=== PATIENT | female | born 1945 | race Caucasian/White ===

== ENCOUNTER → 2016-06-16 | Outpatient (CLI) | payer MEDICARE, OTHER ==
[~2016-06-16] MED LIST: ACHD5005 PO; BARIUM SUSPENSION 2.1% (VANILLA SILQ) 450 ML PO ONE; CALC-250 PO; CATHETER FLUSH 10 ML SYR IV PRN; CHOL100045 PO; CIPR500T4 PO; CYAN250010 PO; FOLI1TAB6 PO; HYDR-3454 PO; HYDR-3583 PO; HYDR-3729 PO; HYDR-757 PO; IBP800T PO; IOHEXOL 350 MG/ML 100 ML (OMNIPAQUE 350) VIAL IV ONE; MULT-608 PO; NITR-65 PO; NS 100 ML (IVPB) BAG IV ONE; OMEP20CA6 PO; PNT40TEC PO; POTA99TA15 PO; POTA99TA21 PO; ROSU10TA12; ROSU5TAB PO; SIME125C PO; SIMV10TA3 PO; SIMV20TA3 PO; THYR16.2 PO; TRM50T PO; VITA200C60 PO
--- OUTSIDE RECORDS SUMMARY | 2016-06-16 12:43 | XMS REPORT | Continuity of Care Document ---
Author Author [facility] Organization [facility] Address Unknown Phone Unavailable Care Team Providers Care Front End Ui Developer Name Role Phone PCP Unavailable Source Comments Some departments are not documenting in the electronic medical record. If you do not see the information that you expected, contact Release of Information in the Health Information Management department at [phone] for further assistance in locating additional records.[facility] Active Allergies and Adverse Reactions Not on File Current Medications Not on file Active Problems Not on file Social History Tobacco Use Types Packs/Day Years Used Date Never Assessed Plan of Care Date Type Specialty Providers Description 09/05/2016 Appointment Endocrinology Belen Guerrier MD [address] [facility] [address] [place] [address] [phone] (Fax) Health Maintenance Due Date Last Done Comments Hepatitis C Screening 1945 Physical (Comprehensive) 1954 Exam Pertussis Vaccine 1958 Tetanus Vaccine 1964 Breast Cancer Screening 1987 Colorectal Cancer 1997 Screening Shingles Vaccine 2007 Osteoporosis Screening 2012 Prevnar/Pneumovax (#1) 2012 Influenza Vaccine 12/31/2015 Results from Last 3 Months Not on file
--- NOTE | 2016-06-16 15:24 | Diagnostic Imaging Report ---
PROCEDURE: CT abdomen and pelvis with contrast. TECHNIQUE: Multiple contiguous axial images were obtained through the abdomen and pelvis after administration of intravenous contrast. INDICATION: History of colon polyps with previous partial colectomy as well as hysterectomy. Comparison with 06/15/2015. FINDINGS: The lung bases are clear. Liver appears normal. The gallbladder is absent. Bile ducts are normal. Pancreas and spleen are normal. The adrenal glands are normal. The kidneys appear normal. There is normal enhancement of the abdominal organs and vessels following IV contrast. Mild atherosclerotic change of the aorta. Oral contrast is present in the stomach. Very little contrast is seen in the small bowel. No evidence of small bowel obstruction. There has been partial small bowel resection. The appendix is normal. There is normal stool and gas pattern within the colon. There are diverticula along the descending and sigmoid colon without evidence of diverticulitis. No intra-abdominal adenopathy of pathologic size. No free air or free fluid. IMPRESSION: Postoperative changes as described with no significant changes having occurred since previous exam. Dictated by: Dictated on workstation # [id number]
--- NOTE | 2016-06-16 18:11 | Diagnostic Imaging Report ---
PROCEDURE: US Thyroid. TECHNIQUE: Multiple real-time grayscale images were obtained of the thyroid in various projections. INDICATION: Left thyroid nodule. FINDINGS: The right thyroid lobe is 4 x 1.4 x 1.4 cm. The left lobe is 4.3 x 1.4 x 1.5 cm. In the upper pole of the left thyroid lobe there is a nodule measuring 1 x 0.6 x 0.9 cm with mild peripheral vascularity. No other nodule is seen. IMPRESSION: Nonspecific 1 cm upper left thyroid lobe solid nodule seen. Follow-up study in six months is suggested. Dictated by: Dictated on workstation # [id number]
== END ==
LOC: RAD 12:39
PROVIDERS: ATTEND Internal Medicine Hematology & Oncology
DX: K57.30 Diverticulosis of large intestine without perforation or abscess without bleeding (principal); D48.7 Neoplasm of uncertain behavior of other specified sites; Z98.0 Intestinal bypass and anastomosis status; E04.1 Nontoxic single thyroid nodule
CPT/HCPCS: 74177; 76536

== ENCOUNTER 2016-06-23 14:16 | Outpatient (RCR) | payer MEDICARE, OTHER ==
--- OUTSIDE RECORDS SUMMARY | 2016-06-02 12:55 | XMS REPORT | Continuity of Care Document ---
Author Author [facility] Organization [facility] Address Unknown Phone Unavailable Care Team Providers Care Genetic Counselor Name Role Phone PCP Unavailable Source Comments Some departments are not documenting in the electronic medical record. If you do not see the information that you expected, contact Release of Information in the Health Information Management department at [phone] for further assistance in locating additional records.[facility] Active Allergies and Adverse Reactions Not on File Current Medications Not on file Active Problems Not on file Social History Tobacco Use Types Packs/Day Years Used Date Never Assessed Plan of Care Date Type Specialty Providers Description 09/05/2016 Appointment Endocrinology Belen Guerrier MD [address] [facility] [address] [place] [address] [phone] (Fax) Health Maintenance Due Date Last Done Comments Hepatitis C Screening 1945 Physical (Comprehensive) 1954 Exam Pertussis Vaccine 1958 Tetanus Vaccine 1964 Breast Cancer Screening 1987 Colorectal Cancer 1997 Screening Shingles Vaccine 2007 Osteoporosis Screening 2012 Prevnar/Pneumovax (#1) 2012 Influenza Vaccine 12/31/2015 Results from Last 3 Months Not on file
[2016-06-02 13:06] LABS: BASOPHILS % (AUTO) 0 % (0-10); EOSINOPHILS # (AUTO) 0.2 10^3/uL (0.0-0.3); EOSINOPHILS % (AUTO) 4 % (0-10); LYMPHOCYTES % (AUTO) 41 % (12-44); MEAN CORPUSCULAR HEMOGLOBIN 30 PG (25-34); MEAN CORPUSCULAR HGB CONC 34 G/DL (32-36); MEAN CORPUSCULAR VOLUME 89 FL (80-99); MEAN PLATELET VOLUME 9.2 FL (7.4-10.4); MONOCYTES # (AUTO) 0.4 X 10^3 (0.0-1.0); MONOCYTES % (AUTO) 8 % (0-12); NEUTROPHILS # (AUTO) 2.4 X 10^3 (1.8-7.8); NEUTROPHILS % (AUTO) 47 % (42-75); PLATELET COUNT 202 10^3/uL (130-400)
[2016-06-02 13:40] LABS: ALANINE AMINOTRANSFERASE 19 U/L (0-55); ALBUMIN 4.1 G/DL (3.2-4.5); ANION GAP 7 MMOL/L (5-14); ASPARTATE AMINO TRANSFERASE 27 U/L (5-34); BILIRUBIN,TOTAL 0.4 MG/DL (0.1-1.0); BLOOD UREA NITROGEN 20 MG/DL (7-18); BUN/CREATININE RATIO 26; CALCIUM 8.9 MG/DL (8.5-10.1); CARBON DIOXIDE 27 MMOL/L (21-32); CHLORIDE 104 MMOL/L (98-107); CREATININE SERUM 0.76 MG/DL (0.60-1.30); GFR ESTIMATED > 60; GLUCOSE 87 MG/DL (70-105); POTASSIUM 4.1 MMOL/L (3.6-5.0); SODIUM 138 MMOL/L (135-145); TOTAL PROTEIN 6.8 G/DL (6.4-8.2)
== END 2016-08-31 | disposition home or self-care (01) ==
LOC: ONC 14:16
PROVIDERS: ATTEND Internal Medicine Hematology & Oncology
DX: D48.1 Neoplasm of uncertain behavior of connective and other soft tissue (principal); E04.1 Nontoxic single thyroid nodule; K27.7 Chronic peptic ulcer, site unspecified, without hemorrhage or perforation; Z86.010 Personal history of colon polyps; Z79.899 Other long term (current) drug therapy
CPT/HCPCS: 36415; 80053; 84439; 84443; 85025; 99213

== ENCOUNTER → 2016-06-23 | Outpatient (CLI) | payer MEDICARE, OTHER ==
[~2016-06-23] MED LIST changes: -BARIUM SUSPENSION 2.1% (VANILLA SILQ) 450 ML PO ONE; -CATHETER FLUSH 10 ML SYR IV PRN; -IOHEXOL 350 MG/ML 100 ML (OMNIPAQUE 350) VIAL IV ONE; -NS 100 ML (IVPB) BAG IV ONE
--- OUTSIDE RECORDS SUMMARY | 2016-06-23 15:16 | XMS REPORT | Continuity of Care Document ---
Author Author [facility] Organization [facility] Address Unknown Phone Unavailable Care Team Providers Care Data Entry Technician Name Role Phone PCP Unavailable Source Comments Some departments are not documenting in the electronic medical record. If you do not see the information that you expected, contact Release of Information in the Health Information Management department at [phone] for further assistance in locating additional records.[facility] Active Allergies and Adverse Reactions Not on File Current Medications Not on file Active Problems Not on file Social History Tobacco Use Types Packs/Day Years Used Date Never Assessed Plan of Care Date Type Specialty Providers Description 09/05/2016 Appointment Endocrinology Belen Guerrier MD [address] [facility] [address] [place] [address] [phone] (Fax) Health Maintenance Due Date Last Done Comments Hepatitis C Screening 1945 Physical (Comprehensive) 1954 Exam Pertussis Vaccine 1958 Tetanus Vaccine 1964 Breast Cancer Screening 1987 Colorectal Cancer 1997 Screening Shingles Vaccine 2007 Osteoporosis Screening 2012 Prevnar/Pneumovax (#1) 2012 Influenza Vaccine 12/31/2015 Results from Last 3 Months Not on file
--- NOTE | 2016-06-23 16:12 | Diagnostic Imaging Report ---
Lumbar spine. INDICATION: Fell, back pain. FINDINGS: AP, lateral and spot lateral views were obtained. The lateral view shows the vertebral body heights and alignment to be similar to the prior MRI lumbar spine exam of 09/05/2014. There is no fracture or acute bony abnormality evident. There may be somewhat greater narrowing of disc spaces at L1-L2, L2-L3, and L3-L4 than noted on the previous study. The other intervertebral disc spaces are fairly well maintained. There are six lumbar type vertebrae. This is a developmental variant. There is no sign of a paraspinal mass. There is mild symmetrical sclerosis of the sacroiliac joints. There is no paraspinal mass visualized. IMPRESSION: There is no evidence for an acute bony abnormality. If clinical concern regarding an acute abnormality persists, then a repeat MRI lumbar spine exam would be recommended for further evaluation. Dictated by: Dictated on workstation # [id number]
--- NOTE | 2016-06-23 16:17 | Diagnostic Imaging Report ---
EXAMINATION: Thoracic spine. INDICATION: Fell, back pain. TECHNIQUE: AP, lateral, and swimmer's views were obtained. FINDINGS: The AP view does show that there is mild dextroscoliosis of the thoracic spine. This appearance is similar to the CTA chest exam of 04/13/2015. 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 These findings also seem similar to the prior exam. There is no fracture or acute bony abnormality identified. There is no evidence for a paraspinal mass either. IMPRESSION: 1. There is no evidence for an acute bony abnormality. 2. If clinical concern regarding an underlying abnormality persists, then MRI would be recommended for further evaluation. Dictated by: Dictated on workstation # [id number]
== END ==
LOC: RAD 15:14
PROVIDERS: ATTEND Nurse Practitioner Family
DX: M54.5 Low back pain (principal)
CPT/HCPCS: 72072; 72100

== ENCOUNTER → 2016-11-16 | Outpatient (CLI) | payer MEDICARE, OTHER | LOC: RAD 15:52 | PROVIDERS: ATTEND Nurse Practitioner Family | DX: Z12.31 Encounter for screening mammogram for malignant neoplasm of breast (principal) | CPT/HCPCS: 77067 ==

== ENCOUNTER → 2016-12-21 | Outpatient (CLI) | payer MEDICARE, OTHER ==
--- NOTE | 2016-12-21 10:13 | Diagnostic Imaging Report ---
PROCEDURE: US Thyroid. TECHNIQUE: Multiple Real-time grayscale images were obtained of the thyroid in various projections. INDICATION: Thyroid nodule. FINDINGS: The thyroid ultrasound exam performed on 06/05/2015 noted a 1.3 x 0.7 cm nodule in the superior pole of the left lobe of the thyroid. The I-123 thyroid uptake exam on 12/16/2015 showed normal uptake. On the subsequent thyroid ultrasound exam performed on 06/16/2016, the nodule measured 1.0 x 0.6 x 0.9 cm. That finding is again evident on this study and now measures 1.1 x 0.7 x 1.0 cm. The stable appearance of this nodule does suggest that it is not related to an aggressive neoplastic process. The other smaller hypoechoic areas within the left lobe seen previously are unchanged as well. The right lobe is homogeneous. The thyroid gland itself is not enlarged with the right lobe measuring 3.8 x 1.2 x 1.4 cm and the left lobe estimated to be 3.9 x 1.4 x 1.6 cm (normal gland size 4-5 x 2 x 2 cm or less). IMPRESSION: 1. The nodule in the superior pole of the left lobe seems stable. Most likely, this is a benign process. If further study is desired, then a followup ultrasound exam in 1 year would be recommended. 2. The overall appearance of the thyroid gland has not significantly changed. No new abnormality has developed. Dictated by: Dictated on workstation # [id number]
== END ==
LOC: RAD 09:02
PROVIDERS: ATTEND Internal Medicine Hematology & Oncology
DX: E04.1 Nontoxic single thyroid nodule (principal)
CPT/HCPCS: 76536

== ENCOUNTER → 2017-05-09 | Outpatient (CLI) | payer MEDICARE, OTHER ==
--- NOTE | 2017-05-09 19:08 | Diagnostic Imaging Report ---
INDICATION: Fall with right knee pain AP, oblique and lateral views of the right knee are obtained. There is diffuse osseous demineralization. There is a mildly depressed fracture involving the lateral tibial plateau. No other definite fracture or dislocation is seen. 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 IMPRESSION: Mildly depressed fracture involving the lateral tibial plateau without other acute abnormality seen. Dictated by: Dictated on workstation # [id number]
== END ==
LOC: RAD 18:09
PROVIDERS: ATTEND Nurse Practitioner Family
DX: S82.141A Displaced bicondylar fracture of right tibia, initial encounter for closed fracture (principal); W19.XXXA Unspecified fall, initial encounter
CPT/HCPCS: 73562

== ENCOUNTER 2017-05-22 23:25 | Emergency (ER) | payer MEDICARE, OTHER ==
[~2017-05-22] VITALS: Ht 165.1 cm; Wt 70.3 kg
--- OUTSIDE RECORDS SUMMARY | 2017-05-22 23:34 | XMS REPORT | Continuity of Care Document ---
Author Author [facility] Organization [facility] Address Unknown Phone Unavailable Care Team Providers Care Child & Adolescent Psychiatrist Name Role Phone [employer] Unavailable Unavailable Problems Medications Allergies, Adverse Reactions, Alerts Immunizations Results Vital Signs Encounters Location Location Details Encounter Type Encounter Number Reason For Visit Attending Provider ADM Date DC Date Status Source OUTPATIENT [id number] JOVANI SERNA 09/05/2016 09/05/2016 Active [facility] Divya RUSSELL Active [facility] Procedures Plan of Care Social History Assessment and Plan Family History Advance Directives Functional Status
--- OUTSIDE RECORDS SUMMARY | 2017-05-22 23:34 | XMS REPORT | Clinical Summary ---
Author Author [facility] Organization [facility] Address Unknown Phone Unavailable Care Team Providers Care Mixed Crop [employer] Livestock Farm Worker Name Role Phone PCP Unavailable Source Comments Some departments are not documenting in the electronic medical record. If you do not see the information that you expected, contact Release of Information in the Health Information Management department at [phone] for further assistance in locating additional records.[facility] Allergies Active Allergy Reactions Severity Noted Date Comments Penicillins HIVES Medium 09/05/2016 Sulfa (Sulfonamide HIVES Medium 09/05/2016 Antibiotics) Current Medications Prescription Sig. Disp. Refills Start End Date Status Date CALCIUM CARBONATE/VITAMIN Take by mouth. Active D3 (CALCIUM + D PO) MULTIVITAMIN PO Take by mouth. Active simvastatin (ZOCOR) 20 mg Take 20 mg by mouth at Active tablet bedtime daily. POTASSIUM (POTASSIMIN PO) Take by mouth. Active cholecalciferol (VITAMIN Take 1,000 Units by mouth Active D-3) 1,000 units tablet daily. magnesium oxide (MAG-OX) Take 400 mg by mouth Active 400 mg tablet daily. UBIDECARENONE (COQ-10 PO) Take by mouth. Active Active Problems No known active problems Family History Medical History Relation Name Comments Arthritis-rheumatoid Daughter Thyroid Disease Daughter Heart Disease Father Hypertension Father Osteoporosis Father Stroke Father Cancer Mother Hypertension Sister Relation Name Status Comments Daughter Alive Father Mother Sister Alive Social History Tobacco Use Types Packs/Day Years Used Date Never Smoker Smokeless Tobacco: Never Used Alcohol Use Drinks/Week oz/Week Comments No Sex Assigned at Date Recorded Not on file Last Filed Vital Signs Vital Sign Reading Time Taken Blood Pressure 144/75 09/05/2016 1:01 PM CDT Pulse 74 09/05/2016 1:01 PM CDT Temperature - - Respiratory Rate - - Oxygen Saturation - - Inhaled Oxygen - - Concentration Weight 71.5 kg (157 lb 11.2 oz) 09/05/2016 1:01 PM CDT Height 164.6 cm (5' 4.8") 09/05/2016 1:01 PM CDT Body Mass Index 26.4 09/05/2016 1:01 PM CDT Plan of Treatment Health Maintenance Due Date Last Done Comments HEPATITIS C SCREENING 1945 PHYSICAL (COMPREHENSIVE) 1952 EXAM PERTUSSIS VACCINE 1958 TETANUS VACCINE 1964 BREAST CANCER SCREENING 1987 COLORECTAL CANCER 1997 SCREENING SHINGLES VACCINE 2007 OSTEOPOROSIS SCREENING 2012 PREVNAR/PNEUMOVAX (#1) 2012 INFLUENZA VACCINE 11/29/2016 Results Not on filefrom Last 3 Months
--- OUTSIDE RECORDS SUMMARY | 2017-05-22 23:36 | XMS REPORT | CCD ---
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 Respiratory No snoring 09/10/2013 Respiratory No wheezing 09/10/2013 Gastrointestinal No hemorrhoids 2013 Gastrointestinal No abdominal pain 2013 Gastrointestinal No constipation 2013 Gastrointestinal No diarrhea 09/10/2013 Gastrointestinal No gastroesophageal reflux 09/10/2013 Gastrointestinal No melena 09/10/2013 Gastrointestinal No nausea 09/10/2013 Gastrointestinal No vomiting 09/10/2013 Genitourinary/Nephrology No dysuria 09/10 Genitourinary/Nephrology No nocturia Genitourinary/Nephrology No urinary incontinence 09/10/2013 Dermatologic No rash 09/10/2013 Dermatologic No scar 09/10/2013 Neurologic No dizziness 09/10/2013 Neurologic No headache 09/10/2013 Neurologic No neck pain 09/10/2013 Neurologic No syncope 09/10/2013 Psychiatric No anxiety 09/10/2013 Psychiatric No depression 09/10/2013 Constitutional No recent illness 2013 Constitutional No chills 05/27/2013 Constitutional No fatigue 05/27/2013 Constitutional No fever 05/27/2013 Constitutional No insomnia 05/27/2013 Constitutional No malaise 05/27/2013 Eyes No blindness 05/27/2013 Eyes No vision change 05/27/2013 Ears/Nose/Throat/Neck No dental pain Ears/Nose/Throat/Neck No dizziness 2013 Ears/Nose/Throat/Neck No dysphagia 2013 Ears/Nose/Throat/Neck No headache 2013 Ears/Nose/Throat/Neck No hearing loss Ears/Nose/Throat/Neck No nasal allergies 05/27/2013 Ears/Nose/Throat/Neck No sore throat Ears/Nose/Throat/Neck No postnasal drip 05/27/2013 Ears/Nose/Throat/Neck No sinus congestion 05/27/2013 Cardiovascular No chest pain/pressure Cardiovascular No dyspnea 05/27/2013 Cardiovascular No edema 05/27/2013 Cardiovascular No exercise intolerance Cardiovascular No fatigue 05/27/2013 Cardiovascular No near-syncope/dizziness 05/27/2013 Respiratory No chest tightness 2013 Respiratory No cigarette smoking 2013 Respiratory No cough 05/27/2013 Respiratory No dyspnea 05/27/2013 Respiratory No pedal edema 05/27/2013 Respiratory No snoring 05/27/2013 Respiratory No wheezing 05/27/2013 Gastrointestinal No hemorrhoids 2013 Gastrointestinal No abdominal pain 2013 Gastrointestinal No constipation 2013 Gastrointestinal No diarrhea 05/27/2013 Gastrointestinal No gastroesophageal reflux 05/27/2013 Gastrointestinal No melena 05/27/2013 Gastrointestinal No nausea 05/27/2013 Gastrointestinal No vomiting 05/27/2013 Genitourinary/Nephrology No dysuria 05/27 Genitourinary/Nephrology No nocturia Genitourinary/Nephrology No urinary incontinence 05/27/2013 Dermatologic No rash 05/27/2013 Dermatologic No scar 05/27/2013 Neurologic No dizziness 05/27/2013 Neurologic No headache 05/27/2013 Neurologic No neck pain 05/27/2013 Neurologic No syncope 05/27/2013 Psychiatric No anxiety 05/27/2013 Psychiatric No depression 05/27/2013 Constitutional No recent illness 2012 Constitutional No chills 03/20/2013 Constitutional No fatigue 03/20/2013 Constitutional No fever 03/20/2013 Constitutional No insomnia 03/20/2013 Constitutional No malaise 03/20/2013 Psychiatric No anxiety 03/20/2013 Psychiatric No depression 03/20/2013 Dermatologic No rash 03/20/2013 Dermatologic No scar 03/20/2013 Genitourinary/Nephrology No dysuria 03/20 Genitourinary/Nephrology No nocturia Genitourinary/Nephrology No urinary incontinence 03/20/2013 Gastrointestinal No hemorrhoids 2012 Gastrointestinal No abdominal pain 2012 Gastrointestinal No constipation 2012 Gastrointestinal No diarrhea 03/20/2013 Gastrointestinal No gastroesophageal reflux 03/20/2013 Gastrointestinal No melena 03/20/2013 Gastrointestinal No nausea 03/20/2013 Gastrointestinal No vomiting 03/20/2013 Respiratory No chest tightness 2012 Respiratory No cigarette smoking 2012 Respiratory No cough 03/20/2013 Respiratory No dyspnea 03/20/2013 Respiratory No pedal edema 03/20/2013 Respiratory No snoring 03/20/2013 Respiratory No wheezing 03/20/2013 Cardiovascular No chest pain/pressure Cardiovascular No dyspnea 03/20/2013 Cardiovascular No edema 03/20/2013 Cardiovascular No exercise intolerance Cardiovascular No fatigue 03/20/2013 Cardiovascular No near-syncope/dizziness 03/20/2013 Ears/Nose/Throat/Neck No dental pain Ears/Nose/Throat/Neck No dizziness 2012 Ears/Nose/Throat/Neck No dysphagia 2012 Ears/Nose/Throat/Neck No headache 2012 Ears/Nose/Throat/Neck No hearing loss Ears/Nose/Throat/Neck No nasal allergies 03/20/2013 Ears/Nose/Throat/Neck No sore throat Ears/Nose/Throat/Neck No postnasal drip 03/20/2013 Ears/Nose/Throat/Neck No sinus congestion 03/20/2013 Eyes No blindness 03/20/2013 Eyes No vision change 03/20/2013 Neurologic No dizziness 03/20/2013 Neurologic No headache 03/20/2013 Neurologic No neck pain 03/20/2013 Neurologic No syncope 03/20/2013 Physical Exam Exam Name System Name Item Name Status Result Effective Dates Notes Full Exam - Orthopedics Constitutional general appearance Overall: well nourished 05/17/2017 None Full Exam - Orthopedics Constitutional general appearance Overall: well developed 05/17/2017 None Full Exam - Orthopedics Constitutional general appearance Overall: in no acute distress 05/17/2017 None Full Exam - Orthopedics Eyes conjunctiva/ eyelids Overall: conjunctiva clear 05/17/2017 None Full Exam - Orthopedics Eyes conjunctiva/ eyelids Overall: eyelids normal 05/17/2017 None Full Exam - Orthopedics Ears/Nose/Throat lips/teeth/gingiva Overall: benign lips 05/17/2017 None Full Exam - Orthopedics Ears/Nose/Throat oral cavity/pharynx/larynx Overall: oral mucosa clear 05/17/2017 None Full Exam - Orthopedics Respiratory respiratory effort/rhythm Overall: no retractions 05/17/2017 None Full Exam - Orthopedics Respiratory respiratory effort/rhythm Overall: normal rate 05/17/2017 None Full Exam - Orthopedics Psychiatric orientation/consciousness Overall: oriented to person, place and time 05/17/2017 None Full Exam - Orthopedics Psychiatric mood and affect Overall: normal mood and affect 05/17/2017 None Full Exam - Orthopedics Psychiatric appearance Overall: well-groomed, good eye contact 05/17/2017 None Full Exam - Orthopedics MS: head/neck insp & palp - H/N Overall: head atraumatic 05/17/2017 None Full Exam - Orthopedics MS: right lower extremity insp & palp - RLE Knee: joint tenderness 05/17/2017 None Full Exam - Orthopedics MS: right lower extremity range of motion - RLE Knee: pain with flexion 05/17/2017 None Full Exam - Orthopedics MS: right lower extremity range of motion - RLE Knee: pain with extension 05/17/2017 None Full Exam - Orthopedics Integument insp & palp - right upper extremity Hand inspection: erythema 05/17/2017 Dry, peeling, cracked hands Full Exam - Orthopedics Constitutional general appearance Overall: well nourished 12/22/2016 None Full Exam - Orthopedics Constitutional general appearance Overall: well developed 12/22/2016 None Full Exam - Orthopedics Constitutional general appearance Overall: in no acute distress 12/22/2016 None Full Exam - Orthopedics Eyes conjunctiva/ eyelids Overall: conjunctiva clear 12/22/2016 None Full Exam - Orthopedics Eyes conjunctiva/ eyelids Overall: eyelids normal 12/22/2016 None Full Exam - Orthopedics Ears/Nose/Throat lips/teeth/gingiva Overall: benign lips 12/22/2016 None Full Exam - Orthopedics Ears/Nose/Throat oral cavity/pharynx/larynx Overall: oral mucosa clear 12/22/2016 None Full Exam - Orthopedics Respiratory respiratory effort/rhythm Overall: no retractions 12/22/2016 None Full Exam - Orthopedics Respiratory respiratory effort/rhythm Overall: normal rate 12/22/2016 None Full Exam - Orthopedics MS: Bilateral Upper Extremities insp & palp - UE Shoulders: normal appearance 12/22/2016 None Full Exam - Orthopedics Psychiatric orientation/consciousness Overall: oriented to person, place and time 12/22/2016 None Full Exam - Orthopedics Psychiatric mood and affect Overall: normal mood and affect 12/22/2016 None Full Exam - Orthopedics Psychiatric appearance Overall: well-groomed, good eye contact 12/22/2016 None Full Exam - Orthopedics MS: left upper extremity range of motion - LUE Shoulder: pain with flexion 12/22/2016 None Full Exam - Orthopedics MS: left upper extremity range of motion - LUE Shoulder: pain with extension 12/22/2016 None Full Exam - Orthopedics Constitutional general appearance Overall: well nourished 09/07/2016 None Full Exam - Orthopedics Constitutional general appearance Overall: well developed 09/07/2016 None Full Exam - Orthopedics Constitutional general appearance Overall: in no acute distress 09/07/2016 None Full Exam - Orthopedics Eyes conjunctiva/ eyelids Overall: conjunctiva clear 09/07/2016 None Full Exam - Orthopedics Eyes conjunctiva/ eyelids Overall: eyelids normal 09/07/2016 None Full Exam - Orthopedics Ears/Nose/Throat lips/teeth/gingiva Overall: benign lips 09/07/2016 None Full Exam - Orthopedics Ears/Nose/Throat oral cavity/pharynx/larynx Overall: oral mucosa clear 09/07/2016 None Full Exam - Orthopedics Respiratory respiratory effort/rhythm Overall: no retractions 09/07/2016 None Full Exam - Orthopedics Respiratory respiratory effort/rhythm Overall: normal rate 09/07/2016 None Full Exam - Orthopedics Psychiatric orientation/consciousness Overall: oriented to person, place and time 09/07/2016 None Full Exam - Orthopedics Psychiatric mood and affect Overall: normal mood and affect 09/07/2016 None Full Exam - Orthopedics Psychiatric appearance Overall: well-groomed, good eye contact 09/07/2016 None Full Exam - Orthopedics MS: Bilateral Upper Extremities insp & palp - UE Shoulders: normal appearance 09/07/2016 None Full Exam - Orthopedics MS: Bilateral Upper Extremities range of motion - UE Shoulders: pain with flexion 09/07/2016 None Full Exam - Dermatology Constitutional general appearance Overall: well nourished 08/15/2016 None Full Exam - Dermatology Constitutional general appearance Overall: well developed 08/15/2016 None Full Exam - Dermatology Constitutional general appearance Overall: in no acute distress 08/15/2016 None Full Exam - Dermatology Eyes conjunctiva/ eyelids Overall: clear conjunctiva bilaterally 08/15/2016 None Full Exam - Dermatology Eyes conjunctiva/ eyelids Overall: normal eyelids 08/15/2016 None Full Exam - Dermatology Ears/Nose/Throat lips/teeth/gingiva Overall: benign lips 08/15/2016 None Full Exam - Dermatology Respiratory respiratory effort/rhythm Overall: no retractions 08/15/2016 None Full Exam - Dermatology Respiratory respiratory effort/rhythm Overall: normal rate 08/15/2016 None Full Exam - Dermatology Integument insp & palp - right lower extremity Location: on the calf 08/15/2016 None Full Exam - Dermatology Integument insp & palp - right lower extremity Lesion: papule 08/15/2016 None Full Exam - Dermatology Integument insp & palp - right lower extremity Color: erythematous 08/15/2016 None Full Exam - Dermatology Integument insp & palp - right lower extremity Appearance: tender 08/15/2016 None Full Exam - Dermatology Psychiatric orientation Overall: oriented to person, place and time 08/15/2016 None Full Exam - Dermatology Psychiatric mood and affect Overall: normal mood and affect 08/15/2016 None Full Exam - Orthopedics Constitutional general appearance Overall: well nourished 06/30/2016 None Full Exam - Orthopedics Constitutional general appearance Overall: well developed 06/30/2016 None Full Exam - Orthopedics Constitutional general appearance Overall: in no acute distress 06/30/2016 None Full Exam - Orthopedics Eyes conjunctiva/ eyelids Overall: conjunctiva clear 06/30/2016 None Full Exam - Orthopedics Eyes conjunctiva/ eyelids Overall: eyelids normal 06/30/2016 None Full Exam - Orthopedics Ears/Nose/Throat lips/teeth/gingiva Overall: benign lips 06/30/2016 None Full Exam - Orthopedics Ears/Nose/Throat oral cavity/pharynx/larynx Overall: oral mucosa clear 06/30/2016 None Full Exam - Orthopedics Respiratory respiratory effort/rhythm Overall: no retractions 06/30/2016 None Full Exam - Orthopedics Respiratory respiratory effort/rhythm Overall: normal rate 06/30/2016 None Full Exam - Orthopedics Psychiatric orientation/consciousness Overall: oriented to person, place and time 06/30/2016 None Full Exam - Orthopedics Psychiatric mood and affect Overall: normal mood and affect 06/30/2016 None Full Exam - Orthopedics Psychiatric appearance Overall: well-groomed, good eye contact 06/30/2016 None Full Exam - Orthopedics MS: head/neck insp & palp - H/N Overall: head atraumatic 06/30/2016 None Full Exam - Orthopedics Constitutional general appearance Overall: well nourished 06/07/2016 None Full Exam - Orthopedics Constitutional general appearance Overall: well developed 06/07/2016 None Full Exam - Orthopedics Constitutional general appearance Overall: in no acute distress 06/07/2016 None Full Exam - Orthopedics Eyes conjunctiva/ eyelids Overall: conjunctiva clear 06/07/2016 None Full Exam - Orthopedics Eyes conjunctiva/ eyelids Overall: eyelids normal 06/07/2016 None Full Exam - Orthopedics Ears/Nose/Throat lips/teeth/gingiva Overall: benign lips 06/07/2016 None Full Exam - Orthopedics Ears/Nose/Throat oral cavity/pharynx/larynx Overall: oral mucosa clear 06/07/2016 None Full Exam - Orthopedics Respiratory respiratory effort/rhythm Overall: no retractions 06/07/2016 None Full Exam - Orthopedics Respiratory respiratory effort/rhythm Overall: normal rate 06/07/2016 None Full Exam - Orthopedics Psychiatric orientation/consciousness Overall: oriented to person, place and time 06/07/2016 None Full Exam - Orthopedics Psychiatric mood and affect Overall: normal mood and affect 06/07/2016 None Full Exam - Orthopedics Psychiatric appearance Overall: well-groomed, good eye contact 06/07/2016 None Full Exam - Orthopedics MS: spine/rib/pelvis insp & palp - S/R/P Thoracic/lumbar muscles palpation: tender left parathoracic 06/07/2016 None Full Exam - Orthopedics MS: spine/rib/pelvis insp & palp - S/R/P Thoracic/lumbar muscles palpation: tender right parathoracic 06/07/2016 None Full Exam - Orthopedics MS: spine/rib/pelvis insp & palp - S/R/P Thoracic/lumbar muscles palpation: tender left paralumbar 06/07/2016 None Full Exam - Orthopedics MS: spine/rib/pelvis insp & palp - S/R/P Thoracic/lumbar muscles palpation: tender right paralumbar 06/07/2016 None Full Exam - Orthopedics Constitutional general appearance Overall: well nourished 02/25/2016 None Full Exam - Orthopedics Constitutional general appearance Overall: well developed 02/25/2016 None Full Exam - Orthopedics Constitutional general appearance Overall: in no acute distress 02/25/2016 None Full Exam - Orthopedics Eyes conjunctiva/ eyelids Overall: conjunctiva clear 02/25/2016 None Full Exam - Orthopedics Ears/Nose/Throat lips/teeth/gingiva Overall: benign lips 02/25/2016 None Full Exam - Orthopedics Ears/Nose/Throat oral cavity/pharynx/larynx Overall: oral mucosa clear 02/25/2016 None Full Exam - Orthopedics Respiratory respiratory effort/rhythm Overall: no retractions 02/25/2016 None Full Exam - Orthopedics Respiratory respiratory effort/rhythm Overall: normal rate 02/25/2016 None Full Exam - Orthopedics MS: right lower extremity insp & palp - RLE Lower leg: tenderness 02/25/2016 None Full Exam - Orthopedics MS: right lower extremity insp & palp - RLE Lower leg: swelling 02/25/2016 None Full Exam - Orthopedics MS: right lower extremity range of motion - RLE Knee: pain with extension 02/25/2016 None Full Exam - Orthopedics Neurological orientation Overall: alert 02/25/2016 None Full Exam - Orthopedics Neurological orientation Overall: oriented to person, place and time 02/25/2016 None Full Exam - Orthopedics Constitutional general appearance Overall: well nourished 02/03/2015 None Full Exam - Orthopedics Constitutional general appearance Overall: well developed 02/03/2015 None Full Exam - Orthopedics Constitutional general appearance Overall: in no acute distress 02/03/2015 None Full Exam - Orthopedics Psychiatric orientation/consciousness Overall: oriented to person, place and time 02/03/2015 None Full Exam - Orthopedics MS: right upper extremity insp & palp - RUE Forearm: deformity 02/03/2015 None Full Exam - Orthopedics MS: right upper extremity insp & palp - RUE Forearm: swelling 02/03/2015 None Full Exam - Orthopedics MS: right upper extremity range of motion - RUE Overall: full range of motion in shoulder 02/03/2015 None Full Exam - Orthopedics MS: right upper extremity range of motion - RUE Overall: full range of motion in elbow 02/03/2015 None Full Exam - Orthopedics MS: right upper extremity range of motion - RUE Overall: full range of motion in wrist 02/03/2015 None Full Exam - Orthopedics MS: right upper extremity range of motion - RUE Overall: full range of motion in fingers 02/03/2015 None Full Exam - Orthopedics MS: right upper extremity range of motion - RUE Overall: symmetric range of motion 02/03/2015 None Full Exam - Orthopedics MS: right upper extremity stability - RUE Overall: shoulder, elbow, wrist stable 02/03/2015 None Full Exam - Orthopedics MS: right upper extremity strength & tone - RUE Overall: full shoulder muscles strength 02/03/2015 None Full Exam - Orthopedics MS: right upper extremity strength & tone - RUE Overall: full upper arm strength 02/03/2015 None Full Exam - Orthopedics MS: right upper extremity strength & tone - RUE Overall: full lower arm strength 02/03/2015 None Full Exam - General Constitutional general appearance Overall: well nourished 08/25/2014 None Full Exam - General Constitutional general appearance Overall: well developed 08/25/2014 None Full Exam - General Constitutional general appearance Overall: in no acute distress 08/25/2014 None Full Exam - General Respiratory auscultation Right upper lung field: a normal exam 08/25/2014 None Full Exam - General Respiratory auscultation Right middle lung field: a normal exam 08/25/2014 None Full Exam - General Respiratory auscultation Right lower lung field: a normal exam 08/25/2014 None Full Exam - General Respiratory auscultation Left lower lung field: a normal exam 08/25/2014 None Full Exam - General Respiratory auscultation Overall: breath sounds clear bilaterally 08/25/2014 None Full Exam - General Respiratory auscultation Left upper lung field: a normal exam 08/25/2014 None Full Exam - General Respiratory auscultation Diffuse: a normal exam 08/25/2014 None Full Exam - General Cardiovascular auscultation of heart Overall: no murmurs 08/25/2014 None Full Exam - General Cardiovascular auscultation of heart Overall: regular rate 08/25/2014 None Full Exam - General Cardiovascular auscultation of heart Overall: normal heart sounds 08/25/2014 None Full Exam - General Cardiovascular auscultation of heart S1: a normal exam 08/25/2014 None Full Exam - General Cardiovascular auscultation of heart S2: a normal exam 08/25/2014 None Full Exam - General Cardiovascular auscultation of heart Rhythm: regular rhythm 08/25/2014 None Full Exam - General Cardiovascular auscultation of heart Rate: regular rate 08/25/2014 None Full Exam - General Abdomen abdominal exam Overall: normal bowel sounds 08/25/2014 None Full Exam - General Musculoskeletal spine , ribs and pelvis Sacroiliac joints: tender left sacroiliac joint 08/25/2014 None Full Exam - General Ears/Nose/Throat otoscopic exam Right tympanic membrane: a normal exam 08/25/2014 None Full Exam - General Ears/Nose/Throat otoscopic exam Right external auditory canal: a normal exam 08/25/2014 None Full Exam - General Ears/Nose/Throat otoscopic exam Right external auditory canal: nontender 08/25/2014 None Full Exam - General Ears/Nose/Throat otoscopic exam Left external auditory canal: a normal exam 08/25/2014 None Full Exam - General Ears/Nose/Throat otoscopic exam Left external auditory canal: nontender 08/25/2014 None Full Exam - General Ears/Nose/Throat otoscopic exam Overall: tympanic membranes clear 08/25/2014 None Full Exam - General Ears/Nose/Throat otoscopic exam Overall: external auditory canals clear 08/25/2014 None Full Exam - General Ears/Nose/Throat otoscopic exam [place]: a normal exam 08/25/2014 None Full Exam - General Ears/Nose/Throat otoscopic exam Left tympanic membrane: a normal exam 08/25/2014 None Full Exam - General Psychiatric orientation/consciousness Overall: oriented to person, place and time 08/25/2014 None Full Exam - General Psychiatric orientation/consciousness Level of consciousness: alert 08/25/2014 None Full Exam - General 1994 Constitutional general appearance Development: well developed 06/11/2014 None Full Exam - General 1994 Constitutional general appearance Development: appears stated age 0206/11/2014 None Full Exam - General 1994 Constitutional general appearance Development: appears older than stated age 0206/11/2014 None Full Exam - General 1994 Constitutional general appearance Overall: well developed 06/11/2014 None Full Exam - General 1994 Constitutional general appearance Overall: in no acute distress 06/11/2014 None Full Exam - General 1994 Constitutional general appearance Overall: well nourished 06/11/2014 None Full Exam - General 1994 Constitutional general appearance Hygiene/Attention to Grooming: good hygiene 06/11/2014 None Full Exam - General 1994 Eyes conjunctiva /eyelids Overall: conjunctiva clear 06/11/2014 None Full Exam - General 1994 Eyes conjunctiva /eyelids Overall: cornea clear 06/11/2014 None Full Exam - General 1994 Eyes conjunctiva /eyelids Overall: eyelids normal 06/11/2014 None Full Exam - General 1994 Eyes pupils and irises Overall: pupils equal, round, reactive to light and accomodation 06/11/2014 None Full Exam - General 1994 Ears/Nose/Throat lips/teeth/gingiva Overall: benign lips 06/11/2014 None Full Exam - General 1994 Ears/Nose/Throat oral cavity/pharynx/larynx Overall: oral mucosa clear 06/11/2014 None Full Exam - General 1994 Ears/Nose/Throat oral cavity/pharynx/larynx Overall: oropharyngeal mucosa clear 06/11/2014 None Full Exam - General 1994 Ears/Nose/Throat oral cavity/pharynx/larynx Overall: hypopharynx benign 06/11/2014 None Full Exam - General 1994 Ears/Nose/Throat oral cavity/pharynx/larynx Overall: no masses 06/11/2014 None Full Exam - General 1994 Respiratory auscultation Overall: breath sounds clear bilaterally 06/11/2014 None Full Exam - General 1994 Respiratory respiratory effort/rhythm Overall: no retractions 06/11/2014 None Full Exam - General 1994 Respiratory respiratory effort/rhythm Overall: normal rate 06/11/2014 None Full Exam - General 1994 Cardiovascular extremities Overall: no clubbing 06/11/2014 None Full Exam - General 1994 Cardiovascular auscultation of heart Overall: regular rate 06/11/2014 None Full Exam - General 1994 Cardiovascular auscultation of heart Overall: normal heart sounds 06/11/2014 None Full Exam - General 1994 Abdomen abdominal exam Overall: no tenderness 06/11/2014 None Full Exam - General 1994 Abdomen abdominal exam Overall: normal bowel sounds 06/11/2014 None Full Exam - General 1994 Musculoskeletal digits and nails Digits: a normal exam 06/11/2014 None Full Exam - General 1994 Musculoskeletal spine, ribs and pelvis Posture: a normal exam 06/11/2014 tender to palpation over the chest wall on right and lower chest anteriorly as well as posterior right flank Full Exam - General 1994 Integument inspection of skin Overall: few scattered moles, no gross abnormalities 06/11/2014 None Full Exam - General 1994 Neurologic deep tendon reflexes Overall: deep tendon reflexes intact 06/11/2014 None Full Exam - General 1994 Neurologic cranial nerves Overall: crainial nerves 2 - 12 grossly intact 06/11/2014 None Full Exam - General 1994 Psychiatric orientation/consciousness Overall: oriented to person, place and time 06/11/2014 None Full Exam - General 1994 Psychiatric mood and affect Overall: normal mood and affect 06/11/2014 None Full Exam - General 1994 Psychiatric mood and affect Mood: happy 06/11/2014 None Full Exam - General 1994 Constitutional general appearance Overall: well developed 03/04/2014 None Full Exam - General 1994 Constitutional general appearance Overall: in no acute distress 03/04/2014 None Full Exam - General 1994 Constitutional general appearance Overall: well nourished 03/04/2014 None Full Exam - General 1994 Psychiatric orientation/consciousness Overall: oriented to person, place and time 03/04/2014 None Full Exam - General 1994 Musculoskeletal lower extremity Inspection - knee: redness 03/04/2014 None Full Exam - General 1994 Musculoskeletal lower extremity Palpation - knee: warm 03/04/2014 None Full Exam - General 1994 Musculoskeletal lower extremity Palpation - knee: small effusion 03/04/2014 None Full Exam - General 1994 Musculoskeletal lower extremity ROM - knee: pain with flexion 03/04/2014 None Full Exam - General 1994 Constitutional general appearance Overall: well developed 01/27/2014 None Full Exam - General 1994 Constitutional general appearance Overall: in no acute distress 01/27/2014 None Full Exam - General 1994 Constitutional general appearance Overall: well nourished 01/27/2014 None Full Exam - General 1994 Respiratory auscultation Overall: breath sounds clear bilaterally 01/27/2014 None Full Exam - General 1994 Respiratory respiratory effort/rhythm Overall: normal rate 01/27/2014 None Full Exam - General 1994 Respiratory respiratory effort/rhythm Overall: no retractions 01/27/2014 None Full Exam - General 1994 Cardiovascular extremities Overall: no clubbing 01/27/2014 None Full Exam - General 1994 Cardiovascular auscultation of heart Overall: regular rate 01/27/2014 None Full Exam - General 1994 Cardiovascular auscultation of heart Overall: normal heart sounds 01/27/2014 None Full Exam - General 1994 Cardiovascular auscultation of heart Overall: no murmurs 01/27/2014 None Full Exam - General 1994 Psychiatric orientation/consciousness Overall: oriented to person, place and time 01/27/2014 None Full Exam - General 1994 Integument inspection of skin Location: right hand 01/27/2014 palm Full Exam - General 1994 Integument inspection of skin Dermatitis: erythema 01/27/2014 erythema noted to palm and pads of all 5 fingers-slight blistering of digits 1 and 2. Skin intact Full Exam - General 1994 Constitutional general appearance Development: well developed 01/16/2014 None Full Exam - General 1994 Constitutional general appearance Development: appears stated age 0901/16/2014 None Full Exam - General 1994 Constitutional general appearance Development: appears older than stated age 0901/16/2014 None Full Exam - General 1994 Constitutional general appearance Overall: well developed 01/16/2014 None Full Exam - General 1994 Constitutional general appearance Overall: in no acute distress 01/16/2014 None Full Exam - General 1994 Constitutional general appearance Overall: well nourished 01/16/2014 None Full Exam - General 1994 Constitutional general appearance Hygiene/Attention to Grooming: good hygiene 01/16/2014 None Full Exam - General 1994 Eyes conjunctiva /eyelids Overall: conjunctiva clear 01/16/2014 None Full Exam - General 1994 Eyes conjunctiva /eyelids Overall: cornea clear 01/16/2014 None Full Exam - General 1994 Eyes conjunctiva /eyelids Overall: eyelids normal 01/16/2014 None Full Exam - General 1994 Eyes pupils and irises Overall: pupils equal, round, reactive to light and accomodation 01/16/2014 None Full Exam - General 1994 Ears/Nose/Throat otoscopic exam Overall: external auditory canals clear 01/16/2014 None Full Exam - General 1994 Ears/Nose/Throat otoscopic exam Overall: tympanic membranes clear 01/16/2014 None Full Exam - General 1994 Ears/Nose/Throat lips/teeth/gingiva Overall: benign lips 01/16/2014 None Full Exam - General 1994 Ears/Nose/Throat lips/teeth/gingiva Overall: normal dentition 01/16/2014 None Full Exam - General 1994 Ears/Nose/Throat oral cavity/pharynx/larynx Overall: oral mucosa clear 01/16/2014 None Full Exam - General 1994 Ears/Nose/Throat oral cavity/pharynx/larynx Overall: oropharyngeal mucosa clear 01/16/2014 None Full Exam - General 1995 Ears/Nose/Throat oral cavity/pharynx/larynx Overall: hypopharynx benign 01/16/2014 None Full Exam - General 1994 Ears/Nose/Throat oral cavity/pharynx/larynx Overall: no masses 01/16/2014 None Full Exam - General 1994 Respiratory auscultation Overall: breath sounds clear bilaterally 01/16/2014 None Full Exam - General 1994 Respiratory respiratory effort/rhythm Overall: no retractions 01/16/2014 None Full Exam - General 1994 Respiratory respiratory effort/rhythm Overall: normal rate 01/16/2014 None Full Exam - General 1994 Cardiovascular extremities Overall: no clubbing 01/16/2014 None Full Exam - General 1994 Cardiovascular auscultation of heart Overall: regular rate 01/16/2014 None Full Exam - General 1994 Cardiovascular auscultation of heart Overall: normal heart sounds 01/16/2014 None Full Exam - General 1994 Abdomen abdominal exam Overall: normal bowel sounds 01/16/2014 None Full Exam - General 1994 Integument inspection of skin Overall: few scattered moles, no gross abnormalities 01/16/2014 None Full Exam - General 1994 Neurologic deep tendon reflexes Overall: deep tendon reflexes intact 01/16/2014 None Full Exam - General 1994 Neurologic cranial nerves Overall: crainial nerves 2 - 12 grossly intact 01/16/2014 None Full Exam - General 1994 Psychiatric orientation/consciousness Overall: oriented to person, place and time 01/16/2014 None Full Exam - General 1994 Psychiatric mood and affect Overall: normal mood and affect 01/16/2014 None Full Exam - General 1994 Psychiatric mood and affect Mood: happy 01/16/2014 None Full Exam - General 1994 Abdomen abdominal exam Upper quadrant: tender to palpation 01/16/2014 None Full Exam - General 1994 Abdomen abdominal exam Lower quadrant: non-tender to palpation 01/16/2014 None Full Exam - Orthopedics Constitutional general appearance Overall: well nourished 11/21/2013 None Full Exam - Orthopedics Constitutional general appearance Overall: well developed 11/21/2013 None Full Exam - Orthopedics Constitutional general appearance Overall: in no acute distress 11/21/2013 None Full Exam - Orthopedics Constitutional general appearance Overall: normal body habitus 11/21/2013 None Full Exam - Orthopedics Psychiatric orientation/consciousness Overall: oriented to person, place and time 11/21/2013 None Full Exam - Orthopedics MS: left upper extremity insp & palp - LUE Wrist: tender 11/21/2013 None Full Exam - Orthopedics MS: left upper extremity insp & palp - LUE Wrist: nodule 11/21/2013 None Full Exam - General 1994 Constitutional general appearance Development: well developed 09/10/2013 None Full Exam - General 1994 Constitutional general appearance Development: appears stated age 0509/10/2013 None Full Exam - General 1994 Constitutional general appearance Development: appears older than stated age 0509/10/2013 None Full Exam - General 1994 Constitutional general appearance Overall: well developed 09/10/2013 None Full Exam - General 1994 Constitutional general appearance Overall: in no acute distress 09/10/2013 None Full Exam - General 1994 Constitutional general appearance Overall: well nourished 09/10/2013 None Full Exam - General 1994 Constitutional general appearance Hygiene/Attention to Grooming: good hygiene 09/10/2013 None Full Exam - General 1994 Eyes conjunctiva /eyelids Overall: conjunctiva clear 09/10/2013 None Full Exam - General 1994 Eyes conjunctiva /eyelids Overall: cornea clear 09/10/2013 None Full Exam - General 1994 Eyes conjunctiva /eyelids Overall: eyelids normal 09/10/2013 None Full Exam - General 1994 Eyes pupils and irises Overall: pupils equal, round, reactive to light and accomodation 09/10/2013 None Full Exam - General 1994 Ears/Nose/Throat lips/teeth/gingiva Overall: benign lips 09/10/2013 None Full Exam - General 1994 Ears/Nose/Throat oral cavity/pharynx/larynx Overall: oral mucosa clear 09/10/2013 None Full Exam - General 1994 Ears/Nose/Throat oral cavity/pharynx/larynx Overall: oropharyngeal mucosa clear 09/10/2013 None Full Exam - General 1994 Ears/Nose/Throat oral cavity/pharynx/larynx Overall: hypopharynx benign 09/10/2013 None Full Exam - General 1994 Ears/Nose/Throat oral cavity/pharynx/larynx Overall: no masses 09/10/2013 None Full Exam - General 1994 Respiratory auscultation Overall: breath sounds clear bilaterally 09/10/2013 None Full Exam - General 1994 Respiratory respiratory effort/rhythm Overall: no retractions 09/10/2013 None Full Exam - General 1994 Respiratory respiratory effort/rhythm Overall: normal rate 09/10/2013 None Full Exam - General 1994 Cardiovascular extremities Overall: no clubbing 09/10/2013 None Full Exam - General 1994 Cardiovascular auscultation of heart Overall: regular rate 09/10/2013 None Full Exam - General 1994 Cardiovascular auscultation of heart Overall: normal heart sounds 09/10/2013 None Full Exam - General 1994 Abdomen abdominal exam Overall: no tenderness 09/10/2013 None Full Exam - General 1994 Abdomen abdominal exam Overall: normal bowel sounds 09/10/2013 None Full Exam - General 1994 Musculoskeletal digits and nails Digits: a normal exam 09/10/2013 None Full Exam - General 1994 Musculoskeletal spine, ribs and pelvis Posture: a normal exam 09/10/2013 tender to palpation over the chest wall on right and lower chest anteriorly as well as posterior right flank Full Exam - General 1994 Integument inspection of skin Overall: few scattered moles, no gross abnormalities 09/10/2013 None Full Exam - General 1994 Neurologic deep tendon reflexes Overall: deep tendon reflexes intact 09/10/2013 None Full Exam - General 1994 Neurologic cranial nerves Overall: crainial nerves 2 - 12 grossly intact 09/10/2013 None Full Exam - General 1994 Psychiatric orientation/consciousness Overall: oriented to person, place and time 09/10/2013 None Full Exam - General 1994 Psychiatric mood and affect Overall: normal mood and affect 09/10/2013 None Full Exam - General 1994 Psychiatric mood and affect Mood: happy 09/10/2013 None Full Exam - General 1994 Abdomen abdominal exam Skin: presence of a scar 09/10/2013 irritation in umbilicus, foulsmelling Full Exam - General 1994 Constitutional general appearance Development: well developed 05/27/2013 None Full Exam - General 1994 Constitutional general appearance Development: appears stated age 0105/27/2013 None Full Exam - General 1994 Constitutional general appearance Development: appears older than stated age 0105/27/2013 None Full Exam - General 1994 Constitutional general appearance Overall: well developed 05/27/2013 None Full Exam - General 1994 Constitutional general appearance Overall: in no acute distress 05/27/2013 None Full Exam - General 1994 Constitutional general appearance Overall: well nourished 05/27/2013 None Full Exam - General 1994 Constitutional general appearance Hygiene/Attention to Grooming: good hygiene 05/27/2013 None Full Exam - General 1994 Eyes conjunctiva /eyelids Overall: conjunctiva clear 05/27/2013 None Full Exam - General 1994 Eyes conjunctiva /eyelids Overall: cornea clear 05/27/2013 None Full Exam - General 1994 Eyes conjunctiva /eyelids Overall: eyelids normal 05/27/2013 None Full Exam - General 1994 Eyes pupils and irises Overall: pupils equal, round, reactive to light and accomodation 05/27/2013 None Full Exam - General 1994 Ears/Nose/Throat lips/teeth/gingiva Overall: benign lips 05/27/2013 None Full Exam - General 1994 Ears/Nose/Throat oral cavity/pharynx/larynx Overall: oral mucosa clear 05/27/2013 None Full Exam - General 1995 Ears/Nose/Throat oral cavity/pharynx/larynx Overall: oropharyngeal mucosa clear 05/27/2013 None Full Exam - General 1995 Ears/Nose/Throat oral cavity/pharynx/larynx Overall: hypopharynx benign 05/27/2013 None Full Exam - General 1994 Ears/Nose/Throat oral cavity/pharynx/larynx Overall: no masses 05/27/2013 None Full Exam - General 1994 Respiratory auscultation Overall: breath sounds clear bilaterally 05/27/2013 None Full Exam - General 1994 Respiratory respiratory effort/rhythm Overall: no retractions 05/27/2013 None Full Exam - General 1994 Respiratory respiratory effort/rhythm Overall: normal rate 05/27/2013 None Full Exam - General 1994 Cardiovascular extremities Overall: no clubbing 05/27/2013 None Full Exam - General 1994 Cardiovascular auscultation of heart Overall: regular rate 05/27/2013 None Full Exam - General 1994 Cardiovascular auscultation of heart Overall: normal heart sounds 05/27/2013 None Full Exam - General 1994 Abdomen abdominal exam Overall: no tenderness 05/27/2013 None Full Exam - General 1994 Abdomen abdominal exam Overall: normal bowel sounds 05/27/2013 None Full Exam - General 1994 Musculoskeletal digits and nails Digits: a normal exam 05/27/2013 None Full Exam - General 1994 Integument inspection of skin Overall: few scattered moles, no gross abnormalities 05/27/2013 None Full Exam - General 1994 Neurologic deep tendon reflexes Overall: deep tendon reflexes intact 05/27/2013 None Full Exam - General 1994 Neurologic cranial nerves Overall: crainial nerves 2 - 12 grossly intact 05/27/2013 None Full Exam - General 1994 Psychiatric orientation/consciousness Overall: oriented to person, place and time 05/27/2013 None Full Exam - General 1994 Psychiatric mood and affect Overall: normal mood and affect 05/27/2013 None Full Exam - General 1994 Psychiatric mood and affect Mood: happy 05/27/2013 None Full Exam - General 1994 Musculoskeletal spine, ribs and pelvis Posture: a normal exam 05/27/2013 tender to palpation over the chest wall on right and lower chest anteriorly as well as posterior right flank Full Exam - General 1994 Constitutional general appearance Overall: well nourished 03/20/2013 None Full Exam - General 1994 Constitutional general appearance Overall: well developed 03/20/2013 None Full Exam - General 1994 Constitutional general appearance Overall: in no acute distress 03/20/2013 None Full Exam - General 1994 Psychiatric mood and affect Mood: happy 03/20/2013 None Full Exam - General 1994 Eyes pupils and irises Overall: pupils equal, round, reactive to light and accomodation 03/20/2013 None Full Exam - General 1994 Psychiatric orientation/consciousness Overall: oriented to person, place and time 03/20/2013 None Full Exam - General 1994 Psychiatric mood and affect Overall: normal mood and affect 03/20/2013 None Full Exam - General 1994 Constitutional general appearance Development: appears older than stated age 1103/20/2013 None Full Exam - General 1994 Constitutional general appearance Development: appears stated age 1103/20/2013 None Full Exam - General 1995 Constitutional general appearance Development: well developed 03/20/2013 None Full Exam - General 1994 Constitutional general appearance Hygiene/Attention to Grooming: good hygiene 03/20/2013 None Full Exam - General 1995 Eyes conjunctiva /eyelids Overall: conjunctiva clear 03/20/2013 None Full Exam - General 1994 Eyes conjunctiva /eyelids Overall: cornea clear 03/20/2013 None Full Exam - General 1994 Eyes conjunctiva /eyelids Overall: eyelids normal 03/20/2013 None Full Exam - General 1995 Ears/Nose/Throat otoscopic exam Overall: external auditory canals clear 03/20/2013 None Full Exam - General 1994 Ears/Nose/Throat otoscopic exam Overall: tympanic membranes clear 03/20/2013 None Full Exam - General 1995 Ears/Nose/Throat lips/teeth/gingiva Overall: benign lips 03/20/2013 None Full Exam - General 1995 Ears/Nose/Throat lips/teeth/gingiva Overall: normal dentition 03/20/2013 None Full Exam - General 1995 Ears/Nose/Throat oral cavity/pharynx/larynx Overall: hypopharynx benign 03/20/2013 None Full Exam - General 1995 Ears/Nose/Throat oral cavity/pharynx/larynx Overall: no masses 03/20/2013 None Full Exam - General 1995 Ears/Nose/Throat oral cavity/pharynx/larynx Overall: oral mucosa clear 03/20/2013 None Full Exam - General 1995 Ears/Nose/Throat oral cavity/pharynx/larynx Overall: oropharyngeal mucosa clear 03/20/2013 None Full Exam - General 1994 Respiratory auscultation Overall: breath sounds clear bilaterally 03/20/2013 None Full Exam - General 1994 Respiratory respiratory effort/rhythm Overall: no retractions 03/20/2013 None Full Exam - General 1994 Respiratory respiratory effort/rhythm Overall: normal rate 03/20/2013 None Full Exam - General 1994 Cardiovascular extremities Overall: no clubbing 03/20/2013 None Full Exam - General 1994 Cardiovascular auscultation of heart Overall: normal heart sounds 03/20/2013 None Full Exam - General 1994 Cardiovascular auscultation of heart Overall: regular rate 03/20/2013 None Full Exam - General 1994 Abdomen abdominal exam Overall: no tenderness 03/20/2013 None Full Exam - General 1994 Abdomen abdominal exam Overall: normal bowel sounds 03/20/2013 None Full Exam - General 1994 Integument inspection of skin Overall: few scattered moles, no gross abnormalities 03/20/2013 None Full Exam - General 1994 Neurologic deep tendon reflexes Overall: deep tendon reflexes intact 03/20/2013 None Full Exam - General 1994 Neurologic cranial nerves Overall: crainial nerves 2 - 12 grossly intact 03/20/2013 None Full Exam - General 1994 Musculoskeletal digits and nails Digits: a normal exam 03/20/2013 None Full Exam - General 1994 Musculoskeletal upper extremity Inspection - wrist: a normal exam 03/20/2013 None Full Exam - General 1994 Musculoskeletal upper extremity Inspection - wrist: nodule 03/20/2013 None Full Exam - General 1994 Musculoskeletal upper extremity Palpation - wrist: tender 03/20/2013 None Full Exam - General 1994 Musculoskeletal upper extremity Palpation - wrist: positive Tinel's test 03/20/2013 with ganglion cyst noted immediatelly below the thenar eminence, wasting of the thenar and hypothenar eminences noted Full Exam - General 1994 Musculoskeletal upper extremity Palpation - shoulder: tenderness @ subacromial space 03/20/2013 None Full Exam - General 1994 Musculoskeletal upper extremity Palpation - shoulder: tenderness @ bicipital groove 03/20/2013 None Full Exam - General 1994 Musculoskeletal upper extremity Palpation - shoulder: pain with resisted internal rotation 03/20/2013 None Full Exam - General 1994 Musculoskeletal upper extremity Palpation - shoulder: pain with resisted external rotation 03/20/2013 None Full Exam - General 1994 Musculoskeletal upper extremity ROM - shoulder: crepitus 03/20/2013 right greater than left Procedures Procedure Codes Date TRIAMCINOLONE ACET INJ NOS CPT-4: J3301 12/22/2016 DRAIN/INJECT JOINT/BURSA CPT-4: 21019 12/22/2016 TRIAMCINOLONE ACET INJ NOS CPT-4: J3301 09/07/2016 DRAIN/INJECT JOINT/BURSA CPT-4: 84999 09/07/2016 INJECT TRIGGER POINTS 3/> CPT-4: 33506 06/07/2016 THER/PROPH/DIAG INJ SC/IM CPT-4: 12432 06/07/2016 TRIAMCINOLONE ACET INJ NOS CPT-4: J3301 06/07/2016 URINALYSIS NONAUTO W/O SCOPE CPT-4: 64468 12/22/2015 KETOROLAC TROMETHAMINE INJ CPT-4: J1885 09/10/2013 THER/PROPH/DIAG INJ SC/IM CPT-4: 52582 09/10/2013 THER/PROPH/DIAG INJ SC/IM CPT-4: 05036 03/20/2013 TRIAMCINOLONE ACET INJ NOS CPT-4: J3301 03/20/2013 PRESCRIP TRANSMIT VIA ERX SY CPT-4: G8553 03/20/2013 Vital Signs Date Vital 05/17/2017 Blood Pressure 1: 130/84 Code : 8480-6 BMI: 28.3 Code : 80138-6 Heart Rate 1 : 67 bpm Height: 5'3" SpO2: 97% Weight: 160 lbs 12/22/2016 Blood Pressure 1: 134/70 Code : 8480-6 BMI: 27.6 Code : 50010-7 Heart Rate 1 : 71 bpm Height: 5'3" SpO2: 98% Weight: 156 lbs 09/07/2016 Blood Pressure 1: 158/72 Code : 8480-6 BMI: 28.0 Code : 50760-8 Heart Rate 1 : 89 bpm Height: 5'3" SpO2: 97% Weight: 158 lbs 08/15/2016 Blood Pressure 1: 136/82 Code : 8480-6 BMI: 27.3 Code : 70046-5 Heart Rate 1 : 83 bpm Height: 5'3" SpO2: 97% Weight: 154 lbs 06/30/2016 Blood Pressure 1: 136/80 Code : 8480-6 BMI: 26.0 Code : 26219-6 Heart Rate 1 : 74 bpm Height: 5'3" SpO2: 97% Weight: 147 lbs 06/07/2016 Blood Pressure 1: 138/84 Code : 8480-6 BMI: 25.7 Code : 37612-4 Heart Rate 1 : 78 bpm Height: 5'3" SpO2: 98% Weight: 145 lbs 02/25/2016 Blood Pressure 1: 122/74 Code : 8480-6 BMI: 25.2 Code : 40374-4 Heart Rate 1 : 82 bpm Height: 5'3" SpO2: 96% Weight: 142 lbs 02/03/2015 Blood Pressure 1: 158/86 Code : 8480-6 BMI: 27.6 Code : 77616-2 Heart Rate 1 : 73 bpm Height: 5'3" SpO2: 97% Weight: 156 lbs 08/25/2014 Blood Pressure 1: 122/78 Code : 8480-6 BMI: 26.9 Code : 04501-2 Heart Rate 1 : 78 bpm Height: 5'3" SpO2: 97% Weight: 152 lbs 06/11/2014 Blood Pressure 1: 128/74 Code : 8480-6 BMI: 26.2 Code : 02780-8 Heart Rate 1 : 70 bpm Height: 5'3" Weight: 148 lbs 03/04/2014 Blood Pressure 1: 120/60 Code : 8480-6 BMI: 24.6 Code : 91289-9 Heart Rate 1 : 68 bpm Height: 5'3" Weight: 139 lbs 01/27/2014 Blood Pressure 1: 138/76 Code : 8480-6 Heart Rate 1: 77 bpm SpO2: 97% 01/16/2014 Blood Pressure 1: 112/78 Code : 8480-6 BMI: 25.0 Code : 47775-5 Heart Rate 1 : 98 bpm Height: 5'3" SpO2: 98% Temperature: 36.6 (C) / 97.8 (F) Weight: 141 lbs 11/21/2013 Blood Pressure 1: 132/82 Code : 8480-6 BMI: 26.4 Code : 27584-5 Heart Rate 1 : 80 bpm Height: 5'3" Weight: 149 lbs 09/10/2013 Blood Pressure 1: 158/80 Code : 8480-6 BMI: 26.4 Code : 93118-5 Heart Rate 1 : 76 bpm Height: 5'3" Weight: 149 lbs 05/27/2013 Blood Pressure 1: 102/70 Code : 8480-6 BMI: 26.7 Code : 69408-9 Heart Rate 1 : 84 bpm Height: 5'3" Weight: 151 lbs 03/20/2013 Blood Pressure 1: 126/76 Code : 8480-6 BMI: 27.6 Code : 18873-5 Heart Rate 1 : 72 bpm Height: 5'3" Weight: 156 lbs Functional Status No Functional Status data History of Present Illness Symptom Name Status Result Effective Date Notes shoulder pain Location diffusely 05/17/2017 both arms shoulder pain Quality aching 05/17/2017 None shoulder pain Quality constant 05/17/2017 None shoulder pain Quality sharp 05/17/2017 None shoulder pain Quality stabbing 05/17/2017 None shoulder pain Onset and Resolution sudden in onset 05/17/2017 None shoulder pain Onset of Symptom 2 months ago 05/17/2017 None shoulder pain Frequency of Episodes daily 05/17/2017 None shoulder pain Exacerbating Factors exertion 05/17/2017 None shoulder pain Exacerbating Factors lifting 05/17/2017 None shoulder pain Exacerbating Factors pulling 05/17/2017 None shoulder pain Exacerbating Factors activity 05/17/2017 None shoulder pain Pertinent Findings stiffness 05/17/2017 None shoulder pain Pertinent Findings swelling 05/17/2017 None knee pain Location on the right 05/17/2017 None knee pain Quality acute 05/17/2017 None knee pain Quality tenderness 05/17/2017 None knee pain Quality sharp pain 05/17/2017 None rash Location-Major on the fingers 05/17/2017 None rash Location-Extremities on the left thumb 05/17/2017 None rash Location-Extremities on the right thumb 05/17/2017 None rash Location-Extremities on the left (_ ) finger 05/17/2017 None rash Location-Extremities on the right (_ ) finger 05/17/2017 None rash Quality acute None rash Quality flaking 05/17/2017 None rash Quality peeling 05/17/2017 None rash Quality painful 05/17/2017 None rash Quality uncomfortable 05/17/2017 None rash Triggers no known triggers 05/17/2017 None rash Pertinent Findings tenderness 05/17/2017 None shoulder pain Location deep 12/22/2016 None shoulder pain Quality aching 12/22/2016 None shoulder pain Quality constant 12/22/2016 None shoulder pain Quality sharp 12/22/2016 None shoulder pain Onset and Resolution ongoing 12/22/2016 None shoulder pain Pertinent Findings stiffness 12/22/2016 None shoulder pain Pertinent Findings swelling 12/22/2016 None shoulder pain Pertinent Findings limited range of motion 12/22/2016 None shoulder pain Location diffusely 09/07/2016 both arms shoulder pain Quality aching 09/07/2016 None shoulder pain Quality sharp 09/07/2016 None shoulder pain Quality stabbing 09/07/2016 None shoulder pain Quality constant 09/07/2016 None shoulder pain Onset and Resolution sudden in onset 09/07/2016 None shoulder pain Onset of Symptom 2 months ago 09/07/2016 None shoulder pain Frequency of Episodes daily 09/07/2016 None shoulder pain Exacerbating Factors exertion 09/07/2016 None shoulder pain Exacerbating Factors lifting 09/07/2016 None shoulder pain Exacerbating Factors pulling 09/07/2016 None shoulder pain Exacerbating Factors activity 09/07/2016 None shoulder pain Pertinent Findings stiffness 09/07/2016 None shoulder pain Pertinent Findings swelling 09/07/2016 None skin lesion Onset and Resolution sudden in onset 08/15/2016 None skin lesion Onset of Symptom 2 months ago 08/15/2016 None skin lesion Location right lower leg 08/15/2016 None skin lesion Quality firm 08/15/2016 None skin lesion Quality raised 08/15/2016 None skin lesion Quality red 08/15/2016 None back pain Location thoracic spine 06/30/2016 None back pain Quality aching

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
[2017-05-23] MEDS ORDERED: NS IV 1000 ML 1,000 ML IV ONE (00:53)
[2017-05-23 01:07] LABS: BILIRUBIN,URINE NEGATIVE (NEGATIVE); CLARITY,URINE VERY CLOUDY; COLOR,URINE YELLOW; GLUCOSE, URINE (UA) NEGATIVE (NEGATIVE); KETONES,URINE 1+ (NEGATIVE); LEUKOCYTE ESTERASE ,URINE 3+ (NEGATIVE); NITRITE,URINE NEGATIVE (NEGATIVE); PH,URINE 5 (5-9); PROTEIN,URINE 2+ (NEGATIVE); UROBILINOGEN,URINE 1 MG/DL (NORMAL)
[2017-05-23 01:09] LABS: BACTERIA,URINE FEW /HPF; WBC,URINE >100 /HPF
[2017-05-23 01:10] LABS: AMORPHOUS SEDIMENT,UR LARGE AMOR URATES /LPF; CALCIUM OXALATE CRYSTALS,UR MODERATE /LPF
[2017-05-23 01:30] LABS: HEMATOCRIT 45 % (35-52); HEMOGLOBIN 13.8 G/DL (11.5-16.0); MEAN CORPUSCULAR HEMOGLOBIN 29 PG (25-34); MEAN CORPUSCULAR HGB CONC 31 G/DL (32-36); MEAN CORPUSCULAR VOLUME 96 FL (80-99); MEAN PLATELET VOLUME 10.2 FL (7.4-10.4); NEUTROPHILS % (AUTO) 85 % (42-75); PLATELET COUNT 244 10^3/uL (130-400); RED BLOOD COUNT 4.71 10^6/uL (4.35-5.85); RED CELL DISTRIBUTION WIDTH 14.1 % (10.0-14.5); WHITE BLOOD COUNT 11.2 10^3/uL (4.3-11.0)
[2017-05-23 01:31] LABS: BASOPHILS % (AUTO) 0 % (0-10); EOSINOPHILS # (AUTO) 0.1 10^3/uL (0.0-0.3); EOSINOPHILS % (AUTO) 1 % (0-10); LYMPHOCYTES % (AUTO) 9 % (12-44); MONOCYTES # (AUTO) 0.5 X 10^3 (0.0-1.0); MONOCYTES % (AUTO) 5 % (0-12); NEUTROPHILS # (AUTO) 9.6 X 10^3 (1.8-7.8)
[2017-05-23 01:39] LABS: PROTHROMBIN TIME PATIENT 12.8 SEC (12.2-14.7)
--- NOTE | 2017-05-23 01:44 | ED GU-Female ---
General Chief Complaint: Abdominal/GI Problems Stated Complaint: RT SIDE ABD PAIN Nursing Triage Note: PT REPORTS RUQ ABDOMINAL PAIN STARTING AT 1900 TODAY. PT REPORTS N/V/D. Nursing Sepsis Screen: No Definite Risk Source: patient Exam Limitations: no limitations History of Present Illness Date Seen by Provider: May 23, 2017 Time Seen by Provider: 01:20 Initial Comments Here with report of right upper quadrant and right flank pain. Actually reports it's more the right flank. Also notes frequency of urination and incontinence rapid onset of needing to urinate. Denies diarrhea. States this is been going on for a few days but getting worse. She has been trying to drink plenty of fluids but she is not eating very well. Timing/Duration: yesterday, getting worse Severity/Quality: moderate, aching Location: right flank Activities at Onset: none Modifying Factors: Improves With Urinating Associated Symptoms: abdominal pain, dysuria, No fever/chills, No lower back pain, No nausea/vomiting, urinary frequency Allergies and Home Medications Allergies Coded Allergies: Sulfa (Sulfonamide Antibiotics) (Verified Allergy, Unknown, 07/08/09) oxytetracycline (Verified Allergy, Unknown, 07/08/09) penicillin G (Verified Allergy, Unknown, 07/08/09) Home Medications Cholecalciferol 5,000 Unit Capsule, 5,000 UNIT PO DAILY, (Reported) Ciprofloxacin HCl 500 Mg Tablet, 500 MG PO Q12H, #10 Ref 0 Prescribed by: ALYSON TAYLOR on 06/25/15 0947 Cyanocobalamin (Vitamin B-12) 2,500 Mcg Tablet, 2,500 MCG PO DAILY, (Reported) Hydrocodone/Acetaminophen 1 Each Tablet, 1 EACH PO Q4H PRN for ABDOMINAL PAIN, # 30 Prescribed by: ALYSON TAYLOR on 06/25/15 0948 Multivitamin/Iron/Folic Acid 1 Each Tablet, 1 TAB PO DAILY, (Reported) Potassium Gluconate 99 Mg Tablet, 99 MG PO DAILY, (Reported) Simvastatin 20 Mg Tablet, 20 MG PO DAILY, (Reported) Thyroid,Pork 16.25 Mg Tablet, 16.25 MG PO DAILY, (Reported) Vitamin E (Dl,Tocopheryl Acet) 200 Unit Capsule, 200 UNIT PO DAILY, (Reported) Constitutional: see HPI, No chills, No fever EENTM: no symptoms reported Respiratory: no symptoms reported Cardiovascular: no symptoms reported Gastrointestinal: see HPI, abdominal pain, No nausea, No vomiting Genitourinary: frequency, pain Musculoskeletal: no symptoms reported Skin: no symptoms reported All Other Systemes Reviewed Negative Unless Noted: Yes Past Kgbxjtj-Jbeepe-Exmgav Hx Patient Social History Alcohol Use: Denies Use Recreational Drug Use: No Smoking Status: Never a Smoker 2nd Hand Smoke Exposure: No Recent Foreign Travel: No Contact w/Someone Who Travel: No Recent Infectious Disease Expo: No Recent Hopitalizations: Yes Immunizations Up To Date Tetanus Booster (TDap): Less than 5yrs Seasonal Allergies Seasonal Allergies: No Surgeries History of Surgeries: Yes (RIGHT KNEE ARTH. HIATAL HERNIA REPAIR, BLADDER TIE UP X2, COLON RESECTION) Surgeries: Abdominal, Adenoidectomy, Bladder Surgery, Gallbladder, Hysterectomy , Orthopedic, Tonsillectomy Respiratory History of Respiratory Disorde: No (ASTHMA A CHILD) Cardiovascular History of Cardiac Disorders: No Cardiac Disorders: High Cholesterol Neurological History of Neurological Disord: No Reproductive System Hx Reproductive Disorders: No Sexually Transmitted Disease: No HIV/AIDS: No Genitourinary History of Genitourinary Disor: Yes Genitourinary Disorders: UTI-Chronic Gastrointestinal History of Gastrointestinal Di: Yes (ULCERS, HX OF COLON RESECTION) Gastrointestinal Disorders: Gastroesophageal Reflux, Hiatal Hernia, Ulcer Musculoskeletal History of Musculoskeletal Dis: Yes Musculoskeletal Disorders: Arthritis Endocrine History of Endocrine Disorders: No HEENT Loss of Vision: Denies Hearing Impairment: Denies Cancer History of Cancer: Yes Cancer: Skin Psychosocial History of Psychiatric Problem: No Integumentary History of Skin or Integumenta: Yes (SKIN CANCER) Blood Transfusions History of Blood Disorders: No Family Medical History Family Medial History: Cancer 03 MOTHER (ALL OVER) Cancer of colon 03 MOTHER Family history: Arthritis 03 FATHER 03 MOTHER Family history: Cardiovascular disease 03 FATHER 09 SISTER Family history: Diabetes mellitus 03 FATHER Family history: Gastrointestinal disease 03 FATHER 03 MOTHER Family history: Hypertension 03 FATHER 09 SISTER Myocardial infarction 03 FATHER No Family History of: Abdominal aortic aneurysm Alcoholism Congenital heart disease Congestive heart failure Family history: Alzheimer's disease Family history: Asthma Family history: Breast disease Family history: Thyroid disorder Hereditary disease History of - respiratory disease Kidney disease Prostate cancer Psychotic disorder Seizure disorder Stroke Physical Exam Vital Signs Vital Sign - Last 12Hours 05/23/17 00:25 Temp 98.4 Pulse 79 Resp 18 B/P (MAP) 131/71 (91) Pulse Ox 94 Capillary Refill : Less Than 3 Seconds General Appearance: WD/WN, no apparent distress HEENT: PERRL/EOMI, pharynx normal Neck: full range of motion, supple Cardiovascular: regular rate, rhythm, no murmur Respiratory: lungs clear, normal breath sounds Gastrointestinal: normal bowel sounds, soft, No guarding, No rebound, tenderness (mild suprapubic and right-sided) Back: normal inspection, no vertebral tenderness, CVA tenderness (R), No CVA tenderness (L) Extremities: normal range of motion, non-tender Neurologic/Psychiatric: alert, oriented x 3 Skin: normal color, warm/dry Focused Exam Evaluation Lactate Level Laboratory Tests 05/23/17 01:10: Lactic Acid Level 0.88 Lactic Acid Level Laboratory Tests Test 05/23/17 01:10 Lactic Acid Level 0.88 MMOL/L (0.50-2.00) Progress/Results/Core Measures Suspected Sepsis Recent Fever Within 48 Hours: No Infection Criteria Present: None New/Unexplained Altered Menta: No Sepsis Screen: No Definite Risk Sepsis Diagnosis: SIRS Temperature:98.4 Pulse: 79 Respiratory Rate: 18 Laboratory Tests 05/23/17 01:10: White Blood Count 11.2H Blood Pressure 131 /71 Mean: 91 Laboratory Tests 05/23/17 01:10: Lactic Acid Level 0.88 Laboratory Tests 05/23/17 01:10: Creatinine 0.79, INR Comment 1.0, Platelet Count 244, Total Bilirubin 0.4 Results/Orders Lab Results Laboratory Tests Test 05/23/17 00:45 05/23/17 01:10 Range/Units Urine Color YELLOW Urine Clarity VERY CLOUDY H Urine pH 5 5-9 Urine Specific [place] 1.030 H 1.016-1.022 Urine Protein 2+ H NEGATIVE Urine Glucose (UA) NEGATIVE NEGATIVE Urine Ketones 1+ H NEGATIVE Urine Nitrite NEGATIVE NEGATIVE Urine Bilirubin NEGATIVE NEGATIVE Urine Urobilinogen 1 NORMAL MG/DL Urine Leukocyte Esterase 3+ H NEGATIVE Urine RBC (Auto) 2+ H NEGATIVE Urine RBC 10-25 H /HPF Urine WBC >100 H /HPF Urine Crystals PRESENT H /LPF Urine Calcium Oxalate Crystals MODERATE H /LPF Urine Amorphous Sediment LARGE JASON URATES H /LPF Urine Bacteria FEW H /HPF Urine Casts NONE /LPF Urine Mucus NEGATIVE /LPF Urine Culture Indicated YES White Blood Count 11.2 H 4.3-11.0 10^3/uL Red Blood Count 4.71 4.35-5.85 10^6/uL Hemoglobin 13.8 11.5-16.0 G/DL Hematocrit 45 35-52 % Mean Corpuscular Volume 96 80-99 FL Mean Corpuscular Hemoglobin 29 25-34 PG Mean Corpuscular Hemoglobin Concent 31 L 32-36 G/DL Red Cell Distribution Width 14.1 10.0-14.5 % Platelet Count 244 130-400 10^3/uL Mean Platelet Volume 10.2 7.4-10.4 FL Neutrophils (%) (Auto) 85 H 42-75 % Lymphocytes (%) (Auto) 9 L 12-44 % Monocytes (%) (Auto) 5 0-12 % Eosinophils (%) (Auto) 1 0-10 % Basophils (%) (Auto) 0 0-10 % Neutrophils # (Auto) 9.6 H 1.8-7.8 X 10^3 Lymphocytes # (Auto) 1.0 1.0-4.0 X 10^3 Monocytes # (Auto) 0.5 0.0-1.0 X 10^3 Eosinophils # (Auto) 0.1 0.0-0.3 10^3/uL Basophils # (Auto) 0.0 0.0-0.1 10^3/uL Prothrombin Time 12.8 12.2-14.7 SEC INR Comment 1.0 0.8-1.4 Activated Partial Thromboplast Time 32 24-35 SEC Sodium Level 142 135-145 MMOL/L Potassium Level 3.8 3.6-5.0 MMOL/L Chloride Level 109 H 98-107 MMOL/L Carbon Dioxide Level 21 21-32 MMOL/L Anion Gap 12 5-14 MMOL/L Blood Urea Nitrogen 17 7-18 MG/DL Creatinine 0.79 0.60-1.30 MG/DL Estimat Glomerular Filtration Rate > 60 BUN/Creatinine Ratio 22 Glucose Level 156 H 70-105 MG/DL Lactic Acid Level 0.88 0.50-2.00 MMOL/L Calcium Level 9.2 8.5-10.1 MG/DL Total Bilirubin 0.4 0.1-1.0 MG/DL Aspartate Amino Transf (AST/SGOT) 27 5-34 U/L Alanine Aminotransferase (ALT/SGPT) 23 0-55 U/L Alkaline Phosphatase 90 40-136 U/L Total Protein 6.8 6.4-8.2 GM/DL Albumin 4.0 3.2-4.5 GM/DL My Orders Orders - ELIA PRASAD MD Cbc With Automated Diff (05/23/17 00:53) Comprehensive Metabolic Panel (05/23/17 00:53) Lactic Acid Analyzer (05/23/17 00:53) Blood Culture (05/23/17 00:53) Sputum Culture (05/23/17 00:53) Ua Culture If Indicated (05/23/17 00:53) Protime With Inr (05/23/17 00:53) Partial Thromboplastin Time (05/23/17 00:53) Chest 1 View, Ap/Pa Only (05/23/17 00:53) O2 (05/23/17 00:53) Saline Lock/Iv-Start (05/23/17 00:53) Vital Signs Adult Sepsis Patie Q1H (05/23/17 00:53) Remove Rings In Anticipation O (05/23/17 00:53) Ns Iv 1000 Ml (Sodium Chloride 0.9%) (05/23/17 00:53) Urine Culture (05/23/17 00:45) Ceftriaxone Injection (Rocephin Injectio (05/23/17 02:00) Ct Abdomen/Pelvis W (05/23/17 02:04) Iohexol Injection (Omnipaque 350 Mg/Ml 1 (05/23/17 02:15) Ns (Ivpb) (Sodium Chloride 0.9% Ivpb Bag (05/23/17 02:15) Medications Given in ED Current Medications Medications Dose Ordered Sig/Ady Route Start Time Stop Time Status Last Admin Dose Admin Ceftriaxone Sodium 1000 mg/ Dextrose/Water 50 ml @ 100 mls/hr ONCE ONCE IV 05/23/17 02:00 05/23/17 02:29 DC 05/23/17 02:10 100 MLS/HR Iohexol 100 ml ONCE ONCE IV 05/23/17 02:15 05/23/17 02:16 DC 05/23/17 02:58 100 ML Sodium Chloride 80 ml ONCE ONCE IV 05/23/17 02:15 05/23/17 02:16 DC 05/23/17 02:58 80 ML Sodium Chloride 1,000 ml @ 0 mls/hr Q0M ONCE IV 05/23/17 00:53 05/23/17 00:54 DC 05/23/17 01:06 0 MLS/HR Vital Signs/I&O Vital Sign - Last 12Hours 05/23/17 00:25 Temp 98.4 Pulse 79 Resp 18 B/P (MAP) 131/71 (91) Pulse Ox 94 Capillary Refill : Less Than 3 Seconds Blood Pressure Mean: 91 Progress Note : Progress Note Seen and evaluated. IV, labs, chest x-ray, normal saline 1 L bolus, blood cultures and lactic acid ordered. UA ordered. Monitor patient. UTI noted. Rocephin 1 g IV. We will get CT abdomen and pelvis do to history of recurrent colon tumors. Monitor patient. 0420: CT results noted. Question partial small bowel obstruction. In talking with the patient, she states her pain is improved currently and she is still passing gas and had bowel movement after arrival here. Findings may be related to previous surgery and/or current bladder infection. She would like to go home. We will try outpatient therapy for the urinary tract infection with clear liquid diet and having her follow up with her primary care doctor. She would prefer this that it's reasonable to try. Discharged home with return precautions. Patient verbalize understanding instructions and agreement with plan. Diagnostic Imaging Diagonstic Imaging: CT Plain Films/CT/US/NM/MRI: abdomen, pelvis Comments Partial small bowel obstruction. Reviewed: Reviewed [place] Study, Reviewed by Me Departure Impression Impression: Primary Impression: UTI (urinary tract infection) Qualified Codes: N30.00 - Acute cystitis without hematuria Additional Impression: Right sided abdominal pain Disposition: HOME, SELF-CARE Condition: Improved Departure-Patient Inst. Decision time for Depature: 04:26 Referrals: HINA DICKENS MD (PCP/Family) Primary Care Physician Patient Instructions: Urinary Tract Infection, Adult (DC), Acute Abdomen ( Belly Pain), Adult (DC) Add. Discharge Instructions: All discharge instructions reviewed with patient and/or family. Voiced understanding. Take medications as directed. Follow-up with your doctor this week for recheck and further evaluation. Clear liquid diet for 24 hours and then advance as tolerated. Return for worse pain, fever, vomiting, weakness, rhythm problems or other concerns as needed. Scripts Cephalexin (Cephalexin) 500 Mg Tablet 500 MG PO BID, #14 TAB 0 Refills Prov: ELIA PRASAD MD 05/23/17 Copy Copies To 1: HINA DICKENS MD, TIMOTHY D MD May 23, 2017 01:44
[2017-05-23 01:49] LABS: ALANINE AMINOTRANSFERASE 23 U/L (0-55); ALKALINE PHOSPHATASE 90 U/L (40-136); BILIRUBIN,TOTAL 0.4 MG/DL (0.1-1.0); BUN/CREATININE RATIO 22; CALCIUM 9.2 MG/DL (8.5-10.1); CARBON DIOXIDE 21 MMOL/L (21-32); CHLORIDE 109 MMOL/L (98-107); CREATININE SERUM 0.79 MG/DL (0.60-1.30); GFR ESTIMATED > 60; GLUCOSE 156 MG/DL (70-105); POTASSIUM 3.8 MMOL/L (3.6-5.0); SODIUM 142 MMOL/L (135-145); TOTAL PROTEIN 6.8 GM/DL (6.4-8.2)
[2017-05-23] MEDS ORDERED: cefTRIAXone INJECTION 1,000 MG in D5W 50 ML IVPB SOLUTION 50 ML IV ONE (02:00)
[2017-05-23] MEDS ORDERED: IOHEXOL 350 MG/ML 100 ML (OMNIPAQUE 350) VIAL IV ONE (02:15)
[2017-05-23] MEDS ORDERED: NS 100 ML (IVPB) BAG IV ONE (02:15)
[2017-05-23] MEDS ORDERED: CEPH500T PO (04:28)
[2017-05-23 04:37] VITALS: BP 131/71
--- NOTE | 2017-05-23 08:11 | Diagnostic Imaging Report ---
INDICATION: Right-sided abdominal pain for one day. Time of exam: 1:21 AM Comparison is made prior study from 04/13/2015. Heart size is stable. Lungs are clear. No infiltrates are detected. No effusion or pneumothorax is seen. There is a calcified granuloma in the right upper lobe. IMPRESSION: Stable chest. No acute cardiopulmonary process is detected. Dictated by: Dictated on workstation # [id number]
--- NOTE | 2017-05-23 08:41 | Diagnostic Imaging Report ---
PROCEDURE: CT abdomen and pelvis with contrast. TECHNIQUE: Multiple contiguous axial images were obtained through the abdomen and pelvis after administration of intravenous contrast. INDICATION: Right lower quadrant abdominal pain 2 days. History of multiple prior abdominal surgeries. Correlation study: 06/16/2016 FINDINGS: Small right lower lobe bulla formation. No basilar infiltrate. Heart size is normal. Mild wall thickening low esophagus. Liver slightly low-attenuation may reflect mild fatty infiltration without focal lesion. Gallbladder is absent with clips in the fossa. Spleen with a few calcified granulomas. Pancreas and adrenal glands are unremarkable. Abdominal aorta normal in contour with major vessels patent. Kidneys normal in enhancement. No obstruction. Stomach is relatively collapsed. Small bowel demonstrates area of moderate dilatation with air-fluid levels particularly right and left lower quadrants. Surgical changes noted with anastomotic sutures in the left lower quadrant. Colon diverticulosis without definitive evidence for acute diverticulitis. Small amount of perihepatic as well as pelvic fluid. No abscess. Appendix not identified. Urinary bladder is unremarkable. Uterus is absent. Osseous structures demonstrate no acute findings. Leftward curvature noted. IMPRESSION: 1. Findings compatible with likely high degree partial small bowel obstruction. Abdominal and pelvic fluid without evidence for abscess formation. Rather extensive colonic diverticulosis without definitive evidence for diverticulitis. A preliminary report was provided by [email or web address]. Dictated by: Dictated on workstation # [id number]
== END 2017-05-23 04:38 | disposition home or self-care (01) ==
LOC: EDUNIT# 23:25 → ER 23:29
DX: N39.0 Urinary tract infection, site not specified (principal); J45.909 Unspecified asthma, uncomplicated; E78.00 Pure hypercholesterolemia, unspecified; K21.9 Gastro-esophageal reflux disease without esophagitis; Z85.828 Personal history of other malignant neoplasm of skin; Z87.19 Personal history of other diseases of the digestive system; Z90.710 Acquired absence of both cervix and uterus; Z90.49 Acquired absence of other specified parts of digestive tract; Z82.49 Family history of ischemic heart disease and other diseases of the circulatory system; Z80.0 Family history of malignant neoplasm of digestive organs
CPT/HCPCS: 36415; 71045; 74177; 80053; 81000; 83605; 85025; 85610; 85730; 87040; 87088; 87186; 96361; 96365

== ENCOUNTER → 2017-10-20 | Outpatient (CLI) | payer MEDICARE, OTHER ==
[~2017-10-20] MED LIST changes: +CEPH500T PO
--- NOTE | 2017-10-20 13:50 | Diagnostic Imaging Report ---
INDICATION: Left wrist pain. FINDINGS: Three views of the left wrist show narrowing of the radiocarpal joint consistent with chronic degenerative change. There is widening of the scapholunate joint space with the capitate wedged between the scaphoid and lunate. 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 There is joint space narrowing of the radiocarpal joint on the scaphoid side of the joint. Dictated by: Dictated on workstation # [id number]
--- NOTE | 2017-10-20 13:53 | Diagnostic Imaging Report ---
INDICATION: Left hand pain FINDINGS: Three views of the left hand show no fracture, dislocation or other acute abnormalities. There is some joint space narrowing of the interphalangeal joints of the fingers. IMPRESSION: Osteoarthritis with mild joint space narrowing of the interphalangeal joints of the fingers. Dictated by: Dictated on workstation # [id number]
== END ==
LOC: RAD 13:21
PROVIDERS: ATTEND Nurse Practitioner Family
DX: S69.82XA Other specified injuries of left wrist, hand and finger(s), initial encounter (principal); M19.042 Primary osteoarthritis, left hand
CPT/HCPCS: 73110; 73130

== ENCOUNTER → 2018-06-04 | Outpatient (CLI) | payer MEDICARE, OTHER ==
--- NOTE | 2018-06-04 14:20 | Diagnostic Imaging Report ---
Indication: Routine screening. Comparison is made prior mammogram from 11/16/2016 and 10/14/2015. 2-D and 3-D bilateral screening mammography was performed with CAD. Scattered fibroglandular densities are identified bilaterally. Parenchymal density appears to be stable. There is a small density in the outer right breast mid depth appearing more prominent than prior studies, additional views are recommended. Left breast appears stable. No suspicious calcifications are seen. Axillae are unremarkable. Impression: BI-RADS 0 Right breast density. Additional views including spot compression and rolled CC views are recommended for further evaluation. Dictated by: Dictated on workstation # [id number]
== END ==
LOC: RAD 10:19
PROVIDERS: ATTEND Nurse Practitioner Family
DX: Z12.31 Encounter for screening mammogram for malignant neoplasm of breast (principal); R92.8 Other abnormal and inconclusive findings on diagnostic imaging of breast
CPT/HCPCS: 77067

== ENCOUNTER → 2018-06-04 | Outpatient (CLI) | payer MEDICARE, OTHER ==
[~2018-06-04] MED LIST changes: +BARIUM SUSPENSION 2.1% (VANILLA SILQ) 450 ML PO ONE; +CATHETER FLUSH 10 ML SYR IV PRN; +IOHEXOL 350 MG/ML 100 ML (OMNIPAQUE 350) VIAL IV ONE; +NS 100 ML (IVPB) BAG IV ONE; +RECEIVED CONTRAST (Hold Metformin) IV SCH
--- NOTE | 2018-06-04 10:58 | Diagnostic Imaging Report ---
PROCEDURE: CT abdomen and pelvis with and without contrast. TECHNIQUE: Precontrast acquisitions were acquired through the abdomen and pelvis. Multiple contiguous axial images were obtained through the abdomen and pelvis after the administration of intravenous contrast. DATE: June 04, 2018. COMPARISON: CT abdomen and pelvis May 23, 2017. INDICATION: 73-year-old female, history of desmoid tumor of the abdomen. FINDINGS: The visualized portions of the lung bases are clear. The heart is not enlarged. There is no identified pericardial effusion. The liver is normal in size and contour. There is no identified liver lesion. The main, right, and left portal veins are patent. The patient is status post cholecystectomy. There is no identified intrahepatic or extrahepatic bile duct dilation. The main pancreatic duct is not abnormally dilated. Unremarkable appearance of the pancreatic parenchyma. The spleen is normal in size. There are splenic calcifications most likely relating to sequela of prior granulomatous disease. The adrenal glands are unremarkable. Unremarkable appearance of the renal parenchyma. The urinary collecting systems are not distended. There is no identified renal or ureteral stone. There is a very small amount of gas within the urinary bladder which may relate to recent catheterization. The urinary bladder is otherwise unremarkable in appearance. There is diverticulosis without evidence of acute diverticulitis. The intestinal tract is not distended. There are no findings to suggest acute appendicitis. There are surgical clips within the right anterior and upper abdomen. There are also surgical clips in the central mesentery and associated with small bowel. There is no free intraperitoneal air, drainable fluid collection, or free pelvic fluid. There is no identified mesenteric mass. There are atherosclerotic calcifications. There is a left external iliac calcification on axial image 73 which may relate to a calcified lymph node. There is no identified abnormally enlarged lymph node in the abdomen or pelvis which is specifically meeting CT size criteria for adenopathy. There are multilevel degenerative changes of the spine. There is a T8 benign vertebral body hemangioma. There is no identified acute bony abnormality. IMPRESSION: CT ABDOMEN AND PELVIS. 1. No residual or recurrent mass within the abdomen raising concern for active malignancy. 2. Unchanged partially calcified left external iliac chain lymph node. No lymph node in the abdomen or pelvis which meets CT size criteria for adenopathy. Dictated by: Dictated on workstation # [id number]
== END ==
LOC: RAD 10:17
PROVIDERS: ATTEND Internal Medicine Hematology & Oncology
DX: D48.7 Neoplasm of uncertain behavior of other specified sites (principal)
CPT/HCPCS: 74178

== ENCOUNTER 2018-06-11 08:33 | Outpatient (RCR) | payer MEDICARE, OTHER ==
[2018-06-01 12:57] LABS: BASOPHILS % (AUTO) 0 % (0-10); EOSINOPHILS # (AUTO) 0.2 10^3/uL (0.0-0.3); EOSINOPHILS % (AUTO) 3 % (0-10); HEMATOCRIT 44 % (35-52); HEMOGLOBIN 14.5 G/DL (11.5-16.0); LYMPHOCYTES # (AUTO) 2.1 X 10^3 (1.0-4.0); LYMPHOCYTES % (AUTO) 31 % (12-44); MEAN CORPUSCULAR HEMOGLOBIN 30 PG (25-34); MEAN CORPUSCULAR HGB CONC 33 G/DL (32-36); MEAN CORPUSCULAR VOLUME 90 FL (80-99); MEAN PLATELET VOLUME 9.5 FL (7.4-10.4); MONOCYTES # (AUTO) 0.5 X 10^3 (0.0-1.0); MONOCYTES % (AUTO) 7 % (0-12); NEUTROPHILS % (AUTO) 59 % (42-75); PLATELET COUNT 278 10^3/uL (130-400); RED CELL DISTRIBUTION WIDTH 14.5 % (10.0-14.5); WHITE BLOOD COUNT 6.8 10^3/uL (4.3-11.0)
[2018-06-01 13:19] LABS: ALANINE AMINOTRANSFERASE 30 U/L (0-55); ALBUMIN 4.3 GM/DL (3.2-4.5); ALKALINE PHOSPHATASE 94 U/L (40-136); BILIRUBIN,TOTAL 0.5 MG/DL (0.1-1.0); BUN/CREATININE RATIO 26; CALCIUM 9.8 MG/DL (8.5-10.1); CARBON DIOXIDE 22 MMOL/L (21-32); CHLORIDE 108 MMOL/L (98-107); CREATININE SERUM 0.89 MG/DL (0.60-1.30); GFR ESTIMATED > 60; GLUCOSE 97 MG/DL (70-105); POTASSIUM 4.5 MMOL/L (3.6-5.0); SODIUM 142 MMOL/L (135-145); TOTAL PROTEIN 7.1 GM/DL (6.4-8.2)
[~2018-06-11 08:33] MED LIST changes: -BARIUM SUSPENSION 2.1% (VANILLA SILQ) 450 ML PO ONE; -CATHETER FLUSH 10 ML SYR IV PRN; -IOHEXOL 350 MG/ML 100 ML (OMNIPAQUE 350) VIAL IV ONE; -NS 100 ML (IVPB) BAG IV ONE; -RECEIVED CONTRAST (Hold Metformin) IV SCH
== END 2018-08-30 | disposition home or self-care (01) ==
LOC: ONC 08:33
PROVIDERS: ATTEND Internal Medicine Hematology & Oncology
DX: D48.7 Neoplasm of uncertain behavior of other specified sites (principal); E78.5 Hyperlipidemia, unspecified; K27.7 Chronic peptic ulcer, site unspecified, without hemorrhage or perforation; Z86.39 Personal history of other endocrine, nutritional and metabolic disease; Z80.8 Family history of malignant neoplasm of other organs or systems; Z79.899 Other long term (current) drug therapy
CPT/HCPCS: 80053; 84443; 85025; 99213

== ENCOUNTER → 2018-06-13 | Outpatient (CLI) | payer MEDICARE, OTHER ==
--- NOTE | 2018-06-13 20:14 | Diagnostic Imaging Report ---
INDICATION: Right breast density. Patient presents for additional views. COMPARISON: Correlation is made with recent screening study from 06/04/2018. EXAMINATION: Unilateral right 2D and 3D diagnostic mammography was performed including spot compression CC, rolled CC and 90 degree lateral views. FINDINGS: The area of density in the outer right breast on the CC view appears to resolve with additional views. This most likely represented superimposed tissue. No mass or suspicious calcifications are seen. IMPRESSION: BI-RADS 1. Additional views fail to demonstrate a discrete mass. The patient may return to routine annual screening mammography. ACR BI-RADS Category 1: Negative. Result letter will be mailed to the patient. Note: At least 10% of breast cancer is not imaged by mammography. Dictated by: Dictated on workstation # [id number]
== END ==
LOC: RAD 12:38
PROVIDERS: ATTEND Family Medicine
DX: R92.2 Inconclusive mammogram (principal)

== ENCOUNTER → 2018-07-24 | Outpatient (CLI) | payer MEDICARE, OTHER ==
--- NOTE | 2018-07-24 12:30 | Diagnostic Imaging Report ---
INDICATION: Back pain. COMPARISON: 06/23/2016 FINDINGS: Frontal and lateral views of the thoracic spine were obtained. Visualization of the upper thoracic spine is limited on the lateral projection. Alignment and vertebral heights are maintained. There is no fracture or destructive process. There are no large paraspinal masses. There is S-shaped scoliotic deformity of the thoracolumbar spine. Mild multilevel degenerative changes are also noted. Limited views of the lungs are clear. IMPRESSION: 1. No acute fracture or dislocation of the thoracic spine. 2. S Shaped scoliotic deformity with mild multilevel degenerative changes. Dictated by: Dictated on workstation # [id number]
== END ==
LOC: RAD 11:49
PROVIDERS: ATTEND Nurse Practitioner Family
DX: M47.814 Spondylosis without myelopathy or radiculopathy, thoracic region (principal); M41.84 Other forms of scoliosis, thoracic region
CPT/HCPCS: 72072

== ENCOUNTER 2018-08-01 09:48 | Outpatient (RCR) | payer OTHER | END 2018-08-01 12:21 | disposition home or self-care (01) | PROVIDERS: ATTEND Orthopaedic Surgery Sports Medicine | DX: M17.11 Unilateral primary osteoarthritis, right knee (principal) ==

== ENCOUNTER → 2018-09-10 | Outpatient (CLI) | payer MEDICARE, OTHER ==
--- NOTE | 2018-09-10 15:04 | Diagnostic Imaging Report ---
INDICATION: Fall and ulnar-sided pain. Time of exam 1:05 p.m. Three views of the left wrist were obtained. FINDINGS: There is significant chronic changes of the carpus. There is sclerosis and volume loss of the navicular consistent with prior history of osteonecrosis. There appears to be remodeling of the distal radius at the radiocarpal joint. Significant widening of the scapholunate space is identified with proximal migration of the capitate. This is consistent with a SLAC wrist. Benign calcification adjacent to the ulnar styloid is noted. No fractures are seen. Metacarpals are intact. IMPRESSION: Chronic carpal findings, as described. There are findings of osteonecrosis with volume loss of the scaphoid. 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 No acute bony abnormality is detected. Dictated by: Dictated on workstation # [id number]
== END ==
LOC: RAD 12:58
PROVIDERS: ATTEND Nurse Practitioner Family
DX: M87.9 Osteonecrosis, unspecified (principal); M19.032 Primary osteoarthritis, left wrist; W19.XXXA Unspecified fall, initial encounter
CPT/HCPCS: 73110

== ENCOUNTER → 2019-01-02 | Outpatient (CLI) | payer MEDICARE, OTHER ==
--- NOTE | 2019-01-02 12:48 | Diagnostic Imaging Report ---
INDICATION: Fall, complaining of buttock pain and back pain. TIME OF EXAM: 10:53 a.m. Three views of the lumbar spine were obtained. FINDINGS: There is normal lumbar lordotic curvature. Minimal anterolisthesis of L4 on L5 is noted. Vertebral body heights are well maintained. There appears to be a chronic superior endplate fracture involving the L2 vertebral body, similar to examination from 06/23/2016. Generalized degenerative disc disease is seen with variable disc space narrowing and marginal spurring. There is lower lumbar facet arthropathy noted. Multiple surgical clips in the right and left abdomen are noted. IMPRESSION: Lumbar spondylosis and chronic changes. No acute bony abnormality is detected. Dictated by: Dictated on workstation # [id number]
--- NOTE | 2019-01-02 12:49 | Diagnostic Imaging Report ---
Indication: Fall with buttock pain. Time of exam 10:53 AM Sacrococcygeal alignment appears normal. No fracture is seen. Sacral arcuate lines are intact. SI joints and symphysis are not widened. Impression: No acute bony abnormality is detected. Dictated by: Dictated on workstation # [id number]
== END ==
LOC: RAD 10:41
PROVIDERS: ATTEND Nurse Practitioner Family
DX: Z04.3 Encounter for examination and observation following other accident (principal); M47.816 Spondylosis without myelopathy or radiculopathy, lumbar region; M25.559 Pain in unspecified hip
CPT/HCPCS: 72100; 72220

== ENCOUNTER → 2019-01-10 | Outpatient (CLI) | payer MEDICARE, OTHER ==
--- NOTE | 2019-01-10 13:10 | Diagnostic Imaging Report ---
PROCEDURE: MRI lumbar spine. TECHNIQUE: Multiplanar, multisequence MRI of the lumbar spine was performed without contrast. INDICATION: Low back pain. Fall 2 months ago. COMPARISON: Lumbar spine radiographs 01/02/2019. FINDINGS: Grade 1 retrolisthesis of L1 on L2. Alignment is otherwise unremarkable. Vertebral body heights preserved. Normal bone marrow signal. No abnormal signal in the conus which terminates at L2. Normal morphology of the cauda equina. No acute findings in the visualized abdomen or pelvis. L1-L2: Small annular disc bulge results in no spinal canal or lateral recess narrowing. Facet arthropathy results in mild right neural foraminal narrowing. L2-L3: No spinal canal or lateral recess narrowing. Mild facet arthropathy and bilateral neural foraminal narrowing. L3-L4: No spinal canal, lateral recess or neural foraminal narrowing. L4-L5: No spinal canal, lateral recess or neural foraminal narrowing. Mild facet arthropathy. L5-S1: No spinal canal, lateral recess or neural foraminal narrowing. IMPRESSION: 1. Mild spondylotic changes result in no high-grade neural impingement. 2. No acute osseous or ligamentous findings. Dictated by: Dictated on workstation # [id number]
== END ==
LOC: RAD 12:20
PROVIDERS: ATTEND Nurse Practitioner Family
DX: M47.816 Spondylosis without myelopathy or radiculopathy, lumbar region (principal)
CPT/HCPCS: 72148

== ENCOUNTER 2019-01-22 19:15 | Emergency (ER) | payer MEDICARE, OTHER ==
[~2019-01-22] VITALS: Ht 162 cm; Wt 77.0 kg
--- NOTE | 2019-01-22 19:30 | ED Fall/Injury ---
General Stated Complaint: FALL/L ANKLE AND R ARM INJ Source: patient Exam Limitations: no limitations History of Present Illness Date Seen by Provider: Jan 22, 2019 Time Seen by Provider: 19:28 Initial Comments To ER per private vehicle from home with reports of a fall. She been feeling fine all day, she sat down the table to have a cup of coffee, upon standing had numbness in her leg from the knee distally. She tried to bear weight on her leg gave out, she has since twisted the left ankle and now has pain and swelling, pain to the left shoulder and pain to the dorsal right forearm. Did not hit her head. She still has persistent numbness only from the knee distally on the left. States she has a long history of sciatica. This numbness was not present when she sat down at the table to have coffee. Occurred: just prior to arrival Severity: moderate Injuries/Pain Location: upper extremity, lower extremity Loss of Consciousness: no loss of consciousness Associated Symptoms (Fall): Denies Symptoms Allergies and Home Medications Allergies Coded Allergies: Sulfa (Sulfonamide Antibiotics) (Verified Allergy, Unknown, 07/08/09) oxytetracycline (Verified Allergy, Unknown, 07/08/09) penicillin G (Verified Allergy, Unknown, 07/08/09) Home Medications Cephalexin 500 Mg Tablet, 500 MG PO BID Prescribed by: ELIA PRASAD on 05/23/17 0428 Cholecalciferol 5,000 Unit Capsule, 5,000 UNIT PO DAILY, (Reported) Ciprofloxacin HCl 500 Mg Tablet, 500 MG PO Q12H Prescribed by: ALYSON TAYLOR on 06/25/15 0947 Cyanocobalamin (Vitamin B-12) 2,500 Mcg Tablet, 2,500 MCG PO DAILY, (Reported) Hydrocodone/Acetaminophen 1 Each Tablet, 1 EACH PO Q4H PRN for ABDOMINAL PAIN Prescribed by: ALYSON TAYLOR on 06/25/15 0948 Multivitamin/Iron/Folic Acid 1 Each Tablet, 1 TAB PO DAILY, (Reported) Potassium Gluconate 99 Mg Tablet, 99 MG PO DAILY, (Reported) Simvastatin 20 Mg Tablet, 20 MG PO DAILY, (Reported) Thyroid,Pork 16.25 Mg Tablet, 16.25 MG PO DAILY, (Reported) Vitamin E (Dl,Tocopheryl Acet) 200 Unit Capsule, 200 UNIT PO DAILY, (Reported) Patient Home Medication List Home Medication List Reviewed: Yes Review of Systems Review of Systems Constitutional: see HPI Eyes: No Symptoms Reported Ears, Nose, Mouth, Throat: no symptoms reported Respiratory: no symptoms reported Cardiovascular: no symptoms reported Genitourinary: no symptoms reported Musculoskeletal: see HPI Skin: no symptoms reported Psychiatric/Neurological: No Symptoms Reported Past Qhqfdzx-Wbgjiv-Cmhzzn Hx Patient Social History 2nd Hand Smoke Exposure: No Recent Foreign Travel: No Contact w/Someone Who Travel: No Recent Hopitalizations: Yes Immunizations Up To Date Tetanus Booster (TDap): Less than 5yrs Seasonal Allergies Seasonal Allergies: No Past Medical History Surgeries: Yes (RIGHT KNEE ARTH. HIATAL HERNIA REPAIR, BLADDER TIE UP X2, COLON RESECTION) Abdominal, Adenoidectomy, Bladder Surgery, Gallbladder, Hysterectomy, Orthopedic, Tonsillectomy Respiratory: No (ASTHMA A CHILD) Cardiac: No High Cholesterol Neurological: No Reproductive Disorders: No Sexually Transmitted Disease: No HIV/AIDS: No Genitourinary: Yes UTI-Chronic Gastrointestinal: Yes (ULCERS, HX OF COLON RESECTION) Gastroesophageal Reflux, Hiatal Hernia, Ulcer Musculoskeletal: Yes Arthritis Endocrine: No Loss of Vision: Denies Hearing Impairment: Denies Cancer: Yes Skin Psychosocial: No Integumentary: Yes (SKIN CANCER) Blood Disorders: No Family Medical History Cancer 03 MOTHER (ALL OVER) Cancer of colon 03 MOTHER Family history: Arthritis 03 FATHER 03 MOTHER Family history: Cardiovascular disease 03 FATHER 09 SISTER Family history: Diabetes mellitus 03 FATHER Family history: Gastrointestinal disease 03 FATHER 03 MOTHER Family history: Hypertension 03 FATHER 09 SISTER Myocardial infarction 03 FATHER No Family History of: Abdominal aortic aneurysm Alcoholism Congenital heart disease Congestive heart failure Family history: Alzheimer's disease Family history: Asthma Family history: Breast disease Family history: Thyroid disorder Hereditary disease History of - respiratory disease Kidney disease Prostate cancer Psychotic disorder Seizure disorder Stroke Physical Exam Vital Signs Vital Signs - First Documented 01/22/19 19:32 Temp 36.9 Pulse 78 Resp 16 B/P (MAP) 178/100 (126) Pulse Ox 98 Capillary Refill : Height, Weight, BMI Height: 5'5.00" Weight: 155lbs. 0.5oz. [id number]; 25.74 BMI Method:Stated General Appearance: WD/WN, no apparent distress Respiratory: no respiratory distress, no accessory muscle use Gastrointestinal: normal bowel sounds, non tender, soft Extremities: normal range of motion, non-tender, other (circumferential swelling around the left ankle mostly over the lateral malleolus. There is a hematoma without a break in the skin overlying the proximal dorsal right forearm) Neurologic/Psychiatric: alert, normal mood/affect, oriented x 3 Skin: normal color, warm/dry [place] Coma Score Best Eye Response: (4) Open Spontaneously Best Verbal Response: (5) Oriented Best Motor Response: (6) Obeys Commands Ruben Total: 15 Progress/Results/Core Measures Results/Orders My Orders Orders - STEFFANIE MARTINEZ APRN Ankle, Left, 3 Views (01/22/19 19:27) Tibia/Fibula, Left, 2 Views (01/22/19 19:27) Hydrocodone/Apap 5/325 Tablet (Lortab 5 (01/22/19 19:45) Shoulder, Left, 3 Views (01/22/19 19:43) Forearm, Right, 2 Views (01/22/19 20:03) Rx-Hydrocodone/Apap 5-325 Mg (Rx-Vicodin (01/22/19 21:00) Medications Given in ED Current Medications Medications Dose Ordered Sig/Ady Route Start Time Stop Time Status Last Admin Dose Admin Acetaminophen/ Hydrocodone Bitart 1 ea Q4H PRN PO 01/22/19 21:00 01/22/19 21:06 DC 01/22/19 21:02 1 EA Acetaminophen/ Hydrocodone Bitart 1 tab ONCE ONCE PO 01/22/19 19:45 01/22/19 19:46 DC 01/22/19 19:47 1 TAB Vital Signs/I&O 01/22/19 01/22/19 19:32 20:53 Temp 36.9 36.9 Pulse 78 78 Resp 16 16 B/P (MAP) 178/100 (126) 178/100 Pulse Ox 98 98 Diagnostic Imaging Diagonstic Imaging: Xray Comments NAME: LUCY SANCHEZ [facility] REC#: [id number] PT STATUS: REG ER : 1945 PHYSICIAN: STEFFANIE MARTINEZ APRN ADMIT DATE: 01/22/19/ER Draft Date of Exam:01/22/19 ANKLE, LEFT, 3 VIEWS INDICATION: Left ankle injury COMPARISON: None FINDINGS: 3 views of the left ankle demonstrate an avulsion fracture of the tip of the fibula. There is moderate soft tissue swelling. The ankle mortise appears intact. No foreign body. IMPRESSION: Age-indeterminate avulsion fracture of the distal fibula with associated soft tissue swelling. Dictated on workstation # [id number] Dict: 01/22/192031 Trans: 01/22/192035 [facility] [id number] Interpreted by: STEVE VITALE Electronically signed by: Departure Impression Primary Impression: Avulsion fracture of ankle Qualified Codes: S82.892A - Other fracture of left lower leg, initial encounter for closed fracture Disposition: HOME, SELF-CARE Condition: Stable Departure-Patient Inst. Decision time for Depature: 20:39 Referrals: HINA DICKENS MD (PCP/Family) Primary Care Physician Patient Instructions: Avulsion Fracture (DC) Add. Discharge Instructions: 1. Wear the brace when you're up moving around 2. Go home and elevate the foot as much as possible for the next 1 week. Tylenol and ibuprofen for pain control. Keep the Joce wrap in place. Ice pack at 20 minute intervals for the next 2-3 days. Crutches as needed for pain with weightbearing when walking STEFFANIE MARTINEZ APRN Jan 22, 2019 19:30
[2019-01-22] MEDS ORDERED: HYDROcodone/APAP 5 MG/325 MG (LORTAB) TAB PO ONE (19:45)
--- NOTE | 2019-01-22 20:37 | Diagnostic Imaging Report ---
INDICATION: Left ankle injury COMPARISON: None FINDINGS: 3 views of the left ankle demonstrate an avulsion fracture of the tip of the fibula. There is moderate soft tissue swelling. The ankle mortise appears intact. No foreign body. IMPRESSION: Age-indeterminate avulsion fracture of the distal fibula with associated soft tissue swelling. Dictated by: Dictated on workstation # [id number]
--- NOTE | 2019-01-22 20:38 | Diagnostic Imaging Report ---
INDICATION: Left leg injury COMPARISON: None FINDINGS: Multiple views of the left tibia-fibula demonstrate age indeterminant avulsion fracture of the fibula tip. Ankle mortise is intact. The remainder of the tibia and fibula are unremarkable. The knee is unremarkable. IMPRESSION: Age-indeterminate distal fibula avulsion fracture Dictated by: Dictated on workstation # [id number]
--- NOTE | 2019-01-22 20:42 | Diagnostic Imaging Report ---
INDICATION: Forearm injury, hematoma COMPARISON: None FINDINGS: Two views of the right forearm demonstrate soft tissue thickening, likely hematoma. There is no underlying fracture or dislocation. No joint effusion is seen. The visualized wrist and elbow are intact. IMPRESSION: No acute fracture or dislocation. Dictated by: Dictated on workstation # [id number]
--- NOTE | 2019-01-22 20:44 | Diagnostic Imaging Report ---
INDICATION: Left shoulder injury COMPARISON: None FINDINGS: 3 views of the left shoulder demonstrate no fracture or dislocation. No osseous lesion is seen. Degenerative joint disease is present. IMPRESSION: No fractures Dictated by: Dictated on workstation # [id number]
[2019-01-22 20:53] VITALS: BP 178/100
[2019-01-22] MEDS ORDERED: RX-HYDROCODONE/APAP 5/325 MG #4 TAB PK PO PRN (21:00)
== END 2019-01-22 21:06 | disposition home or self-care (01) ==
LOC: EDUNIT# 19:15 → ER 19:16
DX: S82.832A Other fracture of upper and lower end of left fibula, initial encounter for closed fracture (principal); J45.909 Unspecified asthma, uncomplicated; E78.00 Pure hypercholesterolemia, unspecified; K21.9 Gastro-esophageal reflux disease without esophagitis; R40.2142 Coma scale, eyes open, spontaneous, at arrival to emergency department; R40.2252 Coma scale, best verbal response, oriented, at arrival to emergency department; R40.2362 Coma scale, best motor response, obeys commands, at arrival to emergency department; Z85.828 Personal history of other malignant neoplasm of skin; Z87.440 Personal history of urinary (tract) infections; Z80.49 Family history of malignant neoplasm of other genital organs; Z88.2 Allergy status to sulfonamides; Z88.0 Allergy status to penicillin; Z88.1 Allergy status to other antibiotic agents; Z90.89 Acquired absence of other organs; Z90.710 Acquired absence of both cervix and uterus; Z80.0 Family history of malignant neoplasm of digestive organs; Z82.49 Family history of ischemic heart disease and other diseases of the circulatory system; W18.39XA Other fall on same level, initial encounter
CPT/HCPCS: 73030; 73090; 73590; 73610

== ENCOUNTER → 2019-02-05 | Outpatient (CLI) | payer MEDICARE, OTHER ==
--- NOTE | 2019-02-05 10:59 | Diagnostic Imaging Report ---
INDICATION: Screening for osteoporosis. COMPARISON: None FINDINGS: There are no prior studies available for comparison. The bone mineral density of hips and spine was measured. The T score for the spine is -2.2. This indicates severe osteopenia. The total T score for the left hip is -1.8 and for the right hip -2.0. These values also fall within the range of osteopenia. However, the T score for the left femoral neck is -2.5 and for the right femoral neck -2.9. These T scores indicate osteoporosis. AP Spine L1-L4: [BMD (g/cm2): 0.938] [T-Score: -2.2] [Z-Score: -0.6] [BMD Previous: 1.046] [BMD % Change: -10.3] LT Hip Neck: [BMD (g/cm2): 0.657] [T-Score: -2.5] [Z-Score: -0.9] LT Hip Total: [BMD (g/cm2):0.785] [T-Score:-1.8] [Z-Score: -0.3] [BMD Previous: 0.877] [BMD % Change: -10.5] RT Hip Neck: [BMD (g/cm2):0.641] [T-Score:-2.9] [Z-Score:-1.2] RT Hip Total: [BMD (g/cm2):0.754] [T-score:-2.0] [Z-Score:-0.6] [BMD Previous:0.811] [BMD % Change:-7.0] *Indicates significant change from prior examination based on 95% confidence level. World Health Organization criteria for BMD interpretation classify patients as Normal (T-score at or above -1.0), Osteopenic (T-score between -1.0 and -2.5) or Osteoporotic (T-score at or below -2.5). LIMITATIONS AND MODIFICATION: None. FRACTURE RISK (FRAX SCORE): The ten year probability of (%): Major Osteoporotic Fracture: [18.5] Hip Fracture: [6.1] IMPRESSION: 1. The T score for the lumbar spine indicates severe osteopenia. The total hip score for each hip falls within the range of osteopenia as well. 2. However, there is osteoporosis of both femoral necks. 3. See below National Osteoporosis Foundation guidelines on when to potentially initiate pharmacologic therapy. Based on the National Osteoporosis Foundation Guidelines, pharmacologic treatment should be initiated in any of the following, unless clinical conditions suggest otherwise: * Any patient with prior fragility fracture of the hip or vertebrae. A spine fracture indicates 5X risk for subsequent spine fracture and 2X risk for subsequent hip fracture. * Osteoporosis (T-score <-2.5). * Postmenopausal women and men age 50 and older with low bone mass/osteopenia (T-score between -1.0 and -2.5) by DXA and 10-year major osteoporotic fracture greater than 20% or a 10-year probability of hip fracture greater than 3%. These fracture risks are supplied above in the FRAX score, if applicable. * Clinician judgement and/or patient preferences may indicate treatment for people with 10-year fracture probabilities above or below these levels. Dictated by: Dictated on workstation # [id number]
== END ==
LOC: RAD 09:46
PROVIDERS: ATTEND Nurse Practitioner Family
DX: Z13.820 Encounter for screening for osteoporosis (principal); M81.0 Age-related osteoporosis without current pathological fracture; M85.89 Other specified disorders of bone density and structure, multiple sites
CPT/HCPCS: 77080

== ENCOUNTER → 2019-02-21 | Outpatient (CLI) | payer MEDICARE, OTHER ==
--- NOTE | 2019-02-21 10:23 | Diagnostic Imaging Report ---
INDICATION: LT ANKLE HEEL PAIN ANKLE FX COMPARISON: 01/22/2019. FINDINGS: 3 views of the left ankle were obtained. There is no acute fracture or dislocation. No focal osseous lesions are seen. The surrounding soft tissue structures are unremarkable. There are no radiopaque foreign bodies. IMPRESSION: 1. No acute fracture or dislocation in the left ankle. Dictated by: Dictated on workstation # [id number]
--- NOTE | 2019-02-21 10:42 | Diagnostic Imaging Report ---
EXAMINATION: Left heel INDICATION: Heel pain PA and lateral views were obtained. There is no fracture, dislocation or acute bony abnormality evident. The prominent calcaneal spur seen on the prior exam of 01/22/2019 is again evident and no different. The soft tissues are unremarkable. IMPRESSION: There is no evidence for an acute bony abnormality. Dictated by: Dictated on workstation # [id number]
== END ==
LOC: RAD 09:29
PROVIDERS: ATTEND Nurse Practitioner Family
DX: M25.572 Pain in left ankle and joints of left foot (principal)
CPT/HCPCS: 73610; 73650

== ENCOUNTER 2019-03-11 08:52 | Outpatient (CLI) | payer MEDICARE, OTHER ==
[~2019-03-11] VITALS: Ht 160 cm; Wt 77.0 kg
[2019-03-11] MEDS ORDERED: DENOSUMAB 60 MG/1 ML (PROLIA) SQ ONE (09:15)
[2019-03-11 09:30] VITALS: BP 153/73
== END 2019-03-11 09:30 | disposition home or self-care (01) ==
LOC: SDC 08:52
PROVIDERS: ATTEND Nurse Practitioner Family
DX: M80.80XA Other osteoporosis with current pathological fracture, unspecified site, initial encounter for fracture (principal)
CPT/HCPCS: 96372

== ENCOUNTER → 2019-03-11 | Outpatient (CLI) | payer MEDICARE, OTHER ==
--- NOTE | 2019-03-11 08:54 | Diagnostic Imaging Report ---
PROCEDURE: MR imaging of the brain without contrast. TECHNIQUE: Multiplanar, multisequence MR imaging of the brain was performed without contrast. INDICATION: Memory loss. COMPARISON: No prior studies are available for comparison. FINDINGS: The ventricles and sulci are appropriate for the patient's age. There are moderate periventricular and subcortical white matter signal abnormalities noted, likely on the basis of chronic microvascular ischemia. No diffusion restriction is identified to suggest acute ischemia. The normal expected flow-voids within the carotid siphons are noted. No acute intra-axial or extra-axial hemorrhage is detected. The corpus callosum is unremarkable. The sella and parasellar structures are unremarkable. IMPRESSION: Changes of chronic microvascular ischemia. No acute intracranial process is detected. Dictated by: Dictated on workstation # [id number]
== END ==
LOC: RAD 07:52
PROVIDERS: ATTEND Nurse Practitioner Family
DX: I67.82 Cerebral ischemia (principal); R41.3 Other amnesia
CPT/HCPCS: 70551

== ENCOUNTER 2019-03-30 00:40 | Emergency (ER) | payer MEDICARE, OTHER ==
[~2019-03-30] VITALS: Ht 162 cm; Wt 81.0 kg
--- NOTE | 2019-03-30 00:58 | ED General ---
General Stated Complaint: POSS STROKE Source of Information: Patient (POOR HISTORIAN), Old Records History of Present Illness Date Seen by Provider: Mar 30, 2019 Time Seen by Provider: 00:40 Initial Comments PT ARRIVES VIA POV FROM HOME, DAUGHTER BROUGHT HER DAUGHTER "THOUGHT SHE MIGHT BE HAVING A STROKE" PT STATES SHE WAS SMELLING A CANDLE AND "THE SMELL--IT JUST GOT TO ME" STATES SHE FELT WEAK AND SHAKEY ALL OVER STATE BOTH HER HANDS AND HER LIPS WENT NUMB THEN STATES "THEY WEREN'T NUMB-THEY WERE KNOTTED UP--MY LEGS AND MY HANDS" --STATES WAS BILATERAL AND SYMPTOMS WERE SAME ON BOTH SIDES C/O SLIGHT DIZZINESS C/O NAUSEA AND VOMITED X 1 PRIOR TO ARRIVAL. SLIGHT NAUSEA NOW. NO ABDOMINAL PAIN NO CHEST PAIN NO SHORTNESS OF BREATH NO VISION CHANGES C/O SLIGHT HEADACHE STATES SHE IS NOT SURE WHEN THIS STARTED --THINKS IT MIGHT HAVE BEEN AROUND 10:00 PM TONIGHT. ON REVIEW OF CHART, PT HAD MRI OF BRAIN 03/11/19 FOR DX OF MEMORY LOSS. FINDINGS WERE NO ACUTE PROCESS, BUT CHRONIC MICROVASCULAR ISCHEMIC CHANGES FAMILY REPORTS THAT SYMPTOMS BEGAN A WEEK OR TWO AGO SUBJECTIVE FEVER AND CHILLS TODAY HAS BEEN SLURRING HER SPEECH AND HAS BEEN A LITTLE DISORIENTED AND "ACTING DRUNK" PT VOMITED X 1 TONIGHT PT WAS STARTED ON ARICEPT A WEEK OR TWO AGO FOR DEMENTIA PCP: DR. DICKENS Allergies and Home Medications Allergies Coded Allergies: Sulfa (Sulfonamide Antibiotics) (Verified Allergy, Unknown, 07/08/09) oxytetracycline (Verified Allergy, Unknown, 07/08/09) penicillin G (Verified Allergy, Unknown, 07/08/09) Home Medications Cephalexin 500 Mg Tablet, 500 MG PO BID Prescribed by: ELIA PRASAD on 05/23/17 0428 Cholecalciferol 5,000 Unit Capsule, 5,000 UNIT PO DAILY, (Reported) Ciprofloxacin HCl 500 Mg Tablet, 500 MG PO Q12H Prescribed by: ALYSON TAYLOR on 06/25/15 0947 Cyanocobalamin (Vitamin B-12) 2,500 Mcg Tablet, 2,500 MCG PO DAILY, (Reported) Hydrocodone/Acetaminophen 1 Each Tablet, 1 EACH PO Q4H PRN for ABDOMINAL PAIN Prescribed by: ALYSON TAYLOR on 06/25/15 0948 Multivitamin/Iron/Folic Acid 1 Each Tablet, 1 TAB PO DAILY, (Reported) Ondansetron 4 Mg Tab.rapdis, 4 MG PO Q4H Prescribed by: COURTNEY ORDONEZ on 03/30/19 0216 Potassium Gluconate 99 Mg Tablet, 99 MG PO DAILY, (Reported) Simvastatin 20 Mg Tablet, 20 MG PO DAILY, (Reported) Thyroid,Pork 16.25 Mg Tablet, 16.25 MG PO DAILY, (Reported) Vitamin E (Dl,Tocopheryl Acet) 200 Unit Capsule, 200 UNIT PO DAILY, (Reported) Patient Home Medication List Home Medication List Reviewed: Yes Review of Systems Review of Systems Constitutional: see HPI, dizziness EENTM: no symptoms reported Respiratory: no symptoms reported; No cough, No short of breath Cardiovascular: no symptoms reported; No chest pain, No palpitations, No syncope Gastrointestinal: see HPI; No abdominal pain; nausea, vomiting Genitourinary: no symptoms reported Musculoskeletal: see HPI Skin: no symptoms reported Psychiatric/Neurological: See HPI, Anxiety, Headache, Numbness, Paresthesia; Denies Seizure; Tingling, Tremors, Weakness Hematologic/Lymphatic: No Symptoms Reported Immunological/Allergic: no symptoms reported Past Hsucnly-Kbnxei-Vmclgf Hx Past Med/Social Hx: Reviewed and Corrections made Patient Social History Alcohol Use: Denies Use Recreational Drug Use: No Smoking Status: Never a Smoker 2nd Hand Smoke Exposure: No Recent Foreign Travel: No Contact w/Someone Who Travel: No Recent Hopitalizations: Yes Immunizations Up To Date Tetanus Booster (TDap): Less than 5yrs Seasonal Allergies Seasonal Allergies: No Past Medical History Surgeries: Yes (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; RIGHT HEMICOLECTOMY FOR LIPOMA OF RIGHT COLON 06/22/15; LAPAROSCOPIC FUNDOPLICATION; EGD/COLONOSCOPY; RIGHT KNEE SCOPE; BLADDER SUSPENSION X 2) Abdominal, Adenoidectomy, Bladder Surgery, Bowel Surgery, Gallbladder, Hysterectomy, Orthopedic, Tonsillectomy Respiratory: Yes (ASTHMA CHILD) Asthma Currently Using CPAP: No Currently Using BIPAP: No Cardiac: Yes High Cholesterol Neurological: Yes (MEMORY LOSS ) Dementia Reproductive Disorders: No Sexually Transmitted Disease: No HIV/AIDS: No Genitourinary: Yes (BLADDER SUSPENSION X 2 ) UTI-Chronic Gastrointestinal: Yes (S/P LAPAROSCOPIC MEHNAZ FUNDOPLICATION; LIPOMA OF RIGHT COLON--S/P RIGHT HEMICOLECTOMY 06/22/18; SMALL BOWEL RESECTION FOR DESMOID TUMOR-BENIGN; CHOLECYSTECTOMY; H. PYLORI) Gastroesophageal Reflux, Hiatal Hernia, Ulcer, Gall Bladder Disease Musculoskeletal: Yes (RIGHT KNEE SCOPE) Arthritis Endocrine: No HEENT: No Loss of Vision: Denies Hearing Impairment: Denies Cancer: Yes Skin Did You Recieve Any Treatments: Yes What Type of Treatment Did You: Chemotherapy Psychosocial: No Integumentary: Yes (SKIN CANCER) Blood Disorders: No Family Medical History Cancer 03 MOTHER (ALL OVER) Cancer of colon 03 MOTHER Family history: Arthritis 03 FATHER 03 MOTHER Family history: Cardiovascular disease 03 FATHER 09 SISTER Family history: Diabetes mellitus 03 FATHER Family history: Gastrointestinal disease 03 FATHER 03 MOTHER Family history: Hypertension 03 FATHER 09 SISTER Myocardial infarction 03 FATHER No Family History of: Abdominal aortic aneurysm Alcoholism Congenital heart disease Congestive heart failure Family history: Alzheimer's disease Family history: Asthma Family history: Breast disease Family history: Thyroid disorder Hereditary disease History of - respiratory disease Kidney disease Prostate cancer Psychotic disorder Seizure disorder Stroke Physical Exam Vital Signs Vital Signs - First Documented 03/30/19 03/30/19 00:40 01:38 Temp 36.4 Pulse 81 Resp 22 B/P (MAP) 112/52 (72) Pulse Ox 96 O2 Delivery Room Air O2 Flow Rate 2.00 Capillary Refill : Height, Weight, BMI Height: 5'5.00" Weight: 155lbs. 0.5oz. [id number]; 29.00 BMI Method:Stated General Appearance: No Apparent Distress, WD/WN HEENT: PERRL/EOMI Neck: Normal Inspection Respiratory: Normal Breath Sounds, No Accessory Muscle Use, No Respiratory Distress Cardiovascular: Regular Rate, Rhythm, No Edema, No JVD, No Murmur Gastrointestinal: Non Tender, Soft Back: No CVA Tenderness Extremity: Normal Capillary Refill, Normal Range of Motion, Non Tender, No Calf Tenderness, No Pedal Edema Neurologic/Psychiatric: Alert, No Motor/Sensory Deficits, director product management II-XII Norm as Tested, Other (ANXIOUS, TREMULOUS. ORIENTED TO PERSON, PLACE, DISORIENTED TO TIME, LIMITED ORIENTATION TO SITUATION. ) Skin: Normal Color, Warm/Dry Progress/Results/Core Measures Suspected Sepsis SIRS Temperature: Pulse: Respiratory Rate: Laboratory Tests 03/30/19 00:48: White Blood Count 7.5 Blood Pressure / Mean: Laboratory Tests 03/30/19 00:48: Creatinine 0.81, INR Comment 0.9, Platelet Count 260, Total Bilirubin 0.4 Results/Orders Lab Results Laboratory Tests Test 03/30/19 00:45 03/30/19 00:48 03/30/19 00:56 Range/Units Glucometer 115 H 70-110 MG/DL White Blood Count 7.5 4.3-11.0 10^3/uL Red Blood Count 4.20 L 4.35-5.85 10^6/uL Hemoglobin 12.4 11.5-16.0 G/DL Hematocrit 38 35-52 % Mean Corpuscular Volume 91 80-99 FL Mean Corpuscular Hemoglobin 30 25-34 PG Mean Corpuscular Hemoglobin Concent 33 32-36 G/DL Red Cell Distribution Width 13.7 10.0-14.5 % Platelet Count 260 130-400 10^3/uL Mean Platelet Volume 9.7 7.4-10.4 FL Neutrophils (%) (Auto) 59 42-75 % Lymphocytes (%) (Auto) 28 12-44 % Monocytes (%) (Auto) 9 0-12 % Eosinophils (%) (Auto) 4 0-10 % Basophils (%) (Auto) 0 0-10 % Neutrophils # (Auto) 4.5 1.8-7.8 X 10^3 Lymphocytes # (Auto) 2.1 1.0-4.0 X 10^3 Monocytes # (Auto) 0.7 0.0-1.0 X 10^3 Eosinophils # (Auto) 0.3 0.0-0.3 10^3/uL Basophils # (Auto) 0.0 0.0-0.1 10^3/uL Prothrombin Time 12.8 12.2-14.7 SEC INR Comment 0.9 0.8-1.4 Activated Partial Thromboplast Time 35 24-35 SEC Sodium Level 141 135-145 MMOL/L Potassium Level 4.1 3.6-5.0 MMOL/L Chloride Level 107 98-107 MMOL/L Carbon Dioxide Level 24 21-32 MMOL/L Anion Gap 10 5-14 MMOL/L Blood Urea Nitrogen 21 H 7-18 MG/DL Creatinine 0.81 0.60-1.30 MG/DL Estimat Glomerular Filtration Rate > 60 BUN/Creatinine Ratio 26 Glucose Level 127 H 70-105 MG/DL Calcium Level 9.2 8.5-10.1 MG/DL Corrected Calcium 9.2 8.5-10.1 MG/DL Magnesium Level 2.1 1.6-2.4 MG/DL Total Bilirubin 0.4 0.1-1.0 MG/DL Aspartate Amino Transf (AST/SGOT) 24 5-34 U/L Alanine Aminotransferase (ALT/SGPT) 23 0-55 U/L Alkaline Phosphatase 103 40-136 U/L Total Creatine Kinase 48 29-168 U/L Creatine Kinase MB 1.7 <6.6 NG/ML Myoglobin 51.9 10.0-92.0 NG/ML Troponin I < 0.028 <0.028 NG/ML B-Type Natriuretic Peptide 14.1 <100.0 PG/ML Total Protein 6.8 6.4-8.2 GM/DL Albumin 4.0 3.2-4.5 GM/DL Amylase Level 40 25-125 U/L Lipase 38 8-78 U/L TSH [place] Testing 2.08 0.35-4.94 UIU/ML Salicylates Level < 5.0 L 5.0-20.0 MG/DL Acetaminophen Level < 10 L 10-30 UG/ML Serum Alcohol < 10 <10 MG/DL Urine Color YELLOW Urine Clarity CLEAR Urine pH 5.5 5-9 Urine Specific Nash >=1.030 1.016-1.022 Urine Protein NEGATIVE NEGATIVE Urine Glucose (UA) NEGATIVE NEGATIVE Urine Ketones NEGATIVE NEGATIVE Urine Nitrite NEGATIVE NEGATIVE Urine Bilirubin NEGATIVE NEGATIVE Urine Urobilinogen 0.2 < = 1.0 MG/DL Urine Leukocyte Esterase NEGATIVE NEGATIVE Urine RBC (Auto) NEGATIVE NEGATIVE Urine RBC RARE /HPF Urine WBC RARE /HPF Urine Squamous Epithelial Cells 2-5 /HPF Urine Crystals PRESENT H /LPF Urine Calcium Oxalate Crystals MODERATE H /LPF Urine Bacteria NEGATIVE /HPF Urine Casts PRESENT /LPF Urine Hyaline Casts 0-2 H /LPF Urine Mucus LARGE H /LPF Urine Culture Indicated NO Urine Opiates Screen NEGATIVE NEGATIVE Urine Oxycodone Screen NEGATIVE NEGATIVE Urine Methadone Screen NEGATIVE NEGATIVE Urine Propoxyphene Screen NEGATIVE NEGATIVE Urine Barbiturates Screen NEGATIVE NEGATIVE Ur Tricyclic Antidepressants Screen NEGATIVE NEGATIVE Urine Phencyclidine Screen NEGATIVE NEGATIVE Urine Amphetamines Screen NEGATIVE NEGATIVE Urine Methamphetamines Screen NEGATIVE NEGATIVE Urine Benzodiazepines Screen NEGATIVE NEGATIVE Urine Cocaine Screen NEGATIVE NEGATIVE Urine Cannabinoids Screen NEGATIVE NEGATIVE My Orders Orders - COURTNEY ORDONEZ DO Accucheck Stat ONCE (03/30/19 00:45) Ed Iv/Invasive Line Start (03/30/19 00:45) Ekg Tracing (03/30/19 00:45) Monitor-Rhythm Ecg Trace Only (03/30/19 00:45) Straight Cath For Spec.-Adult (03/30/19 00:45) Ct Head Wo-R/O Stroke (03/30/19 00:45) Acetaminophen (03/30/19 00:45) Alcohol (03/30/19 00:45) Amylase (03/30/19 00:45) BNP (03/30/19 00:45) Cbc With Automated Diff (03/30/19 00:45) Comprehensive Metabolic Panel (03/30/19 00:45) Creatine Kinase (03/30/19 00:45) Creatine Kinase Mb (03/30/19 00:45) Drug Screen Stat (Urine) (03/30/19 00:45) Lipase (03/30/19 00:45) Magnesium (03/30/19 00:45) Protime With Inr (03/30/19 00:45) Partial Thromboplastin Time (03/30/19 00:45) Salicylate (03/30/19 00:45) Thyroid Analyzer (03/30/19 00:45) Ua Culture If Indicated (03/30/19 00:45) Myoglobin Serum (03/30/19 00:45) Troponin I (03/30/19 00:45) Chest 1 View, Ap/Pa Only (03/30/19 00:45) O2 (03/30/19 01:38) Rx-Ondansetron Po (Rx-Zofran Po) (03/30/19 02:17) Vital Signs/I&O 03/30/19 03/30/19 03/30/19 00:40 01:38 02:37 Temp 36.4 36.4 Pulse 81 81 Resp 22 22 B/P (MAP) 112/52 (72) 106/70 (72) Pulse Ox 96 89 95 O2 Delivery Room Air Nasal Cannula Room Air O2 Flow Rate 2.00 2.00 Capillary Refill : Point of Care Testing Finger Stick Blood Glucose: 115 Blood Glucose Action Taken: Dr Ordonez notified Progress Note : Progress Note SLEPT FOR REMAINDER OF ER STAY ECG Initial ECG Impression Date: Mar 30, 2019 Initial ECG Impression Time: 00:47 Initial ECG Rate: 83 Initial ECG Rhythm: Normal Sinus Diagnostic Imaging Comments CXR--MILDLY INCREASED PERIHILAR MARKINGS, PENDING RADIOLOGIST REVIEW CT HEAD--NO ACUTE PROCESS, PER [facility] RADIOLOGIST VIA PHONE AT [phone], AND VIA FAX AT [phone] Reviewed: Reviewed by Me, Discussed w/Radiologist Departure Impression Primary Impression: Altered mental status Additional Impressions: Dementia RECENTLY STARTED TAKING ARICEPT POSSIBLE ADVERSE MEDICATION REACTION Nausea & vomiting Disposition: 01 HOME, SELF-CARE Condition: Stable Departure-Patient Inst. Referrals: HINA DICKENS MD (PCP/Family) Primary Care Physician Patient Instructions: Altered Mental Status (DC), Dementia (DC), Delirium (Confusion) (DC), Nausea and Vomiting, Adult (DC) Add. Discharge Instructions: CONTINUE MEDICATIONS PRESCRIBED FOLLOW UP WITH DR. DICKENS NEXT WEEK, CALL ON MONDAY TO SCHEDULE APPOINTMENT RETURN TO ER IF WORSE Scripts Ondansetron (Ondansetron Odt) 4 Mg Tab.rapdis 4 MG PO Q4H for Nausea/Vomiting, #10 TAB Prov: COURTNEY ORDONEZ DO 03/30/19 COURTNEY ORDONEZ DO Mar 30, 2019 00:58 POS
[2019-03-30 01:00] LABS: BASOPHILS % (AUTO) 0 % (0-10); EOSINOPHILS # (AUTO) 0.3 10^3/uL (0.0-0.3); EOSINOPHILS % (AUTO) 4 % (0-10); HEMATOCRIT 38 % (35-52); HEMOGLOBIN 12.4 G/DL (11.5-16.0); LYMPHOCYTES # (AUTO) 2.1 X 10^3 (1.0-4.0); LYMPHOCYTES % (AUTO) 28 % (12-44); MEAN CORPUSCULAR HEMOGLOBIN 30 PG (25-34); MEAN CORPUSCULAR HGB CONC 33 G/DL (32-36); MEAN CORPUSCULAR VOLUME 91 FL (80-99); MEAN PLATELET VOLUME 9.7 FL (7.4-10.4); MONOCYTES # (AUTO) 0.7 X 10^3 (0.0-1.0); MONOCYTES % (AUTO) 9 % (0-12); NEUTROPHILS # (AUTO) 4.5 X 10^3 (1.8-7.8); NEUTROPHILS % (AUTO) 59 % (42-75); PLATELET COUNT 260 10^3/uL (130-400); RED CELL DISTRIBUTION WIDTH 13.7 % (10.0-14.5); WHITE BLOOD COUNT 7.5 10^3/uL (4.3-11.0)
[2019-03-30 01:07] LABS: BILIRUBIN,URINE NEGATIVE (NEGATIVE); CLARITY,URINE CLEAR; COLOR,URINE YELLOW; GLUCOSE, URINE (UA) NEGATIVE (NEGATIVE); KETONES,URINE NEGATIVE (NEGATIVE); LEUKOCYTE ESTERASE ,URINE NEGATIVE (NEGATIVE); NITRITE,URINE NEGATIVE (NEGATIVE); PH,URINE 5.5 (5-9); PROTEIN,URINE NEGATIVE (NEGATIVE)
[2019-03-30 01:28] LABS: INR 0.9 (0.8-1.4); PROTHROMBIN TIME PATIENT 12.8 SEC (12.2-14.7)
[2019-03-30 01:30] LABS: AMPHETAMINE SCREEN, URINE NEGATIVE (NEGATIVE); BACTERIA,URINE NEGATIVE /HPF; BARBITURATE SCREEN URINE NEGATIVE (NEGATIVE); BENZODIAZEPINES SCREEN URINE NEGATIVE (NEGATIVE); CANNABINOID SCREEN, URINE NEGATIVE (NEGATIVE); COCAINE SCREEN URINE NEGATIVE (NEGATIVE); METHADONE STAT NEGATIVE (NEGATIVE); METHAMPHETAMINE SCREEN URINE S NEGATIVE (NEGATIVE); OPIATE SCREEN URINE NEGATIVE (NEGATIVE); OXYCODONE STAT NEGATIVE (NEGATIVE); PROPOXYPHENE STAT NEGATIVE (NEGATIVE); RBC,URINE RARE /HPF; TRICYCLIC ANTIDEPRESSANTS SCRE NEGATIVE (NEGATIVE); WBC,URINE RARE /HPF
[2019-03-30 01:31] LABS: CALCIUM OXALATE CRYSTALS,UR MODERATE /LPF; HYALINE CASTS, URINE 0-2 /LPF
[2019-03-30 01:35] LABS: BUN/CREATININE RATIO 26; CARBON DIOXIDE 24 MMOL/L (21-32); CHLORIDE 107 MMOL/L (98-107); CREATININE SERUM 0.81 MG/DL (0.60-1.30); POTASSIUM 4.1 MMOL/L (3.6-5.0); SODIUM 141 MMOL/L (135-145)
[2019-03-30 01:36] LABS: ALANINE AMINOTRANSFERASE 23 U/L (0-55); ALKALINE PHOSPHATASE 103 U/L (40-136); AMYLASE 40 U/L (25-125); BILIRUBIN,TOTAL 0.4 MG/DL (0.1-1.0); CALCIUM 9.2 MG/DL (8.5-10.1); CREATINE KINASE 48 U/L (29-168); GFR ESTIMATED > 60; GLUCOSE 127 MG/DL (70-105); LIPASE 38 U/L (8-78); MAGNESIUM 2.1 MG/DL (1.6-2.4); SALICYLATE < 5.0 MG/DL (5.0-20.0); TOTAL PROTEIN 6.8 GM/DL (6.4-8.2)
[2019-03-30 01:41] LABS: ACETAMINOPHEN < 10 UG/ML (10-30)
[2019-03-30 01:56] LABS: CREATINE KINASE MB 1.7 NG/ML (<6.6); TSH (THYROID ANALYZER) 2.08 UIU/ML (0.35-4.94)
[2019-03-30] MEDS ORDERED: ONDA4TAB11 PO (02:16)
[2019-03-30] MEDS ORDERED: RX-ONDANSETRON 4 MG ODT (ZOFRAN) PPK #4 PO STA (02:17)
[2019-03-30 02:37] VITALS: BP 106/70
--- NOTE | 2019-03-30 06:08 | Diagnostic Imaging Report ---
PROCEDURE: CT head wo r/o stroke. TECHNIQUE: Multiple contiguous axial images were obtained through the brain without the use of intravenous contrast. Auto Exposure Controls were utilized during the CT exam to meet ALARA standards for radiation dose reduction. INDICATION: Stroke like symptoms. COMPARISON: MRI brain on 03/11/2019 FINDINGS: The ventricles and cortical sulci are age-appropriate. There is no midline shift or mass-effect. No acute intracranial hemorrhage is seen. There is no CT evidence of acute territorial ischemia. No focal masses or collections are present. The calvarium is intact. The visualized paranasal sinuses are clear. IMPRESSION: No hemorrhage or focal intra-axial mass. No CT evidence of large acute territorial ischemia. Agree with overnight report. Dictated by: Dictated on workstation # [id number]
--- NOTE | 2019-03-30 07:20 | Diagnostic Imaging Report ---
EXAMINATION: Chest 1 view HISTORY: Strokelike symptoms COMPARISON: 05/23/2017 FINDINGS: No focal consolidation is seen. No large pleural effusion or pneumothorax is seen. The cardiac silhouette is mildly prominent with prominent perihilar interstitial markings. No acute osseous abnormality is seen. IMPRESSION: 1. Mild cardiomegaly with prominent central pulmonary vasculature. No overt pulmonary edema. Dictated by: Dictated on workstation # [id number]
== END 2019-03-30 02:37 | disposition home or self-care (01) ==
LOC: EDUNIT# 00:40 → ER 00:42
DX: F03.90 Unspecified dementia, unspecified severity, without behavioral disturbance, psychotic disturbance, mood disturbance, and anxiety (principal); R11.2 Nausea with vomiting, unspecified; J45.909 Unspecified asthma, uncomplicated; E78.00 Pure hypercholesterolemia, unspecified; K21.9 Gastro-esophageal reflux disease without esophagitis; Z85.828 Personal history of other malignant neoplasm of skin; Z87.440 Personal history of urinary (tract) infections; Z88.2 Allergy status to sulfonamides; Z90.49 Acquired absence of other specified parts of digestive tract; Z88.0 Allergy status to penicillin; Z88.1 Allergy status to other antibiotic agents; Z90.89 Acquired absence of other organs; Z80.0 Family history of malignant neoplasm of digestive organs; Z82.49 Family history of ischemic heart disease and other diseases of the circulatory system
CPT/HCPCS: 36415; 51701; 70450; 71045; 80053; 80306; 80320; 80329; 81000; 82150; 82550; 82553; 82962; 83690; 83735; 83874; 83880; 84443; 84484; 85025; 85610; 85730; 93005; 93041

== ENCOUNTER 2019-06-10 09:11 | Outpatient (RCR) | payer MEDICARE, OTHER ==
[2019-06-06 13:30] LABS: BASOPHILS % (AUTO) 0 % (0-10); EOSINOPHILS # (AUTO) 0.2 10^3/uL (0.0-0.3); EOSINOPHILS % (AUTO) 2 % (0-10); HEMATOCRIT 43 % (35-52); HEMOGLOBIN 13.6 G/DL (11.5-16.0); LYMPHOCYTES # (AUTO) 2.8 X 10^3 (1.0-4.0); LYMPHOCYTES % (AUTO) 32 % (12-44); MEAN CORPUSCULAR HEMOGLOBIN 29 PG (25-34); MEAN CORPUSCULAR HGB CONC 32 G/DL (32-36); MEAN CORPUSCULAR VOLUME 90 FL (80-99); MEAN PLATELET VOLUME 9.1 FL (7.4-10.4); MONOCYTES # (AUTO) 0.8 X 10^3 (0.0-1.0); MONOCYTES % (AUTO) 9 % (0-12); NEUTROPHILS % (AUTO) 57 % (42-75); PLATELET COUNT 311 10^3/uL (130-400); RED CELL DISTRIBUTION WIDTH 15.2 % (10.0-14.5); WHITE BLOOD COUNT 8.8 10^3/uL (4.3-11.0)
[2019-06-06 13:55] LABS: ALANINE AMINOTRANSFERASE 24 U/L (0-55); ALBUMIN 4.1 GM/DL (3.2-4.5); ALKALINE PHOSPHATASE 71 U/L (40-136); BILIRUBIN,TOTAL 0.3 MG/DL (0.1-1.0); BUN/CREATININE RATIO 27; CALCIUM 9.5 MG/DL (8.5-10.1); CARBON DIOXIDE 29 MMOL/L (21-32); CHLORIDE 107 MMOL/L (98-107); CREATININE SERUM 0.79 MG/DL (0.60-1.30); GFR ESTIMATED > 60; GLUCOSE 94 MG/DL (70-105); SODIUM 142 MMOL/L (135-145); TOTAL PROTEIN 6.9 GM/DL (6.4-8.2)
== END 2019-09-04 | disposition home or self-care (01) ==
LOC: ONC 09:11
PROVIDERS: ATTEND Internal Medicine Hematology & Oncology
DX: D48.1 Neoplasm of uncertain behavior of connective and other soft tissue (principal); Z86.39 Personal history of other endocrine, nutritional and metabolic disease
CPT/HCPCS: 80053; 84443; 85025; 99213

== ENCOUNTER → 2019-06-10 | Outpatient (CLI) | payer OTHER ==
[~2019-06-10] MED LIST changes: +ONDA4TAB11 PO; +SIMV20TA26 PO; -SIMV20TA3 PO
--- NOTE | 2019-06-10 11:02 | Diagnostic Imaging Report ---
INDICATION: Preop for knee replacement surgery. TECHNIQUE/COMPARISON: PA and lateral films of the chest were obtained at 10:49 AM and compared to 03/30/2019. FINDINGS: The heart and mediastinal silhouette are normal in appearance. The lungs show no focal infiltrate. There is no pneumothorax or pleural fluid. There is a stable calcified granuloma over the right apex. IMPRESSION: No acute process in the chest. Dictated by: Dictated on workstation # [id number]
== END ==
LOC: CARD 10:33
PROVIDERS: ATTEND Nurse Practitioner Family
DX: Z01.810 Encounter for preprocedural cardiovascular examination (principal); Z01.811 Encounter for preprocedural respiratory examination; M79.604 Pain in right leg
CPT/HCPCS: 71046; 93005

== ENCOUNTER → 2019-06-18 | Outpatient (CLI) | payer MEDICARE, OTHER ==
--- NOTE | 2019-06-18 11:07 | Diagnostic Imaging Report ---
INDICATION: Screening The current study was also evaluated with a Computer Aided Detection (CAD) system. 3-D Tomographic imaging was also performed. Comparison made with prior examination of 06/04/2018, 11/16/2016, 10/14/2015 FINDINGS: There are scattered fibroglandular densities bilaterally. There is no dominant mass, spiculated lesion or suspicious calcification identified. Skin and nipples and axilla are unremarkable. IMPRESSION: Category 1, negative. ACR BI-RADS Category 1: Negative. Result letter will be mailed to the patient. Note: At least 10% of breast cancer is not imaged by mammography. Dictated by: Dictated on workstation # [id number]
== END ==
LOC: RAD 09:31
PROVIDERS: ATTEND Nurse Practitioner Family
DX: Z12.31 Encounter for screening mammogram for malignant neoplasm of breast (principal)
CPT/HCPCS: 77067

== ENCOUNTER → 2019-06-27 | Outpatient (CLI) | payer OTHER ==
[2019-06-27 14:12] LABS: BASOPHILS % (AUTO) 0 % (0-10); EOSINOPHILS # (AUTO) 0.2 10^3/uL (0.0-0.3); EOSINOPHILS % (AUTO) 4 % (0-10); HEMATOCRIT 43 % (35-52); HEMOGLOBIN 13.7 G/DL (11.5-16.0); LYMPHOCYTES % (AUTO) 32 % (12-44); MEAN CORPUSCULAR HEMOGLOBIN 29 PG (25-34); MEAN CORPUSCULAR HGB CONC 32 G/DL (32-36); MEAN CORPUSCULAR VOLUME 90 FL (80-99); MEAN PLATELET VOLUME 9.8 FL (7.4-10.4); MONOCYTES # (AUTO) 0.5 X 10^3 (0.0-1.0); MONOCYTES % (AUTO) 8 % (0-12); NEUTROPHILS # (AUTO) 3.4 X 10^3 (1.8-7.8); NEUTROPHILS % (AUTO) 56 % (42-75); PLATELET COUNT 240 10^3/uL (130-400); RED CELL DISTRIBUTION WIDTH 15.3 % (10.0-14.5); WHITE BLOOD COUNT 6.1 10^3/uL (4.3-11.0)
[2019-06-27 14:21] LABS: BILIRUBIN,URINE NEGATIVE (NEGATIVE); CLARITY,URINE CLEAR; COLOR,URINE YELLOW; GLUCOSE, URINE (UA) NEGATIVE (NEGATIVE); KETONES,URINE NEGATIVE (NEGATIVE); LEUKOCYTE ESTERASE ,URINE TRACE (NEGATIVE); NITRITE,URINE NEGATIVE (NEGATIVE); PROTEIN,URINE NEGATIVE (NEGATIVE)
[2019-06-27 14:24] LABS: INR 0.9 (0.8-1.4); PROTHROMBIN TIME PATIENT 12.3 SEC (12.2-14.7)
[2019-06-27 14:29] LABS: BUN/CREATININE RATIO 22; CARBON DIOXIDE 28 MMOL/L (21-32); CHLORIDE 107 MMOL/L (98-107); CREATININE SERUM 0.83 MG/DL (0.60-1.30); POTASSIUM 4.2 MMOL/L (3.6-5.0); SODIUM 142 MMOL/L (135-145)
[2019-06-27 14:30] LABS: BACTERIA,URINE FEW /HPF
[2019-06-27 14:30] LABS: ALANINE AMINOTRANSFERASE 19 U/L (0-55); ALBUMIN 4.2 GM/DL (3.2-4.5); ALKALINE PHOSPHATASE 67 U/L (40-136); BILIRUBIN,TOTAL 0.4 MG/DL (0.1-1.0); CALCIUM 9.2 MG/DL (8.5-10.1); GFR ESTIMATED > 60; GLUCOSE 106 MG/DL (70-105)
[2019-06-27 14:33] LABS: ERYTHROCYTE SEDIMENTATION RATE 16 MM/HR (0-30)
== END ==
LOC: LAB 13:53
PROVIDERS: ATTEND Orthopaedic Surgery Sports Medicine
DX: M79.604 Pain in right leg (principal)
CPT/HCPCS: 36415; 80053; 81000; 85025; 85610; 85652; 85730; 87088

== ENCOUNTER 2019-09-03 13:54 | Outpatient (RCR) | payer MEDICARE, OTHER | END 2019-09-25 | disposition home or self-care (01) | PROVIDERS: ATTEND Orthopaedic Surgery Sports Medicine | DX: M17.11 Unilateral primary osteoarthritis, right knee (principal) ==

== ENCOUNTER 2019-09-09 10:03 | Outpatient (CLI) | payer MEDICARE, OTHER ==
[2019-09-09 10:10] VITALS: BP 164/81
[2019-09-09] MEDS ORDERED: DENOSUMAB 60 MG/1 ML (PROLIA) SQ SCH (10:45)
== END 2019-09-09 10:49 | disposition home or self-care (01) ==
LOC: SDC 10:03
PROVIDERS: ATTEND Nurse Practitioner Family
DX: M80.80XA Other osteoporosis with current pathological fracture, unspecified site, initial encounter for fracture (principal)
CPT/HCPCS: 96372

== ENCOUNTER → 2019-12-20 | Outpatient (CLI) | payer MEDICARE, OTHER | LOC: LAB 14:09 | PROVIDERS: ATTEND Surgery | DX: R19.7 Diarrhea, unspecified (principal); R10.9 Unspecified abdominal pain ==

== ENCOUNTER 2020-01-13 05:40 | Outpatient (CLI) | payer MEDICARE, OTHER ==
[~2020-01-13] VITALS: Ht 162 cm; Wt 70.4 kg
[2020-01-13] MEDS ORDERED: ZINC50TA11 PO (09:59)
[2020-01-13] MEDS ORDERED: CHOL500044 PO (09:59)
[2020-01-13] MEDS ORDERED: VITA1CAP PO (09:59)
== END 2020-01-13 10:03 | disposition home or self-care (01) ==
LOC: PREOP 05:40
PROVIDERS: ATTEND Surgery
DX: Z01.818 Encounter for other preprocedural examination (principal)

== ENCOUNTER 2020-01-20 07:47 | Day surgery (SDC) | payer MEDICARE, OTHER ==
[~2020-01-20] VITALS: Ht 162 cm; Wt 70.4 kg
[~2020-01-20 07:47] MED LIST changes: +CHOL500044 PO; +VITA1CAP PO; +ZINC50TA11 PO
[2020-01-20] MEDS ORDERED: LACTATED RINGERS 1,000 ML IV ONE (07:56)
[2020-01-20] MEDS ORDERED: LACTATED RINGERS 1,000 ML IV STA (08:04)
[2020-01-20 08:05] VITALS: BP 145/81
[2020-01-20] MEDS ORDERED: PROPOFOL INJECTION 50 ML IV ONE (09:02)
[2020-01-20] MEDS ORDERED: MIDAZOLAM 2 MG/2 ML (VERSED) VIAL ONE (09:02)
--- NOTE | 2020-01-20 09:30 | Progress Note-Post Operative ---
Post-Operative Progess Note Surgeon (s)/Pancake Professional (s) Surgeon MARTA DIMAS DO Pancake Professional: SHERIF Noble Pre-Operative Diagnosis Hx of polyps Post-Operative Diagnosis Polyp Diverticula int hemorrhoids Procedure & Operative Findings Date of Procedure 01/20/20 Procedure Performed/Findings Colon with bx Anesthesia Type IV sedation by MANAGER BRANCH Estimated Blood Loss Estimated blood loss (mL): scant Specimens/Packing Specimens Removed transverse colon polyp MARTA DIMAS DO Jan 20, 2020 09:30
--- NOTE | 2020-01-20 09:30 | Endoscopy Discharge Instruct ---
Endo Procedure/Findings Findings 1.: Polyp 2.: Diverticulosis 3.: Internal Hemorrhoids Discharge Instructions - Activity: You might feel a little sleepy until tomorrow. This is due to the medicine you received to relax you. Until tomorrow, you should: NOT drive a car, operate machinery or power tools. NOT drink any alcoholic beverages. NOT make any important decisions or sign importortant papers. Do not return to work until tomorrow, unless otherwise instructed. Resume previous activities tomorrow. Diet: Start by taking liquids. If you tolerate liquids, advance to solid food. 1.: Colonscopy in 3 years Notify Physician - If you experience excessive bleeding, unusual abdominal pain, fever, or chest pain, contact your doctor immediately. MARTA DIMAS DO Jan 20, 2020 09:30
[2020-01-20 09:33] VITALS: BP 106/57
[2020-01-20 09:38] VITALS: BP 113/57
[2020-01-20 09:40] VITALS: BP 143/79
[2020-01-20 10:10] VITALS: BP 139/73
[2020-01-20 10:20] VITALS: BP 139/73
--- NOTE | 2020-01-20 10:22 | Anesthesia-General Post-Op ---
MAC Patient Condition Mental Status/LOC: Same as Preop Cardiovascular: Satisfactory Nausea/Vomiting: Absent Respiratory: Satisfactory Pain: Controlled Complications: Absent Post Op Complications Complications None Follow Up Care/Instructions Patient Instructions None needed. Anesthesiology Discharge Order Discharge Order Patient is doing well, no complaints, stable vital signs, no apparent adverse anesthesia problems. No complications reported per nursing. TETE MENARD CRNA Jan 20, 2020 10:22
--- NOTE | 2020-01-21 03:00 | OPERATIVE REPORT ---
DATE OF SERVICE: 01/20/2020 PREOPERATIVE DIAGNOSES: Rectal bleed, history of polyps. POSTOPERATIVE DIAGNOSES: Colon polyps, diverticula, internal hemorrhoids. PROCEDURE: Colonoscopy with biopsy. SURGEON: Santana Raya DO MECHANICAL ESTIMATOR: Claritza Vincent MS3 ANESTHESIA: IV sedation by the CONVALESCENT SITTER. SPECIMEN: Colon polyp removed from the transverse colon. BLOOD LOSS: Scant. FLUIDS: Per anesthesia. POSTOPERATIVE CONDITION: Stable. INDICATION FOR PROCEDURE: The patient is a 74-year-old female who had a history of polyps, had history of colon resection and she is having some rectal bleeding, needed a workup. FINDINGS: The patient had multiple diverticula and she had one small polyp in the transverse colon as well as some internal hemorrhoids. PROCEDURE NOTE: After informed consent was obtained, the patient was brought to the endoscopy suite, placed in bed in left lateral decubitus position. She was administered IV sedation by the CONVALESCENT SITTER who then monitored her vitals the entire time, heart rate, blood pressure and pulse ox and the scope was inserted, pushed all the way into about 100 cm, able to get to the anastomosis of the colon and the small intestine. On the way in, noted diverticula, took a picture, took a picture of the end of the colon, actually see the staple line and then slowly withdrew the scope, insufflating to look the circumferential fernandez. I believe it was probably transverse colon, saw small flat polyp, I elected to do a biopsy, able to remove this polyp to be sent to pathology, then continued down to the splenic flexure, into the descending colon down into the sigmoid and finally into the rectum, retroflexed in rectal vault, saw some minimal internal hemorrhoids, took a picture of this and then removed the scope. The patient tolerated the procedure. She was recovered in endoscopy suite. Job ID: [id number] DocumentID: [id number] Dictated Date: 01/20/2020 16:10:34 Sack Filler Date: 01/21/2020 02:59:44 Dictated By: SANTANA RAYA DO
== END 2020-01-20 10:20 | disposition home or self-care (01) ==
LOC: ENDO 07:47
PROVIDERS: ATTEND Surgery
DX: D12.3 Benign neoplasm of transverse colon (principal); K57.90 Diverticulosis of intestine, part unspecified, without perforation or abscess without bleeding; K64.8 Other hemorrhoids; E78.5 Hyperlipidemia, unspecified; J45.909 Unspecified asthma, uncomplicated; M19.91 Primary osteoarthritis, unspecified site; F03.90 Unspecified dementia, unspecified severity, without behavioral disturbance, psychotic disturbance, mood disturbance, and anxiety; K44.9 Diaphragmatic hernia without obstruction or gangrene; K21.9 Gastro-esophageal reflux disease without esophagitis; Z85.828 Personal history of other malignant neoplasm of skin; Z87.11 Personal history of peptic ulcer disease; Z86.010 Personal history of colon polyps; Z79.899 Other long term (current) drug therapy; Z88.8 Allergy status to other drugs, medicaments and biological substances; Z88.2 Allergy status to sulfonamides; Z88.0 Allergy status to penicillin; Z92.21 Personal history of antineoplastic chemotherapy
CPT/HCPCS: 88305

== ENCOUNTER → 2020-03-06 | Outpatient (CLI) | payer MEDICARE, OTHER ==
--- NOTE | 2020-03-06 11:28 | Diagnostic Imaging Report ---
INDICATION: Neck pain. TIME OF EXAM: 10:34 AM FINDINGS: 3 views cervical spine demonstrate normal curvature and alignment apart from minimal anterolisthesis of C4 on C5 and C5 on C6. There is generalized degenerative disc disease with variable disc space narrowing and marginal spurring. There is also multilevel facet arthropathy. Odontoid is intact. No fractures are seen. Prevertebral tissues are normal. IMPRESSION: Cervical spondylosis. No acute bony abnormality is detected. Dictated by: Dictated on workstation # [id number]
== END ==
LOC: RAD 10:23
PROVIDERS: ATTEND Nurse Practitioner Family
DX: M47.812 Spondylosis without myelopathy or radiculopathy, cervical region (principal)
CPT/HCPCS: 72040

== ENCOUNTER 2020-03-11 14:33 | Outpatient (CLI) | payer MEDICARE, OTHER ==
[~2020-03-11] VITALS: Ht 162 cm; Wt 70.4 kg
[2020-03-11] MEDS ORDERED: DENOSUMAB 60 MG/1 ML (PROLIA) SQ SCH (15:00)
[2020-03-11 15:15] VITALS: BP 137/72
== END 2020-03-11 15:15 | disposition home or self-care (01) ==
LOC: SDC 14:33
PROVIDERS: ATTEND Nurse Practitioner Family
DX: M81.0 Age-related osteoporosis without current pathological fracture (principal)
CPT/HCPCS: 96372

== ENCOUNTER 2020-04-15 14:36 | Emergency (ER) | payer OTHER, MEDICARE ==
[~2020-04-15] VITALS: Ht 162 cm; Wt 69.0 kg
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
--- NOTE | 2020-04-15 15:32 | Diagnostic Imaging Report ---
Indication: Back pain. Compared with lumbar spine MRI performed 01/10/2019. Trace anterolisthesis L4 on L5 of about 1 to 2 mm unchanged. Lumbar statures are stable. The remaining levels are aligned anatomically. No acute appearing endplate irregularity. There are anterior osteophytes off the upper lumbar spine, not obviously changed. No acute finding. Impression: When correlated with previous MRI no acute finding or change apparent. Dictated by: Dictated on workstation # [id number]
[2020-04-15 15:39] LABS: HEMOGLOBIN 13.6 g/dL (11.5-16.0); MEAN PLATELET VOLUME 9.3 fL (9.0-12.2); WHITE BLOOD COUNT 7.7 10^3/uL (4.3-11.0)
[2020-04-15 15:50] LABS: BILIRUBIN,URINE NEGATIVE (NEGATIVE); CLARITY,URINE CLEAR; COLOR,URINE YELLOW; GLUCOSE, URINE (UA) NEGATIVE (NEGATIVE); KETONES,URINE NEGATIVE (NEGATIVE); LEUKOCYTE ESTERASE ,URINE 1+ (NEGATIVE); NITRITE,URINE NEGATIVE (NEGATIVE); PH,URINE 5.5 (5-9); PROTEIN,URINE NEGATIVE (NEGATIVE)
[2020-04-15 15:53] LABS: CHLORIDE 106 MMOL/L (98-107); POTASSIUM 4.2 MMOL/L (3.6-5.0); SODIUM 138 MMOL/L (135-145)
[2020-04-15 15:54] LABS: CALCIUM 9.4 MG/DL (8.5-10.1)
[2020-04-15 15:55] LABS: GLUCOSE 126 MG/DL (70-105)
[2020-04-15 15:56] LABS: CARBON DIOXIDE 27 MMOL/L (21-32)
[2020-04-15 15:59] LABS: BACTERIA,URINE TRACE /HPF; SQUAMOUS EPITHELIAL CELL,UR RARE /HPF; WBC,URINE 25-50 /HPF
[2020-04-15 15:59] LABS: CREATININE SERUM 0.82 MG/DL (0.60-1.30); GFR ESTIMATED > 60
[2020-04-15 16:00] LABS: BUN/CREATININE RATIO 13
--- NOTE | 2020-04-15 16:06 | NUR ---
RESTING IN BED ET DENIES NEEDS AT THIS TIME.
--- NOTE | 2020-04-15 16:10 | NUR ---
C-COLLAR REMOVED BY
[2020-04-15] MEDS ORDERED: NITR-65 PO (16:14)
[2020-04-15 16:24] VITALS: BP 137/71
== END 2020-04-15 16:24 | disposition home or self-care (01) ==
LOC: EDUNIT# 14:36 → ER 14:38
DX: M54.2 Cervicalgia (principal); M54.9 Dorsalgia, unspecified; N39.0 Urinary tract infection, site not specified; E78.00 Pure hypercholesterolemia, unspecified; Z85.828 Personal history of other malignant neoplasm of skin; Z82.61 Family history of arthritis; Z80.9 Family history of malignant neoplasm, unspecified; Z83.3 Family history of diabetes mellitus; Z82.49 Family history of ischemic heart disease and other diseases of the circulatory system; Z88.2 Allergy status to sulfonamides; Z88.0 Allergy status to penicillin; Z88.1 Allergy status to other antibiotic agents
CPT/HCPCS: 70450; 72070; 72100; 72125; 80048; 81000; 85027; 87088; 99283; L0150; 36415

== ENCOUNTER 2020-06-24 14:00 | Outpatient (RCR) | payer MEDICARE, OTHER ==
[~2020-06-24 14:00] MED LIST changes: -CIPR500T4 PO; +CIPR500T5 PO
[2020-06-24 14:13] LABS: BASOPHILS % (AUTO) 1 % (0-10); EOSINOPHILS # (AUTO) 0.2 10^3/uL (0.0-0.3); EOSINOPHILS % (AUTO) 4 % (0-10); HEMATOCRIT 41 % (35-52); HEMOGLOBIN 13.1 g/dL (11.5-16.0); LYMPHOCYTES # (AUTO) 2.3 10^3/uL (1.0-4.0); LYMPHOCYTES % (AUTO) 36 % (12-44); MEAN CORPUSCULAR HEMOGLOBIN 29 pg (25-34); MEAN CORPUSCULAR HGB CONC 32 g/dL (32-36); MEAN CORPUSCULAR VOLUME 92 fL (80-99); MEAN PLATELET VOLUME 9.7 fL (9.0-12.2); MONOCYTES # (AUTO) 0.5 10^3/uL (0.0-1.0); MONOCYTES % (AUTO) 8 % (0-12); NEUTROPHILS # (AUTO) 3.4 10^3/uL (1.8-7.8); NEUTROPHILS % (AUTO) 52 % (42-75); PLATELET COUNT 232 10^3/uL (130-400); WHITE BLOOD COUNT 6.5 10^3/uL (4.3-11.0)
[2020-06-24 14:39] LABS: ALANINE AMINOTRANSFERASE 24 U/L (0-55); ALBUMIN 3.9 GM/DL (3.2-4.5); ALKALINE PHOSPHATASE 64 U/L (40-136); BILIRUBIN,TOTAL 0.3 MG/DL (0.1-1.0); BUN/CREATININE RATIO 19; CARBON DIOXIDE 26 MMOL/L (21-32); CHLORIDE 107 MMOL/L (98-107); CREATININE SERUM 0.84 MG/DL (0.60-1.30); GFR ESTIMATED > 60; GLUCOSE 90 MG/DL (70-105); POTASSIUM 4.5 MMOL/L (3.6-5.0); SODIUM 141 MMOL/L (135-145); TOTAL PROTEIN 6.6 GM/DL (6.4-8.2)
[2020-06-25 09:35] LABS: MAGNESIUM 2.2 MG/DL (1.6-2.4)
== END 2020-09-22 | disposition home or self-care (01) ==
LOC: ONC 14:00
PROVIDERS: ATTEND Internal Medicine Hematology & Oncology
DX: D17.5 Benign lipomatous neoplasm of intra-abdominal organs (principal); D48.1 Neoplasm of uncertain behavior of connective and other soft tissue; E78.5 Hyperlipidemia, unspecified; Z86.39 Personal history of other endocrine, nutritional and metabolic disease
CPT/HCPCS: 80053; 83735; 85025; G0463; 99213

== ENCOUNTER → 2020-07-07 | Outpatient (CLI) | payer MEDICARE, OTHER ==
--- NOTE | 2020-07-07 09:17 | Diagnostic Imaging Report ---
HISTORY: Bilateral wrist pain. COMPARISON: 09/10/2018 TECHNIQUE: Three views of the right and left wrists. 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 There is remodeling of the articular surface of the distal radius. There is widening of the scapholunate interval. There are moderate degenerative changes at the base of the thumb. No fracture is seen. There is soft tissue swelling about the right wrist. Left wrist: There is also marked degenerative change in the left radiocarpal joint with complete joint space loss and sclerosis of the proximal pole of the scaphoid. There is remodeling of the articular surface of the distal radius. There is widening of the scapholunate interval. There are moderate degenerative changes in the base of the left thumb. There is a calcification in the region of the TFCC, may represent a joint body. There is soft tissue swelling about the left wrist. IMPRESSION: 1. 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 Dictated by: Dictated on workstation # [id number]
== END ==
LOC: RAD 07:29
PROVIDERS: ATTEND Nurse Practitioner Family
DX: M19.031 Primary osteoarthritis, right wrist (principal); M19.032 Primary osteoarthritis, left wrist

== ENCOUNTER → 2020-07-07 | Outpatient (CLI) | payer MEDICARE, OTHER ==
[~2020-07-07] MED LIST changes: +CATHETER FLUSH 10 ML SYR IV PRN; +HOLD METFORMIN - RECEIVED CONTRAST 20 ML VIAL IV SCH; +IOHEXOL 350 MG/ML 100 ML (OMNIPAQUE 350) VIAL IV ONE; +NS 100 ML (IVPB) BAG IV ONE
--- NOTE | 2020-07-07 08:25 | Diagnostic Imaging Report ---
EXAMINATION: CT Abdomen Pelvis with and without intravenous contrast. TECHNIQUE: Precontrast acquisitions were acquired through the abdomen and pelvis. Multiple contiguous axial images were obtained through the abdomen and pelvis after the administration of intravenous contrast. All CT scans use one or more of the following dose optimizing techniques: automated exposure control, MA and/or KvP adjustment based on a patient size and exam type, or iterative reconstruction. HISTORY: Neoplasm of soft tissue, desmoid tumor. COMPARISON: 06/04/2018 FINDINGS: Limited views of the lower thorax are unremarkable. The liver is normal without focal lesion. There is no biliary ductal dilation. Gallbladder is surgically absent. Pancreas is normal. Spleen is normal. Adrenal glands are normal. The kidneys are normal. There is no hydronephrosis. Urinary bladder is normal. Visualized bowel is normal in caliber without obstruction or inflammation. There is diverticulosis without diverticulitis. There is no evidence of recurrent mesenteric mass. A suture line is seen in the left lower quadrant small bowel. No free fluid or air. No abdominal or pelvic lymphadenopathy. Aorta is normal in caliber without aneurysm. There are no suspicious osseous lesions. IMPRESSION: 1. Postsurgical changes of desmoid tumor resection without evidence for local recurrence. Dictated by: Dictated on workstation # [id number]
--- NOTE | 2020-07-07 12:18 | Diagnostic Imaging Report ---
INDICATION: Routine screening. COMPARISON: 06/18/2019 and 06/04/2018. TECHNIQUE: 2D and 3D bilateral screening mammography was performed with CAD. FINDINGS: Scattered fibroglandular densities are identified bilaterally. The parenchymal pattern is stable. No mass or malignant appearing microcalcifications are seen. The axillae are unremarkable. IMPRESSION: No mammographic features suspicious for malignancy are identified. ACR BI-RADS Category 1: Negative. Result letter will be mailed to the patient. Note: At least 10% of breast cancer is not imaged by mammography. Dictated by: Dictated on workstation # [id number]
== END ==
LOC: RAD 08:15
PROVIDERS: ATTEND Nurse Practitioner Adult Health
DX: Z12.31 Encounter for screening mammogram for malignant neoplasm of breast (principal); D48.1 Neoplasm of uncertain behavior of connective and other soft tissue
CPT/HCPCS: 74178; 77063; 77067

== ENCOUNTER → 2020-09-08 | Outpatient (CLI) | payer MEDICARE, OTHER ==
[~2020-09-08] MED LIST changes: -CATHETER FLUSH 10 ML SYR IV PRN; +DENOSUMAB 60 MG/1 ML (PROLIA) SQ SCH; -HOLD METFORMIN - RECEIVED CONTRAST 20 ML VIAL IV SCH; -IOHEXOL 350 MG/ML 100 ML (OMNIPAQUE 350) VIAL IV ONE; -NS 100 ML (IVPB) BAG IV ONE
[2020-09-08 12:35] VITALS: BP 144/81
== END ==
LOC: SDC 12:14
PROVIDERS: ATTEND Nurse Practitioner Family
DX: M81.0 Age-related osteoporosis without current pathological fracture (principal)
CPT/HCPCS: 96372

== ENCOUNTER → 2021-06-29 | Outpatient (CLI) | payer MEDICARE, OTHER ==
[~2021-06-29] MED LIST changes: -DENOSUMAB 60 MG/1 ML (PROLIA) SQ SCH; -POTA99TA21 PO; +POTA99TA26 PO
[2021-06-29 10:09] LABS: BASOPHILS % (AUTO) 1 % (0-10); EOSINOPHILS # (AUTO) 0.3 10^3/uL (0.0-0.3); EOSINOPHILS % (AUTO) 4 % (0-10); HEMATOCRIT 44 % (35-52); HEMOGLOBIN 13.7 g/dL (11.5-16.0); LYMPHOCYTES # (AUTO) 2.3 10^3/uL (1.0-4.0); LYMPHOCYTES % (AUTO) 31 % (12-44); MEAN CORPUSCULAR HEMOGLOBIN 29 pg (25-34); MEAN CORPUSCULAR HGB CONC 31 g/dL (32-36); MEAN CORPUSCULAR VOLUME 94 fL (80-99); MEAN PLATELET VOLUME 9.4 fL (9.0-12.2); MONOCYTES # (AUTO) 0.7 10^3/uL (0.0-1.0); MONOCYTES % (AUTO) 9 % (0-12); NEUTROPHILS # (AUTO) 4.2 10^3/uL (1.8-7.8); NEUTROPHILS % (AUTO) 55 % (42-75); PLATELET COUNT 294 10^3/uL (130-400); WHITE BLOOD COUNT 7.6 10^3/uL (4.3-11.0)
[2021-06-29 10:27] LABS: ALBUMIN 4.1 GM/DL (3.2-4.5); BILIRUBIN,TOTAL 0.4 MG/DL (0.1-1.0); CALCIUM 9.6 MG/DL (8.5-10.1); CREATININE SERUM 0.82 MG/DL (0.60-1.30); POTASSIUM 4.7 MMOL/L (3.6-5.0); TOTAL PROTEIN 6.8 GM/DL (6.4-8.2)
== END ==
LOC: EDSTATUS 09-23 11:47 → ONC 09:55
PROVIDERS: ATTEND Internal Medicine Hematology & Oncology
DX: Z45.2 Encounter for adjustment and management of vascular access device (principal); D48.1 Neoplasm of uncertain behavior of connective and other soft tissue
CPT/HCPCS: 80053; 85025; G0463; 36415; 99213

== ENCOUNTER → 2021-07-27 | Outpatient (CLI) | payer MEDICARE, OTHER ==
--- NOTE | 2021-07-27 15:30 | Diagnostic Imaging Report ---
INDICATION: Routine screening. COMPARISON: 07/07/2020 and 06/18/2019. TECHNIQUE: 2D and 3D bilateral screening mammography was performed with CAD. FINDINGS: Scattered fibroglandular densities are identified bilaterally. No mass or malignant-appearing microcalcifications are seen. The axillae are unremarkable. IMPRESSION: No mammographic features suspicious for malignancy are identified. ACR BI-RADS Category 1: Negative. Result letter will be mailed to the patient. Note: At least 10% of breast cancer is not imaged by mammography. Dictated by: Dictated on workstation # [id number]
--- NOTE | 2021-07-27 17:56 | Diagnostic Imaging Report ---
INDICATION: 76-year-old female, postmenopausal. Screening for osteoporosis. COMPARISON: February 05, 2019. FINDINGS: AP Spine L1-L4: [BMD (g/cm2): 0.927] [T-Score: -2.3] [Z-Score: -0.8] [BMD Previous: 1.035] [BMD % Change: -10.4] LT Hip Neck: [BMD (g/cm2): 0.693] [T-Score: -2.5] [Z-Score: -0.8] LT Hip Total: [BMD (g/cm2):0.801] [T-Score:-1.6] [Z-Score: -0.1] [BMD Previous: 0.785] [BMD % Change: 2.0] RT Hip Neck: [BMD (g/cm2):0.695] [T-Score:-2.5] [Z-Score:-0.8] RT Hip Total: [BMD (g/cm2):0.774] [T-score:-1.9] [Z-Score:-0.4] [BMD Previous:0.754] [BMD % Change:2.7] *Indicates significant change from prior examination based on 95% confidence level. World Health Organization criteria for BMD interpretation classify patients as Normal (T-score at or above -1.0), Osteopenic (T-score between -1.0 and -2.5) or Osteoporotic (T-score at or below -2.5). LIMITATIONS AND MODIFICATION: None. FRACTURE RISK (FRAX SCORE): The ten year probability of (%): Major Osteoporotic Fracture: [16.2] Hip Fracture: [5.0] IMPRESSION: 1. Osteoporosis. 2. No significant change in bone mineral density since prior examination. 3. See below National Osteoporosis Foundation guidelines on when to potentially initiate pharmacologic therapy. Based on the National Osteoporosis Foundation Guidelines, pharmacologic treatment should be initiated in any of the following, unless clinical conditions suggest otherwise: * Any patient with prior fragility fracture of the hip or vertebrae. A spine fracture indicates 5X risk for subsequent spine fracture and 2X risk for subsequent hip fracture. * Osteoporosis (T-score <-2.5). * Postmenopausal women and men age 50 and older with low bone mass/osteopenia (T-score between -1.0 and -2.5) by DXA and 10-year major osteoporotic fracture greater than 20% or a 10-year probability of hip fracture greater than 3%. These fracture risks are supplied above in the FRAX score, if applicable. * Clinician judgement and/or patient preferences may indicate treatment for people with 10-year fracture probabilities above or below these levels. Dictated by: Dictated on workstation # [id number]
== END ==
LOC: RAD 14:03
PROVIDERS: ATTEND Nurse Practitioner Family
DX: Z12.31 Encounter for screening mammogram for malignant neoplasm of breast (principal); Z13.820 Encounter for screening for osteoporosis; M81.0 Age-related osteoporosis without current pathological fracture; Z78.0 Asymptomatic menopausal state
CPT/HCPCS: 77063; 77067; 77080

== ENCOUNTER → 2021-07-29 | Outpatient (CLI) | payer MEDICARE, OTHER ==
[~2021-07-29] MED LIST changes: +DENOSUMAB 60 MG/1 ML (PROLIA) SQ SCH
[2021-07-29 10:56] VITALS: BP 132/92
== END ==
LOC: SDC 10:31
PROVIDERS: ATTEND Nurse Practitioner Family
DX: M81.0 Age-related osteoporosis without current pathological fracture (principal)
CPT/HCPCS: 96372

== ENCOUNTER 2021-08-05 05:38 | Outpatient (CLI) | payer MEDICARE, OTHER ==
[~2021-08-05] VITALS: Ht 162.6 cm; Wt 69.0 kg
[~2021-08-05 05:38] MED LIST changes: -DENOSUMAB 60 MG/1 ML (PROLIA) SQ SCH
[2021-08-10] MEDS ORDERED: CEFD300C3 PO (11:25)
[2021-08-10] MEDS ORDERED: PRD20T PO (11:25)
[2021-08-10] MEDS ORDERED: OXYB-52 PO (11:25)
[2021-08-10] MEDS ORDERED: CHOL210P2 PO (11:25)
[2021-08-10] MEDS ORDERED: MAGN100T5 PO (11:25)
[2021-08-10] MEDS ORDERED: [UNRECOGNIZED DRUG - CODE] PO (11:25)
[2021-08-10] MEDS ORDERED: DOXY100C5 PO (11:25)
== END 2021-08-10 13:25 | disposition home or self-care (01) ==
LOC: PREOP 05:38
PROVIDERS: ATTEND Surgery
DX: Z01.818 Encounter for other preprocedural examination (principal)

== ENCOUNTER 2021-08-16 08:20 | Day surgery (SDC) | payer MEDICARE, OTHER ==
[~2021-08-16] VITALS: Ht 163 cm; Wt 69.0 kg
[~2021-08-16 08:20] MED LIST changes: +CEFD300C3 PO; +CHOL210P2 PO; +DOXY100C5 PO; +MAGN100T5 PO; +OXYB-52 PO; +PRD20T PO; +[UNRECOGNIZED DRUG - CODE] PO
[2021-08-16] MEDS ORDERED: LACTATED RINGERS 1,000 ML IV STA (08:22)
[2021-08-16] MEDS ORDERED: LACTATED RINGERS 1,000 ML IV ONE (08:28)
[2021-08-16] MEDS ORDERED: HURRICAINE EXT TUBE (BENZOCAINE) XX PRN (08:30)
[2021-08-16] MEDS ORDERED: proPOfol 200 MG/20 ML (DIPRIVAN) VIAL IV ONE (08:33)
[2021-08-16 08:35] VITALS: BP 157/90
--- NOTE | 2021-08-16 08:36 | Progress Note-Pre Operative ---
Pre-Operative Progress Note H&P Reviewed The H&P was reviewed, patient examined and no changes noted. Time Seen by Provider: 08:34 Date H&P Reviewed: Aug 16, 2021 Time H&P Reviewed: 08:34 Pre-Operative Diagnosis: Hx of Gastric ulcers, Epigastric pain MARTA DIMAS DO Aug 16, 2021 08:36
[2021-08-16] MEDS ORDERED: HURRICAINE EXT TUBE (BENZOCAINE) ONE (09:00)
[2021-08-16 09:46] VITALS: BP 126/69
--- NOTE | 2021-08-16 09:46 | Progress Note-Post Operative ---
Post-Operative Progess Note Surgeon (s)/Spray Mixer (s) Surgeon MARTA DIMAS DO Spray Mixer: none Pre-Operative Diagnosis Hx of Gastric ulcers, Epigastric pain Post-Operative Diagnosis Gastritis Hiatal Hernia Esophagitis Procedure & Operative Findings Date of Procedure 08/16/21 Procedure Performed/Findings EGD with bx PROCEDURE NOTE: After informed consent was obtained, the patient was brought to the endoscopy suite, placed in bed in left lateral decubitus position. She was administered IV sedation by the HUMAN RESOURCES PARTNER who then monitored vitals the entire time, heart rate, blood pressure and pulse ox and the scope was inserted down the mouth through the esophagus into the stomach. On the way down, noted some mild esophagitis, took a picture, pushed into the stomach, pushed past the antrum into the duodenum. Duodenum looked good. Pulled back and did a biopsy of antrum, then retroflexed the scope, saw small hiatal hernia, took a picture of this and then pulled the scope into the GE junction, took another picture of the esophagitis and then did a biopsy of the GE junction. Pushed the scope back into the stomach, suctioned all the air out of the stomach. At this point pulled the scope up the esophagus and out the mouth. The patient tolerated the procedure, and she recovered in endoscopy suite. Anesthesia Type IV sedation by anesthesia Estimated Blood Loss Estimated blood loss (mL): scant Specimens/Packing Specimens Removed antral bx GE jxn bx MARTA DIMAS DO Aug 16, 2021 09:46
--- NOTE | 2021-08-16 09:47 | Endoscopy Discharge Instruct ---
Endo Procedure/Findings Findings 1.: Gastritis 2.: Hiatal Hernia 3.: Other Findings (Esophagitis) Discharge Instructions - Activity: You might feel a little sleepy until tomorrow. This is due to the medicine you received to relax you. Until tomorrow, you should: NOT drive a car, operate machinery or power tools. NOT drink any alcoholic beverages. NOT make any important decisions or sign importortant papers. Do not return to work until tomorrow, unless otherwise instructed. Resume previous activities tomorrow. Diet: Start by taking liquids. If you tolerate liquids, advance to solid food. 1.: EGD in 3 years Notify Physician - If you experience excessive bleeding, unusual abdominal pain, fever, or chest pain, contact your doctor immediately. MARTA DIMAS DO Aug 16, 2021 09:47
[2021-08-16 09:50] VITALS: BP 140/89
[2021-08-16 10:33] VITALS: BP 135/75
--- NOTE | 2021-08-16 14:13 | Anesthesia-General Post-Op ---
MAC Patient Condition Mental Status/LOC: Same as Preop Cardiovascular: Satisfactory Nausea/Vomiting: Absent Respiratory: Satisfactory Pain: Controlled Complications: Absent Post Op Complications Complications None Follow Up Care/Instructions Patient Instructions None needed. Anesthesiology Discharge Order Discharge Order Patient was doing well this morning after the procedure with no complaints, stable vital signs, no apparent adverse anesthesia problems. KUSHAL ARCHULETA DO Aug 16, 2021 14:13
== END 2021-08-16 10:30 | disposition home or self-care (01) ==
LOC: ENDO 08:20
PROVIDERS: ATTEND Surgery
DX: K29.50 Unspecified chronic gastritis without bleeding (principal); K44.9 Diaphragmatic hernia without obstruction or gangrene; K21.00 Gastro-esophageal reflux disease with esophagitis, without bleeding; Z79.52 Long term (current) use of systemic steroids

== ENCOUNTER → 2022-02-09 | Outpatient (CLI) | payer MEDICARE, OTHER ==
[~2022-02-09] VITALS: Ht 157 cm; Wt 70.0 kg
[~2022-02-09] MED LIST changes: +DENOSUMAB 60 MG/1 ML (PROLIA) SQ ONE
[2022-02-09 13:30] VITALS: BP 138/74
== END ==
LOC: SDC 12:49
PROVIDERS: ATTEND Nurse Practitioner Family
DX: M81.0 Age-related osteoporosis without current pathological fracture (principal)
CPT/HCPCS: 96372

== ENCOUNTER 2022-02-23 08:37 | Outpatient (RCR) | payer MEDICARE, OTHER ==
[~2022-02-23 08:37] MED LIST changes: -DENOSUMAB 60 MG/1 ML (PROLIA) SQ ONE
== END 2022-02-28 | disposition home or self-care (01) ==
PROVIDERS: ATTEND Orthopaedic Surgery
DX: M75.102 Unspecified rotator cuff tear or rupture of left shoulder, not specified as traumatic (principal); M75.101 Unspecified rotator cuff tear or rupture of right shoulder, not specified as traumatic; J45.909 Unspecified asthma, uncomplicated

== ENCOUNTER 2022-03-23 09:57 | Outpatient (RCR) | payer MEDICARE, OTHER | END 2022-03-23 10:48 | disposition home or self-care (01) | PROVIDERS: ATTEND Orthopaedic Surgery | DX: M75.101 Unspecified rotator cuff tear or rupture of right shoulder, not specified as traumatic (principal); M75.102 Unspecified rotator cuff tear or rupture of left shoulder, not specified as traumatic; J45.909 Unspecified asthma, uncomplicated ==

== ENCOUNTER → 2022-07-28 | Outpatient (CLI) | payer MEDICARE, OTHER ==
--- NOTE | 2022-07-28 16:16 | Diagnostic Imaging Report ---
Indication: Routine screening. Comparison is made with prior mammograms from 07/27/2021 and 07/07/2020. 2-D and 3-D bilateral screening mammography was performed with CAD. Scattered fibroglandular densities are identified bilaterally. The parenchymal pattern is stable. No mass or malignant-appearing microcalcifications are seen. Axillae are unremarkable. IMPRESSION: BI-RADS Category 1 No mammographic features suspicious for malignancy are identified. ACR BI-RADS Category 1: Negative. Result letter will be mailed to the patient. Note: At least 10% of breast cancer is not imaged by mammography. Dictated by: Dictated on workstation # [id number]
== END ==
LOC: RAD 10:36
PROVIDERS: ATTEND Family Medicine
DX: Z12.31 Encounter for screening mammogram for malignant neoplasm of breast (principal)
CPT/HCPCS: 77063; 77067

== ENCOUNTER → 2022-09-14 | Outpatient (CLI) | payer MEDICARE ==
[~2022-09-14] VITALS: Ht 162 cm; Wt 70.0 kg
[~2022-09-14] MED LIST changes: +DENOSUMAB 60 MG/1 ML (PROLIA) SQ SCH
[2022-09-14 08:48] VITALS: BP 141/69
== END ==
LOC: SDC 08:17
PROVIDERS: ATTEND Nurse Practitioner Family
DX: M81.0 Age-related osteoporosis without current pathological fracture (principal)
CPT/HCPCS: 96372

== ENCOUNTER 2022-11-02 07:00 | Outpatient (CLI) | payer MEDICARE ==
[~2022-11-02] VITALS: Ht 162 cm; Wt 69.0 kg
[~2022-11-02 07:00] MED LIST changes: -DENOSUMAB 60 MG/1 ML (PROLIA) SQ SCH
[2022-11-04] MEDS ORDERED: SUCR1TAB PO (12:34)
[2022-11-04] MEDS ORDERED: MULT-1054 PO (12:34)
[2022-11-04] MEDS ORDERED: TURM500T PO (12:34)
[2022-11-04] MEDS ORDERED: POTA99CA PO (12:34)
[2022-11-04] MEDS ORDERED: VITA1CAP42 PO (12:34)
[2022-11-04] MEDS ORDERED: OMEP40CA6 PO (12:34)
== END 2022-11-04 12:40 | disposition home or self-care (01) ==
LOC: PREOP 07:00
PROVIDERS: ATTEND Surgery
DX: Z01.818 Encounter for other preprocedural examination (principal)

== ENCOUNTER 2022-11-07 09:43 | Day surgery (SDC) | payer MEDICARE ==
[~2022-11-07] VITALS: Ht 162 cm; Wt 69.0 kg
[~2022-11-07 09:43] MED LIST changes: +MULT-1054 PO; +OMEP40CA6 PO; +POTA99CA PO; +SUCR1TAB PO; +TURM500T PO; +VITA1CAP42 PO
[2022-11-07] MEDS ORDERED: LACTATED RINGERS 1,000 ML IV STA (10:25)
--- NOTE | 2022-11-07 10:28 | Progress Note-Pre Operative ---
Pre-Operative Progress Note Date of Available H&P: Oct 27, 2022 Date H&P Reviewed: Nov 07, 2022 Time H&P Reviewed: 10:26 History & Physical: H&P Reviewed, Patient Examed, No changes noted Pre-Operative Diagnosis: Chronic GERD, Hx of ulcer MARTA DIMAS DO Nov 07, 2022 10:28
[2022-11-07] MEDS ORDERED: HURRICAINE EXT TUBE (BENZOCAINE) XX PRN (10:30)
[2022-11-07 10:42] VITALS: BP 145/84
[2022-11-07] MEDS ORDERED: proPOfol 200 MG/20 ML (DIPRIVAN) VIAL IV ONE (11:32)
[2022-11-07] MEDS ORDERED: MIDAZOLAM 2 MG/2 ML (VERSED) VIAL ONE (11:33)
[2022-11-07 11:50] VITALS: BP 129/60
[2022-11-07 11:55] VITALS: BP_SYST 121; BP_SYST 126; BP_DIAS 59; BP_DIAS 67
--- NOTE | 2022-11-07 12:35 | Anesthesia-General Post-Op ---
MAC Patient Condition Mental Status/LOC: Same as Preop Cardiovascular: Satisfactory Nausea/Vomiting: Absent Respiratory: Satisfactory Pain: Controlled Complications: Absent Post Op Complications Complications None Follow Up Care/Instructions Patient Instructions None needed. Anesthesiology Discharge Order Discharge Order Patient is doing well, no complaints, stable vital signs, no apparent adverse anesthesia problems. No complications reported per nursing. NIRAJ ROJAS CRNA Nov 07, 2022 12:35
--- NOTE | 2022-11-07 12:40 | Progress Note-Post Operative ---
Post-Operative Progess Note Surgeon (s)/Back Filler Operator (s) Surgeon MARTA DIMAS DO Back Filler Operator: none Pre-Operative Diagnosis Chronic GERD, Hx of ulcer Post-Operative Diagnosis Esophagitis Gastritis Hiatal hernia Gastroparesis Procedure & Operative Findings Date of Procedure 11/07/22 Procedure Performed/Findings EGD with biopsy PROCEDURE NOTE: After informed consent was obtained, the patient was brought to the endoscopy suite, placed in bed in left lateral decubitus position. She was administered IV sedation by the DIVISION CHIEF who then monitored vitals the entire time, heart rate, blood pressure and pulse ox and the scope was inserted down the mouth through the esophagus into the stomach. On the way down, noted some moderate esophagitis, took a picture and pushed into the stomach. In the stomach I found a lot of retained food (I asked later and it correlated to what she ate last night). Pushed past the antrum into the duodenum; duodenum looked good. Pulled back and did a biopsy of the antrum, then retroflexed the scope, saw small hiatal hernia and took a picture of this. I then pulled the scope into the GE junction, took another picture of the hiatal hernia and then did a biopsy of the GE junction. I also took a picture of the food and some mild gastritis in the cardia. Pushed the scope back into the stomach, suctioned all the air out of the stomach. At this point pulled the scope up the esophagus and out the mouth. The patient tolerated the procedure, and she recovered in endoscopy suite. Anesthesia Type IV Sedation by DIVISION CHIEF Estimated Blood Loss Estimated blood loss (mL): scant Specimens/Packing Specimens Removed antral bx body of stomach bx GE jxn bx MARTA DIMAS DO Nov 07, 2022 12:40
--- NOTE | 2022-11-07 12:42 | Endoscopy Discharge Instruct ---
Endo Procedure/Findings Findings 1.: Gastritis 2.: Hiatal Hernia 3.: Perez's Esophagus 4.: Other Findings (Gastroparesis) Discharge Instructions - Activity: You might feel a little sleepy until tomorrow. This is due to the medicine you received to relax you. Until tomorrow, you should: NOT drive a car, operate machinery or power tools. NOT drink any alcoholic beverages. NOT make any important decisions or sign importortant papers. Do not return to work until tomorrow, unless otherwise instructed. Resume previous activities tomorrow. Diet: Start by taking liquids. If you tolerate liquids, advance to solid food. 1.: EGD in 1 year Notify Physician - If you experience excessive bleeding, unusual abdominal pain, fever, or chest pain, contact your doctor immediately. Follow-Up: Other Follow up in my office in one week. MARTA DIMAS DO Nov 07, 2022 12:41
[2022-11-07 13:00] VITALS: BP 121/59
== END 2022-11-07 13:00 | disposition home or self-care (01) ==
LOC: ENDO 09:43
PROVIDERS: ATTEND Surgery
DX: K21.00 Gastro-esophageal reflux disease with esophagitis, without bleeding (principal); K31.89 Other diseases of stomach and duodenum; K44.9 Diaphragmatic hernia without obstruction or gangrene; K31.84 Gastroparesis; K29.70 Gastritis, unspecified, without bleeding; Z87.11 Personal history of peptic ulcer disease; Z79.899 Other long term (current) drug therapy; Z85.820 Personal history of malignant melanoma of skin

== ENCOUNTER → 2022-12-13 | Outpatient (CLI) | payer MEDICARE ==
[~2022-12-13] MED LIST changes: +HOLD METFORMIN - RECEIVED CONTRAST 20 ML VIAL IV SCH; +IOHEXOL 350 MG/ML 100 ML (OMNIPAQUE 350) VIAL IV ONE; +NS 100 ML (IVPB) BAG IV ONE
[2022-12-13 07:14] LABS: CREATININE SERUM 0.8 MG/DL (0.60-1.30)
--- NOTE | 2022-12-13 08:46 | Diagnostic Imaging Report ---
EXAMINATION: CT chest, abdomen and pelvis with intravenous contrast. TECHNIQUE: Multiple contiguous axial images were obtained through the chest, abdomen and pelvis after the uneventful administration of intravenous contrast. All CT scans use one or more of the following dose optimizing techniques: automated exposure control, MA and/or KvP adjustment based on patient size and exam type or iterative reconstruction. HISTORY: Abdominal pain COMPARISON: 07/07/2020 FINDINGS: There is no edema or pneumonia. No pleural effusion. No pneumothorax. No suspicious nodules. There is mild dependent atelectasis. A few small pneumatoceles are present. There is no axillary or supraclavicular lymphadenopathy. There is no mediastinal lymphadenopathy. Heart size is normal. There are no coronary artery calcifications. No pericardial effusion. Aorta is normal in caliber. The liver is normal without focal lesion. There is no biliary ductal dilation. Gallbladder is absent. Pancreas is normal. Spleen is normal. Adrenal glands are normal. The kidneys are normal. There is no hydronephrosis. Urinary bladder is normal. Bowel is normal in caliber without obstruction or inflammation. There are surgical clips associated with the right colon. There is a suture line in the small bowel. No free fluid or air. No abdominal or pelvic lymphadenopathy. Aorta is normal in caliber without aneurysm. There are no suspicious osseus lesions. IMPRESSION: 1. No acute abnormality in the chest, abdomen or pelvis. Dictated by: Dictated on workstation # [id number]
== END ==
LOC: RAD 07:45
PROVIDERS: ATTEND Nurse Practitioner Family
DX: K44.9 Diaphragmatic hernia without obstruction or gangrene (principal); K21.9 Gastro-esophageal reflux disease without esophagitis
CPT/HCPCS: 36415; 71260; 74177; 82565; 84520

== ENCOUNTER → 2022-12-29 | Outpatient (CLI) | payer MEDICARE ==
[~2022-12-29] MED LIST changes: -HOLD METFORMIN - RECEIVED CONTRAST 20 ML VIAL IV SCH; -IOHEXOL 350 MG/ML 100 ML (OMNIPAQUE 350) VIAL IV ONE; -NS 100 ML (IVPB) BAG IV ONE
--- NOTE | 2022-12-29 17:18 | Diagnostic Imaging Report ---
EXAMINATION: Left ribs unilateral 2 view HISTORY: Rib pain COMPARISON: 06/10/2019 FINDINGS: No left-sided rib fracture is seen. No pneumothorax. Heart size is normal. No edema or pneumonia. Heart size is normal. IMPRESSION: 1. No left-sided rib fracture. Dictated by: Dictated on workstation # [id number]
== END ==
LOC: RAD 16:49
PROVIDERS: ATTEND Physician Assistant
DX: R07.81 Pleurodynia (principal)
CPT/HCPCS: 71101

== ENCOUNTER → 2023-01-13 | Outpatient (CLI) | payer MEDICARE ==
--- NOTE | 2023-01-13 16:20 | Diagnostic Imaging Report ---
EXAMINATION: Right tibial and fibular radiographs, 2 views. COMPARISON: None. HISTORY: 77-year-old female, fall. Right tibia and fibula pain. FINDINGS: There is a right total knee prosthesis. There is a normal variant os trigonum. There is no acute fracture. There is no cortical or aggressive bone destruction. IMPRESSION: 1. No identified acute bony abnormality of the right tibia or fibula. Dictated by: Dictated on workstation # [id number]
--- NOTE | 2023-01-13 16:39 | Diagnostic Imaging Report ---
EXAMINATION: Right knee radiographs, 3 views. COMPARISON: October 25, 2017. HISTORY: 77-year-old female, fall. Right medial knee pain. FINDINGS: There is a total right knee prosthesis. The hardware is intact. There is no periprosthetic lucency. There is no knee joint effusion. There is no acute fracture. IMPRESSION: 1. No acute bony abnormality of the right knee. 2. Intact right total knee prosthesis without identified complication. Dictated by: Dictated on workstation # [id number]
== END ==
LOC: RAD 09:45
PROVIDERS: ATTEND Nurse Practitioner Family
DX: M25.561 Pain in right knee (principal); Z96.651 Presence of right artificial knee joint
CPT/HCPCS: 73562; 73590

== ENCOUNTER → 2023-03-28 | Outpatient (CLI) | payer MEDICARE ==
--- NOTE | 2023-03-28 10:36 | Diagnostic Imaging Report ---
INDICATION: Postmenopausal screening COMPARISON: 02/05/2019 FINDINGS: AP Spine L1-L4: [BMD (g/cm2): 0.978] [T-Score: -1.8] [Z-Score: -0.1] [BMD Previous: 0.927] [BMD % Change: 5.5*] LT Hip Neck: [BMD (g/cm2): 0.713] [T-Score: -2.3] [Z-Score: -0.4] LT Hip Total: [BMD (g/cm2):0.816] [T-Score:-1.5] [Z-Score: 0.2] [BMD Previous: 0.801] [BMD % Change: 1.9] RT Hip Neck: [BMD (g/cm2):0.674] [T-Score:-2.6] [Z-Score:-0.7] RT Hip Total: [BMD (g/cm2):0.785] [T-score:-1.8] [Z-Score:0.0] [BMD Previous:0.774] [BMD % Change:1.4] *Indicates significant change from prior examination based on 95% confidence level. World Health Organization criteria for BMD interpretation classify patients as Normal (T-score at or above -1.0), Osteopenic (T-score between -1.0 and -2.5) or Osteoporotic (T-score at or below -2.5). LIMITATIONS AND MODIFICATION: None. FRACTURE RISK (FRAX SCORE): The ten year probability of (%): Major Osteoporotic Fracture: [27.2] Hip Fracture: [9.3] IMPRESSION: 1. Osteoporosis. 2. no significant change 3. See below National Osteoporosis Foundation guidelines on when to potentially initiate pharmacologic therapy. Based on the National Osteoporosis Foundation Guidelines, pharmacologic treatment should be initiated in any of the following, unless clinical conditions suggest otherwise: * Any patient with prior fragility fracture of the hip or vertebrae. A spine fracture indicates 5X risk for subsequent spine fracture and 2X risk for subsequent hip fracture. * Osteoporosis (T-score <-2.5). * Postmenopausal women and men age 50 and older with low bone mass/osteopenia (T-score between -1.0 and -2.5) by DXA and 10-year major osteoporotic fracture greater than 20% or a 10-year probability of hip fracture greater than 3%. These fracture risks are supplied above in the FRAX score, if applicable. * Clinician judgement and/or patient preferences may indicate treatment for people with 10-year fracture probabilities above or below these levels. Dictated by: Dictated on workstation # [id number]
== END ==
LOC: RAD 09:41
PROVIDERS: ATTEND Family Medicine
DX: M81.0 Age-related osteoporosis without current pathological fracture (principal)
CPT/HCPCS: 77080